=== PATIENT | male | born 1950 | race Caucasian/White ===

== ENCOUNTER 2019-05-04 10:35 | Outpatient (CLI) | payer MEDICARE, MEDICAID, SELFPAY ==
--- NOTE | 2019-05-06 21:25 | WPDPFTINT ---
PFT Interpretation PFT Interpretation: DOS: 05/04/2019 REQUESTING: Dr. Christa Clark REASON FOR TESTING: COPD PULMONARY FUNCTION TESTS Results are reproducible. Spirometry: Severe ventilatory impairment FEV1 49% predicted, 1.36 Liters. FVC moderately reduced 65%. FEV1% is decreased consistent with airflow obstruction. XUT42-61% extremely low 20% predicted. No bronchodilator was given. Lung volumes: Normal total lung capacity 102%. Moderate air trapping residual volume 147%. Increased airway resistance 223%. Diffusion: DLCO 84% normal. Flow volume loop: Scooping of the expiratory limb consistent with obstruction. IMPRESSION: Severe obstructive ventilatory defect with moderate air trapping, normal diffusion. Compared to a prior study 03/03/2014 values have improved. Previous FEV1 was 31%, 0.9 L pre bronchodilator. FVC was 47% now 65%. Spirometry values on the current test are better than the post bronchodilator values in 2014. There is less hyperinflation and less air trapping. Lower airway resistance. Marlene Loredo MD
== END 2019-05-04 10:36 | disposition home or self-care (01) ==
PROVIDERS: PCP Family Medicine; Visit Provider Family Medicine
DX: J44.9 Chronic obstructive pulmonary disease, unspecified (principal); R94.2 Abnormal results of pulmonary function studies
CPT/HCPCS: 94375; 94726; 94729

== ENCOUNTER 2019-09-10 08:20 | Outpatient (CLI) | payer MEDICARE, MEDICAID, SELFPAY ==
--- NOTE | ~2019-09-10 | CT_ITS ---
EXAMINATION: CT lung screening DATE: 09/10/2019 08:54 INDICATION: Personal history of tobacco dependence. TECHNIQUE: Computed tomography (CT) of the chest was performed without intravenous contrast. The dose -length product was 61.51 mGy-cm. Automated exposure control and iterative reconstruction technique w ere employed. COMPARISON: CT dated 07/22/2017 FINDINGS: Stable fusiform 4 cm aneurysm ascending thoracic aorta. No thoracic lymphadenopathy. There is atherosclerosis of the aorta and coronary arteries. Heart size normal. There is emphysema. Calcifi ed granuloma right lower lobe. There is left lower lobe bronchiectasis. The right upper lobe nodule s een on prior examination not visualized on the current study. Calcified granuloma left lower lobe. Mi ld thoracic spondylosis. No acute osseous abnormality. IMPRESSION: 1. Lung-RADS category 2: Benign appearance or behavior. Continue annual screening with noncontrast lo w-dose chest CT in 12 months. Reviewed, dictated and finalized at location A. IMPRESSION: 1. Lung-RADS category 2: Benign appearance or behavior. Continue annual screeni ng with noncontrast low-dose chest CT in 12 months.
== END 2019-09-10 08:21 | disposition home or self-care (01) ==
PROVIDERS: PCP Family Medicine; Visit Provider Family Medicine
DX: Z12.2 Encounter for screening for malignant neoplasm of respiratory organs (principal); Z87.891 Personal history of nicotine dependence
CPT/HCPCS: G0297

== ENCOUNTER 2020-03-23 07:20 | Outpatient (CLI) | payer MEDICARE, MEDICAID, SELFPAY ==
[2020-03-23 08:06] LABS: Basophils Percent Auto 0.5 % (0.2-1.2); Eosinophils Absolute Auto 0.4 K/mm3 (0-0.3); Eosinophils Percent Auto 4.3 % (0-4.4); Hematocrit 44.8 % (42.0-52.0); Hemoglobin 15.1 g/dL (14.0-18.0); Immature Granulocyte Absolute 0.03 K/mm3 (0.00-0.031); Immature Granulocyte Percent A 0.3 % (0-0.5); Lymphocytes Percent Auto 16.3 % (18.3-44.2); Mean Corpuscular HGB Conc 33.7 g/dl (32-36); Mean Corpuscular Hemoglobin 30.8 pg (26-34); Mean Corpuscular Volume 91.4 fl (80-100); Mean Platelet Volume 9.8 fl (7.4-10.4); Monocytes Absolute Auto 0.8 K/mm3 (0.1-0.6); Monocytes Percent Auto 9.4 % (2.6-8.5); Neutrophils Percent Auto 69.2 % (45.5-73.1); Platelet Count Result 279 k/mm3 (150-375); Red Cell Distribution Width 12.6 % (11.5-14.5); White Blood Count 8.6 K/mm3 (4.5-10.0)
[2020-03-23 08:11] LABS: Hemoglobin A1C 5.7 % (<5.7)
[2020-03-23 08:16] LABS: Alanine Aminotransferase 22 U/L (4-50); Albumin Level 4.3 g/dL (3.5-5.1); Alkaline Phosphatase 38 U/L (38-126); Anion Gap 6 mmol/L (8-16); Aspartate Amino Transferase 31 U/L (17-59); Bilirubin,Total 0.8 mg/dL (0.2-1.3); Blood Urea Nitrogen 11 mg/dL (9-20); Calcium 9.5 mg/dL (8.4-10.2); Carbon Dioxide 32 mmol/L (22-30); Chloride 99 mmol/L (98-107); Estimated Glomerular Filt Rate > 60; Glucose 104 mg/dL (75-110); Potassium 4.5 mmol/L (3.4-5.0); Sodium 137 mmol/L (137-145)
[2020-03-23 08:44] LABS: Prostate Specific Antigen 1.2 ng/mL (< OR = 4.0)
[2020-03-23 10:30] LABS: LDL Cholesterol Direct 75 mg/dL
[2020-03-23 10:35] LABS: Cholesterol 161 mg/dL (0-200); HDL Direct 65 mg/dL; Triglycerides 106 mg/dL (<150)
== END 2020-03-23 07:21 | disposition home or self-care (01) ==
PROVIDERS: PCP Family Medicine; Visit Provider Family Medicine
DX: R73.03 Prediabetes (principal); I10 Essential (primary) hypertension; E78.5 Hyperlipidemia, unspecified; Z12.5 Encounter for screening for malignant neoplasm of prostate
CPT/HCPCS: 36415; 80053; 80061; 83036; 84153; 84443; 85025; G0103

== ENCOUNTER 2020-11-22 07:08 | Outpatient (CLI) | payer MEDICARE, MEDICAID, SELFPAY ==
[2020-11-22 07:33] LABS: Basophils Absolute Auto 0.1 K/mm3 (0.0-0.1); Basophils Percent Auto 0.5 % (0.2-1.2); Eosinophils Absolute Auto 0.8 K/mm3 (0-0.3); Eosinophils Percent Auto 7.8 % (0-4.4); Hematocrit 45.9 % (42.0-52.0); Hemoglobin 15.3 g/dL (14.0-18.0); Immature Granulocyte Absolute 0.02 K/mm3 (0.00-0.031); Immature Granulocyte Percent A 0.2 % (0-0.5); Lymphocytes Percent Auto 13.1 % (18.3-44.2); Mean Corpuscular HGB Conc 33.3 g/dl (32-36); Mean Corpuscular Hemoglobin 31.1 pg (26-34); Mean Corpuscular Volume 93.3 fl (80-100); Mean Platelet Volume 9.2 fl (7.4-10.4); Monocytes Absolute Auto 0.8 K/mm3 (0.1-0.6); Monocytes Percent Auto 7.6 % (2.6-8.5); Neutrophils Absolute Auto 7.6 K/mm3 (1.3-6.7); Neutrophils Percent Auto 70.8 % (45.5-73.1); Platelet Count Result 271 k/mm3 (150-375); Red Blood Count 4.92 M/mm3 (4.6-6.20); Red Cell Distribution Width 12.9 % (11.5-14.5); White Blood Count 10.7 K/mm3 (4.5-10.0)
[2020-11-22 07:37] LABS: Hemoglobin A1C 5.6 % (<5.7)
[2020-11-22 07:41] LABS: Alanine Aminotransferase 22 U/L (4-50); Albumin Level 4.5 g/dL (3.5-5.1); Alkaline Phosphatase 41 U/L (38-126); Anion Gap 9 mmol/L (8-16); Aspartate Amino Transferase 35 U/L (17-59); Bilirubin,Total 0.7 mg/dL (0.2-1.3); Blood Urea Nitrogen 12 mg/dL (9-20); Calcium 9.4 mg/dL (8.4-10.2); Carbon Dioxide 25 mmol/L (22-30); Chloride 102 mmol/L (98-107); Cholesterol 163 mg/dL (0-200); Estimated Glomerular Filt Rate > 60; Glucose 85 mg/dL (65-110); HDL Direct 60 mg/dL; Potassium 3.9 mmol/L (3.4-5.0); Sodium 136 mmol/L (137-145); Triglycerides 96 mg/dL (<150)
[2020-11-22 07:52] LABS: LDL Cholesterol Direct 70 mg/dL
[2020-11-22 08:12] LABS: Vitamin D 25 Hydroxy 45.6 ng/mL
== END 2020-11-22 07:09 | disposition home or self-care (01) ==
PROVIDERS: PCP Family Medicine; Visit Provider Family Medicine
DX: Z00.00 Encounter for general adult medical examination without abnormal findings (principal); I10 Essential (primary) hypertension; E55.9 Vitamin D deficiency, unspecified; R73.03 Prediabetes; E78.5 Hyperlipidemia, unspecified
CPT/HCPCS: 36415; 80053; 80061; 82306; 83036; 84443; 85025

== ENCOUNTER 2021-06-28 07:04 | Outpatient (CLI) | payer MEDICARE, MEDICAID, SELFPAY ==
[2021-06-28 07:29] LABS: Basophils Absolute Auto 0.1 K/mm3 (0.0-0.1); Basophils Percent Auto 0.7 % (0.2-1.2); Eosinophils Absolute Auto 0.7 K/mm3 (0-0.3); Eosinophils Percent Auto 9.4 % (0-4.4); Hematocrit 44.3 % (42.0-52.0); Hemoglobin 15.4 g/dL (14.0-18.0); Immature Granulocyte Absolute 0.02 K/mm3 (0.00-0.031); Immature Granulocyte Percent A 0.3 % (0-0.5); Lymphocytes Absolute Auto 1.51 K/mm3 (0.9-3.2); Lymphocytes Percent Auto 20.2 % (18.3-44.2); Mean Corpuscular HGB Conc 34.8 g/dl (32-36); Mean Corpuscular Hemoglobin 31.7 pg (26-34); Mean Corpuscular Volume 91.2 fl (80-100); Mean Platelet Volume 9.7 fl (7.4-10.4); Monocytes Absolute Auto 0.8 K/mm3 (0.1-0.6); Monocytes Percent Auto 10.2 % (2.6-8.5); Neutrophils Absolute Auto 4.4 K/mm3 (1.3-6.7); Neutrophils Percent Auto 59.2 % (45.5-73.1); Platelet Count Result 314 k/mm3 (150-375); Red Blood Count 4.86 M/mm3 (4.6-6.20); White Blood Count 7.5 K/mm3 (4.5-10.0)
[2021-06-28 07:44] LABS: Hemoglobin A1C 5.4 % (<5.7)
[2021-06-28 07:50] LABS: Vitamin D 25 Hydroxy 46.2 ng/mL
[2021-06-28 08:10] LABS: Alanine Aminotransferase 22 U/L (4-50); Albumin Level 4.5 g/dL (3.5-5.1); Alkaline Phosphatase 38 U/L (38-126); Anion Gap 10 mmol/L (8-16); Aspartate Amino Transferase 32 U/L (17-59); Bilirubin,Total 0.8 mg/dL (0.2-1.3); Blood Urea Nitrogen 11 mg/dL (9-20); Calcium 9.1 mg/dL (8.4-10.2); Carbon Dioxide 27 mmol/L (22-30); Chloride 101 mmol/L (98-107); Cholesterol 175 mg/dL (0-200); Estimated Glomerular Filt Rate > 60; Glucose 95 mg/dL (65-110); HDL Direct 67 mg/dL; Potassium 3.9 mmol/L (3.4-5.0); Sodium 138 mmol/L (137-145); Triglycerides 88 mg/dL (<150)
[2021-06-28 08:28] LABS: LDL Cholesterol Direct 70 mg/dL
[2021-06-28 08:45] LABS: Prostate Specific Antigen 1.1 ng/mL (< OR = 4.0)
== END 2021-06-28 07:05 | disposition home or self-care (01) ==
PROVIDERS: PCP Family Medicine; Visit Provider Family Medicine
DX: E55.9 Vitamin D deficiency, unspecified (principal); R41.89 Other symptoms and signs involving cognitive functions and awareness; E78.5 Hyperlipidemia, unspecified; E53.8 Deficiency of other specified B group vitamins; I10 Essential (primary) hypertension; R73.03 Prediabetes; Z12.5 Encounter for screening for malignant neoplasm of prostate
CPT/HCPCS: 36415; 80053; 80061; 82306; 82607; 83036; 84153; 84443; 85025; G0103

== ENCOUNTER 2021-07-27 00:54 | Day surgery (SDC) | payer MEDICARE, MEDICAID, SELFPAY ==
[2021-07-17 12:02] VITALS: BMI 20.1
--- NOTE | 2021-07-26 15:14 | PM.HPGS ---
History of Present Illness History of Present Illness Consent: Risks, benefits, and alternatives have been discussed and questions answered. Patient agrees to proceed with procedure. Chief complaint: hx of colon polyps Narrative: Davion Valdez is a 70 year old male Referred for colon cancer screening. He has a history of polyps. Review of Systems Review of Systems: All systems reviewed & are unremarkable except as noted in HPI and below PMFSH Past Medical History Medical History Allergic rhinitis Environmental allergies GERD with esophagitis History of colon polyps History of stroke (~2014) HLD (hyperlipidemia) HTN (hypertension) Prediabetes Pulmonary nodule Severe chronic obstructive pulmonary disease Thoracic aortic aneurysm Surgical History Surgical History History of excision of mass 12/13/20 History of lumbosacral spine surgery 1980s History of umbilical hernia repair (~07/2016) History of ventral hernia repair (~07/2016) Family History Family History Sibling Cerebrovascular accident Hypertension Father Hypertension Other Family history of allergic disorder Family history of chronic obstructive pulmonary disease Social History Social History Social History: caffeine use: drinks coffee occasionally Smoking packs per day: 2 Smoking cigarettes per day: 40.0 Years smoked: 50 Smoking pack-years: 100.00 Tobacco type: cigarettes Smoking end date: 03/11/13 Alcohol intake: current Drinks per week: 28 Alcohol use details: drinks beer Substance use: never Living arrangements: with family Additional living arrangements comments: girlfriend Gender identity (if verbalized by the patient): Male Spiritual care concerns: No Meds Home Medications and Allergies Home Medications Medication Instructions Recorded Confirmed Type albuterol sulfate 90 mcg/actuation 2 puff INHALATION Q4H PRN #8.5 gm 04/29/19 07/27/21 Rx aerosol inhaler cetirizine 10 mg tablet 10 mg PO DAILY #30 tablet 11/16/20 07/27/21 Rx hydrochlorothiazide 12.5 mg tablet 12.5 mg PO DAILY #90 tablet 05/01/21 07/27/21 Rx losartan 25 mg tablet 25 mg PO DAILY tablet 06/27/21 07/27/21 History atorvastatin 20 mg tablet 20 mg PO QHS #90 tablet 07/03/21 07/27/21 Rx aspirin [Adult Low Dose Aspirin] 81 mg PO DAILY 07/17/21 07/27/21 History fluticasone propionate [Flovent 1 inh INHALATION DAILY 07/17/21 07/27/21 History Diskus] mv,Ca,bco-ofgg-CZ-lycopene 1 tablet PO DAILY 07/17/21 07/27/21 History [Centrum Men] omega-3 fatty acids-vitamin E 1 cap PO DAILY 07/17/21 07/27/21 History [Fish Oil] Allergies Allergy/AdvReac Type Severity Reaction Status Date / Time Penicillins Allergy Unknown unknown Verified 07/27/21 07:47 Exam Resp: Auscultation: clear to auscultation bilaterally Cardio: Rate: regular rate Rhythm: regular rhythm GI: GI Palp: Yes Soft to palpation and No Tenderness to palpation present (GI) Assessment and Plan Assessment and plan (1) Colon cancer screening: Code(s): Z12.11 - Encounter for screening for malignant neoplasm of colon Status: Acute Assessment and Plan: Colonoscopy with possible biopsy or polypectomy or cautery or injection of substances.
[2021-07-27 07:38] VITALS: BP 148/86; PULSE 96; RESP 18; TEMP 36.4; O2SAT 97; BMI 19.6
[2021-07-27] MEDS: LACTATED RINGERS 1,000 ML 150 ML IV CONT (07:58)
--- NOTE | 2021-07-27 08:25 | WPDANESEPPF ---
Anes - Initial Pre Proc Eval Procedure: Operation Date: 07/27/21 09:00 Proposed Procedures p Screening Colonoscopy - Anthony Morris MD Date/Time: 07/27/21 08:25 Surgeon: Anthony Morris MD Pre Op Diagnosis: hx of colon polyps Patient Data Age: 70 Gender: M Height: 1.65 m Weight: 53.5 kg Last Vital Signs Temp 36.4 C L 07/27/21 07:38 Pulse 96 07/27/21 07:38 Resp 18 07/27/21 07:38 BP 148/86 H 07/27/21 07:38 Pulse Ox 97 07/27/21 07:38 Allergies Allergy/AdvReac Type Severity Reaction Status Date / Time Penicillins Allergy Unknown unknown Verified 07/27/21 07:47 Home Medications Medication Instructions Recorded Confirmed Type albuterol sulfate 90 mcg/actuation 2 puff INHALATION Q4H PRN #8.5 gm 04/29/19 07/27/21 Rx aerosol inhaler cetirizine 10 mg tablet 10 mg PO DAILY #30 tablet 11/16/20 07/27/21 Rx hydrochlorothiazide 12.5 mg tablet 12.5 mg PO DAILY #90 tablet 05/01/21 07/27/21 Rx losartan 25 mg tablet 25 mg PO DAILY tablet 06/27/21 07/27/21 History atorvastatin 20 mg tablet 20 mg PO QHS #90 tablet 07/03/21 07/27/21 Rx aspirin [Adult Low Dose Aspirin] 81 mg PO DAILY 07/17/21 07/27/21 History fluticasone propionate [Flovent 1 inh INHALATION DAILY 07/17/21 07/27/21 History Diskus] mv,Ca,ufm-kjtq-IF-lycopene 1 tablet PO DAILY 07/17/21 07/27/21 History [Centrum Men] omega-3 fatty acids-vitamin E 1 cap PO DAILY 07/17/21 07/27/21 History [Fish Oil] Patient hx anesthesia problems: none Family hx anesthesia problems: none Results Review: All pre-operative results and documents have been reviewed as part of the pre-operative evaluation. [facility] Past Medical History Medical History (Updated 07/27/21 @ 08:27 by Calvin Lantigua MD) Allergic rhinitis Environmental allergies GERD with esophagitis History of colon polyps History of stroke (~2014) HLD (hyperlipidemia) HTN (hypertension) Prediabetes Pulmonary nodule Severe chronic obstructive pulmonary disease Thoracic aortic aneurysm 4cm on 2018 ct Surgical History Surgical History History of excision of mass 12/13/20 History of lumbosacral spine surgery 1980s History of umbilical hernia repair (~07/2016) History of ventral hernia repair (~07/2016) Family History Family History Sibling Cerebrovascular accident Hypertension Father Hypertension Other Family history of allergic disorder Family history of chronic obstructive pulmonary disease Social History Social History Social History: caffeine use: drinks coffee occasionally Smoking packs per day: 2 Smoking cigarettes per day: 40.0 Years smoked: 50 Smoking pack-years: 100.00 Tobacco type: cigarettes Smoking end date: 03/11/13 Alcohol intake: current Drinks per week: 28 Alcohol use details: drinks beer Substance use: never Living arrangements: with family Additional living arrangements comments: girlfriend Gender identity (if verbalized by the patient): Male Spiritual care concerns: No Anes - Eval Final PreProcedure Day of Procedure 07/27/21 08:25 Patient weight: obese Heart: regular rate and rhythm Lungs: clear to auscultation and normal air movement Airway: Mallampati scale class II Neurological: alert and oriented Last oral intake: >/= 8 hours ASA classification: III Emergent: no Anesthetic plan: proceed Anesthesia type and monitoring: general GIVS Results Review: All pre-operative results and documents have been reviewed as part of the pre-operative evaluation. Informed Consent: The patient's anesthetic plan and its attendant risks and benefits were discussed with the patient/family/POA. Questions were solicited and answers provided to the satisfaction of the patient/family/POA.
--- NOTE | 2021-07-27 09:16 | SUR.OPER ---
RN verified with Dr. Morris the collection of one sigmoid polyp
[2021-07-27 09:18] VITALS: BP 101/71; PULSE 89; RESP 22; O2SAT 99
[2021-07-27 09:28] VITALS: BP 111/78; PULSE 74; RESP 20; O2SAT 99
[2021-07-27 09:38] VITALS: BP 112/75; PULSE 74; RESP 22; O2SAT 99
== END 2021-07-27 09:53 | disposition home or self-care (01) ==
PROVIDERS: PCP Family Medicine; Visit Provider Internal Medicine Gastroenterology
PROC: 0DJD8ZZ Inspection of Lower Intestinal Tract, Via Natural or Artificial Opening Endoscopic (ICD-10-PCS; CPT 45378; principal; 2021-07-27 09:00)
DX: Z12.11 Encounter for screening for malignant neoplasm of colon (principal); K57.30 Diverticulosis of large intestine without perforation or abscess without bleeding; D12.5 Benign neoplasm of sigmoid colon; I10 Essential (primary) hypertension; E78.5 Hyperlipidemia, unspecified; R73.03 Prediabetes; K21.9 Gastro-esophageal reflux disease without esophagitis; J44.9 Chronic obstructive pulmonary disease, unspecified; I71.2 Thoracic aortic aneurysm, without rupture; Z79.51 Long term (current) use of inhaled steroids; Z79.82 Long term (current) use of aspirin; Z87.891 Personal history of nicotine dependence; E66.9 Obesity, unspecified
CPT/HCPCS: 45385; 88305; J2704; J7120

== ENCOUNTER 2021-07-28 06:36 | Outpatient (CLI) | payer MEDICARE, MEDICAID, SELFPAY ==
--- NOTE | ~2021-07-28 | CT_ITS ---
EXAMINATION: CT lung screening DATE: 07/28/2021 07:04 INDICATION: Z12.2 - Encounter for screening for malignant neoplasm of... TECHNIQUE: Computed tomography (CT) of the chest was performed without intravenous contrast. Addition al 3D reconstructions utilizing coronal maximum intensity projection (MIP) were performed. Automated exposure control and iterative reconstruction technique were employed. The dose-length product was 63 .21 mGy-cm. COMPARISON: 09/10/2019 FINDINGS: Mild emphysema. Again seen is mild bronchiectasis in the left lower lobe along with multiple <4 mm pu lmonary nodules. There are some new groundglass opacity along with several additional <4 mm pulmonary nodules in the right upper lobe. Calcified right lower lobe nodule and calcified mediastinal lymph n odes consistent with old granulomatous disease. No pleural effusion. Heart size is normal. Atheroscle rotic coronary artery calcification. Unchanged fusiform 4.1 cm ascending thoracic aortic aneurysm. No pathologically enlarged thoracic lymphadenopathy. IMPRESSION: 1. Lung-RADS category 2: Benign appearance or behavior. Continue annual screening with noncontrast lo w-dose chest CT in 12 months. 2. Unchanged 4.1 cm ascending thoracic aortic aneurysm. Reviewed, dictated and finalized at location A. IMPRESSION: 1. Lung-RADS category 2: Benign appearance or behavior. Continue annual screeni ng with noncontrast low-dose chest CT in 12 months. 2. Unchanged 4.1 cm ascending thoracic aortic aneurysm.
== END 2021-07-28 06:37 | disposition home or self-care (01) ==
PROVIDERS: PCP Family Medicine; Visit Provider Family Medicine
DX: Z12.2 Encounter for screening for malignant neoplasm of respiratory organs (principal); Z87.891 Personal history of nicotine dependence; I71.2 Thoracic aortic aneurysm, without rupture
CPT/HCPCS: 71271

== ENCOUNTER 2021-10-11 08:19 | Outpatient (CLI) | payer MEDICARE, MEDICAID, SELFPAY ==
[2021-10-11 10:06] LABS: Anion Gap 10 mmol/L (8-16); Blood Urea Nitrogen 13 mg/dL (9-20); Calcium 9.1 mg/dL (8.4-10.2); Carbon Dioxide 29 mmol/L (22-30); Chloride 101 mmol/L (98-107); Estimated Glomerular Filt Rate > 60; Glucose 95 mg/dL (65-110); Potassium 4.2 mmol/L (3.4-5.0); Sodium 140 mmol/L (137-145)
== END 2021-10-11 08:20 | disposition home or self-care (01) ==
LOC: ANHSURGERY 08:26
PROVIDERS: Anesthesiology; PCP Family Medicine; Visit Provider Surgery
DX: Z01.818 Encounter for other preprocedural examination (principal); Z79.899 Other long term (current) drug therapy
CPT/HCPCS: 36415; 80048

== ENCOUNTER 2021-10-13 01:19 | Day surgery (SDC) | payer MEDICARE, MEDICAID, SELFPAY ==
[2021-10-10 13:44] VITALS: BMI 19.8
--- NOTE | 2021-10-10 13:45 | PC.NURSE ---
PRE-OP INSTRUCTIONS, PLEASE READ CAREFULLY Report to the Outpatient Waiting Room, entrance under the green pavilion located off [facility], at time _0930_ on date _10/13/21_. OR Time: _1130_. - You and your visitor will be asked a series of questions to screen for COVID 19 for your protection. - Only one visitor is allowed at this time. - The patient visitor is requested to leave or wait in car when not with patient. - A mask is required within the hospital. Patients may have clear liquids (water, carbonated beverages, clear teas, apple juice) until 3 hours prior to surgery (0830 AM) with a maximum of 20 ounces. - No food from midnight until time of surgery Take the following medications with a SIP of water the morning of surgery: _FLOVENT INHALER_ Medications to discontinue per physician _MULTIVITAMIN, FISH OIL 3 DAYS PRIOR TO SURGERY, Date to take last dose 10/10/21_ Please no make-up, nail vietnamese, hairspray, perfume, deodorant, or body powder the day of surgery. No jewelry (including any body piercings) or valuables the day of surgery, leave them at home. Please take a shower or bath the night before, or the morning of, surgery with an antibacterial soap. Wear comfortable, loose fitting clothing. - Jewelry must be removed prior to entering the operating room. Rings and piercings that are not removed may be cut off. - The hospital will not accept responsibility for valuables. - Please leave all valuables, including medications, at home the day of surgery. If you are going home after surgery, a licensed recycler forklift driver truck driver must drive you home. - NO public transportation without another adult. - We recommend that an adult stay with you for 24 hours following discharge. - We also recommend that you do not drive, make important decision, drink alcoholic beverages, or take any drugs that were not prescribed by your health care provider for at least 24 hours after your discharge time. Follow any additional instructions given to you from your surgeon. If you or anyone in your household have experienced Covid symptoms in the past week, please notify your surgeon or the nurse liaison at the phone number below for possible testing. Telephone instructions given to _CLARA WARD_and asked if any additional questions and then verbalized understanding. Patient advised to call surgeon office or pre surgery nurse liaison [phone] if any additional questions.
[2021-10-13] VITALS (7 sets, daily range): BP systolic 124–143; BP diastolic 61–85; PULSE 72–95; RESP 16–25; TEMP 36.4; O2SAT 96–100
[2021-10-13] MEDS: LACTATED RINGERS 1,000 ML 30 ML IV CONT (10:40)
--- NOTE | 2021-10-13 11:26 | WPDANESEPPF ---
Anes - Initial Pre Proc Eval Procedure: Operation Date: 10/13/21 11:30 Proposed Procedures p Excision Skin Lesions Of Back, Times Two - Paul Cheatham DO Date/Time: 10/13/21 11:26 Surgeon: Paul Cheatham DO Pre Op Diagnosis: Skin Lesion of Back Patient Data Age: 70 Gender: M Height: 1.65 m Weight: 53 kg Last Vital Signs Temp 97.5 F L 10/13/21 09:54 Pulse 95 10/13/21 09:54 Resp 22 H 10/13/21 09:54 BP 137/61 10/13/21 09:54 Pulse Ox 97 10/13/21 09:54 O2 Del Method Room Air 10/13/21 09:54 Allergies Allergy/AdvReac Type Severity Reaction Status Date / Time Penicillins Allergy Unknown THROAT Verified 10/13/21 09:54 SWELLING Home Medications Medication Instructions Recorded Confirmed Type albuterol sulfate 90 mcg/actuation 2 puff inhalation Q4H PRN 04/29/19 10/13/21 Rx aerosol inhaler bronchospasm #8.5 grams cetirizine 10 mg tablet (Zyrtec) 10 mg PO DAILY #30 tabs 11/16/20 10/13/21 Rx hydrochlorothiazide 12.5 mg tablet 12.5 mg PO DAILY #90 tabs 05/01/21 10/13/21 Rx losartan 25 mg tablet 25 mg PO DAILY 06/27/21 10/13/21 History atorvastatin 20 mg tablet 20 mg PO QHS #90 tabs 07/03/21 10/13/21 Rx aspirin 81 mg tablet 81 mg PO DAILY 07/17/21 10/13/21 History fluticasone propionate 250 1 inh inhalation DAILY 07/17/21 10/13/21 History mcg/actuation blister powder for inhalation (Flovent Diskus) multivit,Ca,min-iron 8 mg-folic 1 tablet PO DAILY 07/17/21 10/13/21 History acid 200 mcg-lycopene 600 mcg tablet (Centrum Men) omega-3 fatty acids-vitamin E 1 cap PO DAILY 07/17/21 10/13/21 History 1,000 mg capsule Patient hx anesthesia problems: none Family hx anesthesia problems: none Results Review: All pre-operative results and documents have been reviewed as part of the pre-operative evaluation. PMFSH Past Medical History Medical History Allergic rhinitis Environmental allergies GERD with esophagitis History of colon polyps History of stroke (~2014) HLD (hyperlipidemia) HTN (hypertension) Prediabetes Pulmonary nodule Severe chronic obstructive pulmonary disease Thoracic aortic aneurysm 4cm on 2018 ct Surgical History Surgical History History of excision of mass 12/13/20 History of lumbosacral spine surgery 1980s History of umbilical hernia repair (~07/2016) History of ventral hernia repair (~07/2016) Family History Family History Sibling Cerebrovascular accident Hypertension Father Hypertension Other Family history of allergic disorder Family history of chronic obstructive pulmonary disease Social History Social History Social History: caffeine use: drinks coffee occasionally Smoking packs per day: 2 Smoking cigarettes per day: 40.0 Years smoked: 50 Smoking pack-years: 100.00 Smoking status: Former smoker Tobacco type: cigarettes Second hand tobacco smoke exposure: No Smoking end date: 03/11/13 Additional smoking assessment comments: HOW MUCH/HOW LONG PT SMOKED UNKOWN, SIGNIFICANT OTHER STATES PT QUIT 2013 Alcohol intake: current Drinks per week: 28 Alcohol use details: drinks beer Substance use: never Substance use type: does not use Living arrangements: other Additional living arrangements comments: LIVES WITH SIGNIFICANT OTHER Gender identity (if verbalized by the patient): Male Spiritual care concerns: No Anes - Eval Final PreProcedure Day of Procedure 10/13/21 11:26 Patient weight: normal Heart: regular rate and rhythm Lungs: clear to auscultation Airway: Mallampati scale class II Neurological: alert and oriented Last oral intake: >/= 8 hours ASA classification: III Emergent: no Anesthetic plan: proceed Anesthesia type and monitoring: general LM
--- NOTE | 2021-10-13 11:28 | WPDHPUPDATE1 ---
History and Physical Update Update Date/Time: 10/13/21 11:28 History and Physical has been reviewed, including an updated exam of the patient. There are NO changes in the patient's condition. Risks, benefits, and alternatives have been discussed and questions answered. Patient agrees to proceed with procedure.
[2021-10-13] MEDS: ceFAZolin 2 GM/D5W 50 ML 2 GM/50 ML BAG IVPB (11:47)
[2021-10-13] MEDS: LIDO 1%/EPINEPHRINE 1:100,000 50 ML VIAL 10 ML INFILTRATE (12:07)
--- NOTE | 2021-10-13 12:22 | W.PM.PROC2 ---
Procedure Note - Detailed Date of Procedure 10/13/21 Pre-op Diagnosis Skin Lesion of Back Post-op Diagnosis Same Procedure Performed Excision of 13 mm back skin lesion x2 Surgeon Paul Cheatham, DO Anesthesia MAC and Local (1% lidocaine with epinephrine) Indications This is a 70-year-old man who presented with 2 skin lesions on his back. They had been increasing in size recently and the 1 on his left lower back was causing pain. Both lesions were raised pink discolored skin lesions measuring 11 mm. Discussions were made with the patient about treatment options and decision was made to proceed with excision of both or skin lesions under IV sedation. Findings Patient had a left lower back skin lesion measuring 11 mm. An elliptical incision was made to excise this skin lesion completely with 1 mm margins for a total width of 13 mm. Patient also had an upper midline back skin lesion also measuring 11 mm. A vertical elliptical incision was made to excise the skin lesion completely with 1 mm margins for a total width of 13 mm. Both skin lesions were sent to the lab for pathology. Description of Procedure Procedure as well as risks, benefits, and alternatives were discussed with the patient. Written consent was obtained and placed in chart prior to procedure. Patient was brought back to surgical suite. He was placed supine on operating table. Time-out was done confirm patient and procedure. IV sedation was then administered by Anesthesia Department. He was then repositioned into right lateral position. His back area was prepped and draped in sterile fashion using chlorhexidine prep. 1% lidocaine with epinephrine was infiltrated locally around each of the lesions. An elliptical incision was made around the left lower back skin lesion in a transverse fashion using a 15 blade scalpel. The skin lesion was sharply excised completely using the 15 blade scalpel. Electrocautery was then used for hemostasis. The skin edges were then reapproximated using 4-0 nylon simple interrupted sutures. A vertical elliptical incision was made around the upper midline back skin lesion using a 15 blade scalpel. The skin lesion was completely excised using the 15 blade scalpel. Electrocautery was used for hemostasis. The skin edges were then reapproximated using 4-0 nylon simple interrupted sutures. Bacitracin ointment was then applied over each incision followed by 2 x 2 gauze and Tegaderm dressing. The patient was then awakened from anesthesia and transferred to recovery. Estimated Blood Loss 5 Pathology Yes (Back skin lesion x2) Complications No immediate complications Condition Stable Disposition Same day [facility] Billing Surgery - Charge Forward: Surgery Billing
== END 2021-10-13 13:50 | disposition home or self-care (01) ==
PROVIDERS: PCP Family Medicine; Visit Provider Surgery
PROC: (CPT 64788; principal; 2021-10-13 11:30)
DX: D36.17 Benign neoplasm of peripheral nerves and autonomic nervous system of trunk, unspecified (principal); Z79.82 Long term (current) use of aspirin; Z79.51 Long term (current) use of inhaled steroids; K21.00 Gastro-esophageal reflux disease with esophagitis, without bleeding; I10 Essential (primary) hypertension; E78.5 Hyperlipidemia, unspecified; R73.03 Prediabetes; J44.9 Chronic obstructive pulmonary disease, unspecified; I71.2 Thoracic aortic aneurysm, without rupture; Z87.891 Personal history of nicotine dependence
CPT/HCPCS: 64788 ×2; 36415; 80048; 88304; 88342; A9270; J0690; J2704; J3010; J7120

== ENCOUNTER 2022-07-03 11:42 | Outpatient (CLI) | payer MEDICARE, MEDICAID, SELFPAY ==
[2022-07-03 20:04] LABS: Alanine Aminotransferase 24 U/L (6-50); Albumin Level 4.3 g/dL (3.5-5.1); Alkaline Phosphatase 36 U/L (38-126); Anion Gap 5 mmol/L (8-16); Aspartate Amino Transferase 40 U/L (17-59); Bilirubin,Total 0.7 mg/dL (0.2-1.3); Blood Urea Nitrogen 11 mg/dL (9-20); Carbon Dioxide 36 mmol/L (22-30); Chloride 97 mmol/L (98-107); Cholesterol 159 mg/dL (0-200); Estimated Glomerular Filt Rate > 60; Glucose 101 mg/dL (65-110); HDL Direct 53 mg/dL; Potassium 3.7 mmol/L (3.4-5.0); Sodium 138 mmol/L (137-145); Triglycerides 211 mg/dL (<150)
[2022-07-03 20:15] LABS: LDL Cholesterol Direct 69 mg/dL
[2022-07-03 20:30] LABS: Vitamin D 25 Hydroxy 36.9 ng/mL
[2022-07-03 20:32] LABS: Prostate Specific Antigen 1.2 ng/mL (< OR = 4.0)
[2022-07-03 20:35] LABS: Basophils Absolute Auto 0.1 K/mm3 (0.0-0.1); Basophils Percent Auto 0.4 % (0.2-1.2); Eosinophils Absolute Auto 0.4 K/mm3 (0-0.3); Eosinophils Percent Auto 3.7 % (0-4.4); Immature Granulocyte Absolute 0.04 K/mm3 (0.00-0.031); Immature Granulocyte Percent A 0.4 % (0-0.5); Lymphocytes Absolute Auto 1.17 K/mm3 (0.9-3.2); Lymphocytes Percent Auto 10.4 % (18.3-44.2); Mean Corpuscular HGB Conc 32.6 g/dl (32-36); Mean Corpuscular Hemoglobin 30.5 pg (26-34); Mean Corpuscular Volume 93.5 fl (80-100); Mean Platelet Volume 10.5 fl (7.4-10.4); Monocytes Percent Auto 9.1 % (2.6-8.5); Neutrophils Absolute Auto 8.6 K/mm3 (1.3-6.7); Platelet Count Result 321 k/mm3 (150-375); Red Blood Count 4.92 M/mm3 (4.6-6.20); White Blood Count 11.3 K/mm3 (4.5-10.0)
[2022-07-03 21:14] LABS: Hemoglobin A1C 5.5 % (<5.7)
== END 2022-07-03 11:43 | disposition home or self-care (01) ==
LOC: ANHGOSHLAB 11:44
PROVIDERS: PCP Family Medicine; Visit Provider Family Medicine
DX: E55.9 Vitamin D deficiency, unspecified (principal); I10 Essential (primary) hypertension; E78.5 Hyperlipidemia, unspecified; E53.8 Deficiency of other specified B group vitamins; R73.03 Prediabetes; Z12.5 Encounter for screening for malignant neoplasm of prostate
CPT/HCPCS: 36415; 80053; 80061; 82306; 82607; 83036; 84153; 84443; 85025; G0103

== ENCOUNTER 2022-07-18 08:58 | Outpatient (CLI) | payer MEDICARE, MEDICAID, SELFPAY ==
--- NOTE | 2022-07-18 12:41 | WPDPFTINT ---
PFT Procedure Performed PFT Procedure Performed Spirometry with Pre/Post Bronchodilator Plethysmography (Lung Vol) Diffusing Cap (DLCO) Flow Vol Loop PFT Interpretation This is a pulmonary function test with pre and post-bronchodilator spirometry, plethysmography and diffusing capacity. The test was performed and results interpreted in accordance with the 2019 and 2005 ATS/ERS Task Force guidelines respectively using the Global Lung Function Initiative-2012 reference equations. Patient demonstrated good effort and cooperation. Reproducibility criteria were met. The quality of the pre bronchodilator spirometry maneuver was Grade B and post bronchodilator spirometry maneuver was Grade B. Findings: Spirometry: There is decreased maximal expiratory airflow at all lung volumes with concave expiratory flow tracing. Contour the inspiratory flow tracing is normal. The pre bronchodilator FVC is 2.31 L, 61% predicted. The pre bronchodilator FEV1 is 1.23 L, 42% predicted. The pre bronchodilator FEV1: FVC ratio is 53%. The post bronchodilator FVC is 3.12 L, representing a 35% increase. The post bronchodilator FEV1 is 1.31 L, representing a 6% increase. The post bronchodilator FEV1: FVC ratio is 42%. Plethysmography: The total lung capacity is 6.44 L, 101% predicted. The functional residual capacity is 4.88 L, 145% predicted. The residual volume is 4.13 L, 181% predicted. Diffusion capacity: Diffusing capacity unadjusted for hemoglobin and carboxyhemoglobin is 12.4, 50% predicted. The diffusing capacity adjusted for alveolar volume is 4.04, 98% predicted. Impression: There is a severe obstructive abnormality with significant improvement after inhaling a single dose of albuterol. The increase in residual volume is consistent with air trapping from an obstructive abnormality. Hyperinflation is present as demonstrated by the increase in functional residual capacity and is consistent with an obstructive abnormality. The diffusing capacity unadjusted for hemoglobin and carboxyhemoglobin is moderately decreased and normalizes when adjusted for alveolar volume. There are no prior studies for comparison
== END 2022-07-18 08:59 | disposition home or self-care (01) ==
LOC: ANHPFT 08:59
PROVIDERS: PCP Family Medicine; Visit Provider Family Medicine
DX: J44.9 Chronic obstructive pulmonary disease, unspecified (principal); R94.2 Abnormal results of pulmonary function studies
CPT/HCPCS: 94060; 94726; 94729

== ENCOUNTER 2022-08-23 17:44 | Emergency (ER) | payer MEDICARE, MEDICAID, SELFPAY ==
[2022-08-23 17:59] VITALS: BP 124/83; PULSE 101; RESP 18; TEMP 36.6; O2SAT 96
--- NOTE | 2022-08-23 22:11 | PC.NURSE ---
Pt is requesting help to quit drinking. States his last drink was 07/20/22 and was in nursing home for the past 20 days. He was released on 08/10. This RN informed him that he has already completely detoxed from alcohol. When this RN asked him what emergent medical emergency we can help him with tonight, his family member states He needs help because he has nowhere to go since he was kicked out of the mobile home . This RN educated pt and family member about the use of the ER, including treatment of emergent conditions. This RN offered pt list of homeless shelters and pt states That's all anybody's been doing for me. Offering resources . Pt has no complaints. Denies pain. Denies n/v/d.
[2022-08-23 22:38] VITALS: BP 127/83; PULSE 88; RESP 18; O2SAT 98
--- NOTE | 2022-08-23 22:58 | PC.NURSE ---
List of homeless shelters and list of AA meetings provided to pt. Pt demands to be admitted to the hospital because he is homeless and doesn't have anywhere to go. This RN informed pt that we cannot admit pt to the hospital because he is homeless. Pt states I'm ill. I want to drink all the time . This RN reinforced that pt will not be admitted to the hospital. This RN encouraged pt to contact AA to attend meetings to continue his sobriety.
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
[2022-08-23 23:13] VITALS: BP 127/88; PULSE 87; RESP 18; O2SAT 96
== END 2022-08-23 23:16 | disposition home or self-care (01) ==
PROVIDERS: Emergency Provider Physician Assistant; PCP Family Medicine
DX: F10.90 Alcohol use, unspecified, uncomplicated (principal); J44.9 Chronic obstructive pulmonary disease, unspecified; E78.5 Hyperlipidemia, unspecified; I10 Essential (primary) hypertension; R73.03 Prediabetes; Z86.010 Personal history of colon polyps; Z86.73 Personal history of transient ischemic attack (TIA), and cerebral infarction without residual deficits; Z87.891 Personal history of nicotine dependence
CPT/HCPCS: 99281

== ENCOUNTER 2023-06-21 08:06 | Outpatient (CLI) | payer MEDICARE, MEDICAID, SELFPAY ==
[2023-06-21 08:31] LABS: Basophils Percent Auto 0.4 % (0.2-1.2); Eosinophils Absolute Auto 0.5 K/mm3 (0-0.3); Eosinophils Percent Auto 5.6 % (0-4.4); Hematocrit 47.1 % (42.0-52.0); Immature Granulocyte Absolute 0.03 K/mm3 (0.00-0.031); Immature Granulocyte Percent A 0.3 % (0-0.5); Lymphocytes Absolute Auto 1.51 K/mm3 (0.9-3.2); Lymphocytes Percent Auto 15.7 % (18.3-44.2); Mean Corpuscular HGB Conc 31.8 g/dl (32-36); Mean Corpuscular Hemoglobin 29.9 pg (26-34); Mean Corpuscular Volume 93.8 fl (80-100); Mean Platelet Volume 9.6 fl (7.4-10.4); Monocytes Absolute Auto 0.7 K/mm3 (0.1-0.6); Monocytes Percent Auto 7.7 % (2.6-8.5); Neutrophils Absolute Auto 6.8 K/mm3 (1.3-6.7); Neutrophils Percent Auto 70.3 % (45.5-73.1); Platelet Count Result 298 k/mm3 (150-375); Red Blood Count 5.02 M/mm3 (4.6-6.20); Red Cell Distribution Width 13.5 % (11.5-14.5); White Blood Count 9.6 K/mm3 (4.5-10.0)
[2023-06-21 08:40] LABS: Alanine Aminotransferase 16 U/L (6-50); Albumin Level 4.2 g/dL (3.5-5.1); Alkaline Phosphatase 43 U/L (38-126); Anion Gap 5 mmol/L (4-12); Aspartate Amino Transferase 29 U/L (17-59); Bilirubin,Total 0.7 mg/dL (0.2-1.3); Blood Urea Nitrogen 11 mg/dL (9-20); Calcium 9.5 mg/dL (8.4-10.2); Carbon Dioxide 29 mmol/L (22-30); Chloride 106 mmol/L (98-107); Cholesterol 203 mg/dL (0-200); Estimated Glomerular Filt Rate > 60; Glucose 97 mg/dL (65-110); HDL Direct 67 mg/dL; Potassium 4.1 mmol/L (3.4-5.0); Sodium 140 mmol/L (137-145); Triglycerides 137 mg/dL (<150)
[2023-06-21 08:51] LABS: Hemoglobin A1C 5.6 % (<5.7); LDL Cholesterol Direct 116 mg/dL
[2023-06-21 09:16] LABS: Vitamin D 25 Hydroxy 27.4 ng/mL
== END 2023-06-21 08:07 | disposition home or self-care (01) ==
LOC: ANHLAB 08:09
PROVIDERS: PCP Family Medicine; Visit Provider Nurse Practitioner Family
DX: J44.9 Chronic obstructive pulmonary disease, unspecified (principal); E78.5 Hyperlipidemia, unspecified; Z13.29 Encounter for screening for other suspected endocrine disorder; E55.9 Vitamin D deficiency, unspecified; R73.03 Prediabetes
CPT/HCPCS: 36415; 80053; 80061; 82306; 83036; 84443; 85025

== ENCOUNTER 2024-07-02 11:25 | Outpatient (CLI) | payer MEDICARE, MEDICAID, SELFPAY ==
[2024-07-02 12:27] LABS: Alanine Aminotransferase 24 U/L (6-50); Albumin Level 4.4 g/dL (3.5-5.1); Alkaline Phosphatase 45 U/L (38-126); Anion Gap 6 mmol/L (4-12); Aspartate Amino Transferase 29 U/L (17-59); Bilirubin,Total 1.2 mg/dL (0.2-1.3); Blood Urea Nitrogen 17 mg/dL (9-20); Carbon Dioxide 34 mmol/L (22-30); Chloride 96 mmol/L (98-107); Cholesterol 167 mg/dL (0-200); Estimated Glomerular Filt Rate > 60; Glucose 95 mg/dL (65-110); HDL Direct 72 mg/dL; Potassium 3.4 mmol/L (3.4-5.0); Sodium 136 mmol/L (137-145); Triglycerides 99 mg/dL (<150)
[2024-07-02 12:40] LABS: LDL Cholesterol Direct 61 mg/dL
[2024-07-02 12:45] LABS: Creatinine Urine 284.4 mg/dL
[2024-07-02 12:49] LABS: MALB Creatinine Ratio 7.4 mg/g (0-30); Microalbumin Urine Random 21.1 mg/L (0-16.7)
[2024-07-02 12:54] LABS: Hemoglobin A1C 5.7 % (<5.7)
[2024-07-02 12:57] LABS: Prostate Specific Antigen 1.3 ng/mL (< OR = 4.0)
[2024-07-03 23:19] LABS: Hepatitis C Virus Antibody Negative (Negative)
== END 2024-07-02 11:26 | disposition home or self-care (01) ==
LOC: ANHLAB 11:27
PROVIDERS: PCP Family Medicine; Visit Provider Family Medicine
DX: Z13.1 Encounter for screening for diabetes mellitus (principal); Z11.59 Encounter for screening for other viral diseases; E78.5 Hyperlipidemia, unspecified; I10 Essential (primary) hypertension; Z12.5 Encounter for screening for malignant neoplasm of prostate
CPT/HCPCS: 36415; 80053; 80061; 82043; 83036; 84153; 86803; G0103

== ENCOUNTER 2024-07-07 08:06 | Outpatient (CLI) | payer MEDICARE, MEDICAID, SELFPAY ==
--- NOTE | ~2024-07-07 | CT_ITS ---
CT Scan of the Chest without Contrast: Clinical Indication: Lung cancer screening, nicotine dependence Technique: Contiguous sections were acquired throughout the chest without intravenous contrast. Dose reduction technique was used on this scan by utilizing automated exposure control and iterative recon struction technique. The dose-length product (DLP) was 62.71 mGy-cm. COMPARISON: 07/28/2021 Findings: There is no evidence of any significant mediastinal, hilar or axillary lymphadenopathy. Extensive cor onary artery calcium cages are present. Ascending aorta measures 4 cm in diameter, upper limits of no rmal. There is no evidence of pleural or pericardial effusion. There is probable mild emphysema. There are scattered tree-in-bud opacities with mild bronchiolectasi s, most notably at the lingula and anteroinferior right upper lobe. There are similar findings in the left lower lobe as well. Images through the upper abdomen reveal no abnormalities. Impression: Lung RADS 2: Benign appearance. [address] advised. Findings compatible with acute on chronic small airways infectious process, as detailed above. Mild e mphysema. Reviewed, dictated and finalized at location . Impression: Lung RADS 2: Benign appearance. [address] advised. Findings compatible with acute on chronic small airways infectious process, as detailed above. Mild emphysema.
== END 2024-07-07 08:07 | disposition home or self-care (01) ==
PROVIDERS: PCP Family Medicine; Visit Provider Family Medicine
DX: Z12.2 Encounter for screening for malignant neoplasm of respiratory organs (principal); Z87.891 Personal history of nicotine dependence
CPT/HCPCS: 71271

== ENCOUNTER 2024-09-28 10:03 | Outpatient (CLI) | payer MEDICARE, MEDICAID, SELFPAY ==
[2024-09-28 10:55] LABS: Hematocrit 43.4 % (42.0-52.0); Hemoglobin 14.6 g/dL (14.0-18.0); Immature Granulocyte Percent A 0.4 % (0-0.5); Lymphocytes Absolute Auto 1.22 K/mm3 (0.9-3.2); Mean Corpuscular HGB Conc 33.6 g/dl (32-36); Mean Corpuscular Hemoglobin 30.7 pg (26-34); Mean Corpuscular Volume 91.4 fl (80-100); Nucleated Red Blood Cells Absolute Auto 0.000 K/mm3 (0.0-0.012); Nucleated Red Blood Cells Perc 0.0 % (0.0-0.2); Platelet Count Result 281 k/mm3 (150-375); Red Blood Count 4.75 M/mm3 (4.6-6.20); White Blood Count 13.6 K/mm3 (4.5-10.0)
[2024-09-28 11:16] LABS: Alanine Aminotransferase 32 U/L (6-50); Albumin Level 4.5 g/dL (3.5-5.1); Alkaline Phosphatase 39 U/L (38-126); Anion Gap 7 mmol/L (4-12); Aspartate Amino Transferase 44 U/L (17-59); Bilirubin,Total 1.6 mg/dL (0.2-1.3); Blood Urea Nitrogen 19 mg/dL (9-20); Calcium 9.5 mg/dL (8.4-10.2); Carbon Dioxide 31 mmol/L (22-30); Chloride 96 mmol/L (98-107); Estimated Glomerular Filt Rate > 60; Glucose 112 mg/dL (65-110); Potassium 3.1 mmol/L (3.4-5.0); Sodium 134 mmol/L (137-145); Total Protein 8.3 g/dL (6.3-8.2)
[2024-09-28 11:47] LABS: Thyroid Stimulating Hormone Reflex 1.330 uIU/mL (0.465-4.68)
== END 2024-09-28 10:04 | disposition home or self-care (01) ==
PROVIDERS: PCP Family Medicine; Visit Provider Family Medicine
DX: I10 Essential (primary) hypertension (principal); R55 Syncope and collapse
CPT/HCPCS: 36415; 80053; 84443; 85025; 85380

== ENCOUNTER 2024-10-13 11:11 | Outpatient (CLI) | payer MEDICARE, MEDICAID, SELFPAY ==
--- NOTE | ~2024-10-13 | XR_ITS ---
Clinical Indication: Shortness of breath PA and lateral views of the chest: Comparison: 02/09/2014 Findings: The lungs are clear, without evidence of focal consolidation or pleural effusion. COPD lora duong present. Cardiomediastinal silhouette is within normal limits. Bones and soft tissues are unremar kable. Impression: Clear lungs. Probable COPD. Reviewed, dictated and finalized at location . Impression: Clear lungs. Probable COPD.
[2024-10-13 12:14] LABS: Hematocrit 44.4 % (42.0-52.0); Hemoglobin 14.5 g/dL (14.0-18.0); Immature Granulocyte Percent A 0.3 % (0-0.5); Lymphocytes Absolute Auto 1.07 K/mm3 (0.9-3.2); Mean Corpuscular HGB Conc 32.7 g/dl (32-36); Mean Corpuscular Hemoglobin 30.9 pg (26-34); Mean Corpuscular Volume 94.7 fl (80-100); Nucleated Red Blood Cells Absolute Auto 0.000 K/mm3 (0.0-0.012); Nucleated Red Blood Cells Perc 0.0 % (0.0-0.2); Platelet Count Result 357 k/mm3 (150-375); Red Blood Count 4.69 M/mm3 (4.6-6.20); White Blood Count 9.1 K/mm3 (4.5-10.0)
[2024-10-13 12:33] LABS: Alanine Aminotransferase 33 U/L (6-50); Albumin Level 4.5 g/dL (3.5-5.1); Alkaline Phosphatase 38 U/L (38-126); Anion Gap 10 mmol/L (4-12); Aspartate Amino Transferase 35 U/L (17-59); Bilirubin,Total 0.8 mg/dL (0.2-1.3); Blood Urea Nitrogen 11 mg/dL (9-20); Calcium 9.6 mg/dL (8.4-10.2); Carbon Dioxide 29 mmol/L (22-30); Chloride 100 mmol/L (98-107); Estimated Glomerular Filt Rate > 60; Glucose 101 mg/dL (65-110); Potassium 3.9 mmol/L (3.4-5.0); Sodium 139 mmol/L (137-145); Total Protein 7.8 g/dL (6.3-8.2)
== END 2024-10-13 11:12 | disposition home or self-care (01) ==
PROVIDERS: PCP Family Medicine; Visit Provider Family Medicine
DX: R06.02 Shortness of breath (principal); R42 Dizziness and giddiness; E78.5 Hyperlipidemia, unspecified
CPT/HCPCS: 36415; 71046; 80053; 85025

== ENCOUNTER 2024-12-17 08:28 | Outpatient (CLI) | payer MEDICARE, MEDICAID, SELFPAY ==
--- NOTE | ~2024-12-17 | NM_ITS ---
EXAMINATION: NM hill stress w perfusion DATE: 12/17/2024 11:56 INDICATION: Shortness of breath. TECHNIQUE: Rest images were obtained following intravenous administration of 10 mCi Tc99m tetrofosmin (Myoview). The patient was infused intravenously with Lexiscan (regadenoson). Then, 31.2 mCi Tc99m tetrofosmin (Myoview) was administered intravenously, and stress images were obtained. Data was recons tructed into short axis and horizontal and vertical long axis SPECT images. Gated SPECT images were also obtained. COMPARISON: None. FINDINGS: There is no definite reversible or fixed perfusion abnormality to suggest ischemia or infarction. There is no segmental wall motion abnormality. Left ventricular ejection fraction measures >70%. IMPRESSION: 1. No definite ischemia or infarct. 2. Normal left ventricular ejection fraction measuring > 70%. Reviewed, dictated and finalized at location E.
--- NOTE | 2024-12-17 08:47 | ECHO_ITS ---
Patient Info Name: Davion Valdez Age: 74 years : 1950 Gender: Male Ht: 67 in Wt: 107 lbs BSA: 1.50 m2 HR: 72 bpm BP: 145 / 93 mmHg Technical Quality: Good Exam Date: 12/17/2024 8:58 AM Patient Status: O Admit Date: 12/17/2024 Exam Type: CA echo doppler color flow Complete two-dimensional, color flow and Doppler transthoracic echocardiogram is performed. Staff Referring Physician: Cb Malcolm Impregnator Operator: Davion Ernst III Attending Provider: Cb Malcolm Summary 1. Complete two-dimensional, color flow and Doppler transthoracic echocardiogram is performed. 2. Left ventricular chamber dimension is normal. 3. Left ventricular systolic function is normal, estimated at 60-65. 4. The left ventricular diastolic function is abnormal. 5. E/e' 12 is mildly elevated. 6. There is mild aortic valve sclerosis. 7. There is trace aortic valve regurgitation. 8. There is trace mitral valve regurgitation. 9. There is trace tricuspid valve regurgitation. 10. The aortic root size at the sinus of Valsalva is borderline dilated at 4.0 cm. Left Ventricle E/e' 12 is mildly elevated. Left ventricular chamber dimension is normal. Left ventricular systolic function is normal, estimated at 60-65. The left ventricular diastolic function is abnormal. Right Ventricle Right ventricular chamber dimension is normal. Right ventricular systolic function is normal. Left Atria Left atrial chamber dimension is normal. Right Atria Right atrial chamber dimension is normal. Aortic Valve The aortic valve is trileaflet. There is mild aortic valve sclerosis. There is no aortic valve stenosis. There is trace aortic valve regurgitation. Pulmonic Valve There is no pulmonic regurgitation. Mitral Valve There is no mitral valve stenosis. There is trace mitral valve regurgitation. Tricuspid Valve There is trace tricuspid valve regurgitation. RVSP is not measured due to an inadequate TR jet. Pericardium/Pleural There is no pericardial effusion. Inferior Vena Cava Normal inferior vena cava with >50% collapse upon inspiration consistent with normal right atrial pressure, 5 mmHg. Aorta The aortic root size at the sinus of Valsalva is borderline dilated at 4.0 cm. Left Ventricular Outflow Tract Name Value Normal LVOT 2D LVOT Diameter 2.3 cm LVOT Doppler LVOT Peak Velocity 95 cm/s LVOT Peak Gradient 4 mmHg LVOT Mean Gradient 1 mmHg LVOT VTI 20 cm LVOT VTI/AV VTI Ratio 0.9 LVOT Stroke Volume 82 ml Pulmonic Valve Name Value Normal PV Doppler PV Peak Velocity 101 cm/s PV Peak Gradient 4 mmHg PV Mean Gradient 2 mmHg Mitral Valve Name Value Normal MV Doppler MV Peak Gradient 4 mmHg MV Mean Gradient 2 mmHg MV Area (Cont Eq VTI) 3.0 cm2 MV Diastolic Function MV E Peak Velocity 89 cm/s MV A Peak Velocity 87 cm/s MV E/A 1.0 MV Decel Time (PW) 183 ms MV Annular TDI MV E/e' (Septal) 14.3 MV E/e' (Lateral) 11.8 MV E/e' (Average) 13.0 Tricuspid Valve Name Value Normal Estimated PAP/RSVP RA Pressure 5 mmHg <=5 TV Annular TDI TV Lateral Dianna s' Velocity 11.7 cm/s >=9.5 Aortic Valve Name Value Normal AV Doppler AV Peak Velocity 101 cm/s AV Peak Gradient 4 mmHg AV Mean Gradient 2 mmHg AV VTI 21 cm AV Area (Cont Eq VTI) 3.8 cm2 >=3.0 AV Area (Cont Eq Sachin) 4.0 cm2 AV DI (Sachin) 0.94 AV Regurgitation 2D LVOT Area 4.2 cm2 Ventricles Name Value Normal LV Dimensions 2D/MM IVS Diastolic Thickness (2D) 0.7 cm 0.6-1.0 LVID Diastole (2D) 4.1 cm 4.2-5.8 LVIW Diastolic Thickness (2D) 0.7 cm 0.6-1.0 LVID Systole (2D) 3.0 cm 2.5-4.0 LVOT Diameter 2.3 cm LV Mass (2D Cubed) 77.29 g 88.00-224.00 LV Mass Index (2D Cubed) 52 g/m2 49-115 Relative Wall Thickness (2D) 0.33 <=0.42 LV Fractional Shortening/Ejection Fraction 2D/MM LV Fractional Shortening (2D) 25 % 25-43 LV EF (2D Teichholz) 50 % LV Diastolic Volume (4C MOD) 40 ml LV EF (4C MOD) 59 % LV Diastolic Volume (2C MOD) 40 ml LV EF (2C MOD) 59 % LV Diastolic Volume (BP MOD) 41 ml 62-150 LV Diastolic Volume Index (BP MOD) 28 ml/m2 34-74 LV Systolic Volume (BP MOD) 17 ml 21-61 LV Systolic Volume Index (BP MOD) 11 ml/m2 11-31 LV EF (BP MOD) 59 % 52-72 LV Diastolic Length (4C) 6.1 cm LV Systolic Length (4C) 5.1 cm LV Stroke Volume (4C MOD) 24 ml Atria Name Value Normal LA Dimensions LA Volume (4C A-L) 30 ml LA Volume (BP A-L) 24 ml RA Dimensions RA Systolic Major Marion Length (4C) 4.0 cm 2.1-2.7 RA Area (4C) 10.4 cm2 <=18.0 Report Signatures
--- NOTE | 2024-12-17 08:49 | EST_ITS ---
Patient Info Name: Davion Valdez Age: 74 years : 1950 Gender: Male Ht: 66 in Wt: 107 lbs BSA: 1.49 m2 HR: 67 bpm BP: 134 / 87 mmHg Exam Date: 12/17/2024 8:49 AM Patient Status: O Admit Date: 12/17/2024 Exam Type: CA stress hill w NM A regadenoson stress test was performed. Staff Referring Physician: Cb Malcolm Attending Provider: Cb Malcolm Exercise Technologist: Penelope Fitzpatrick Exercise Physician: Sanjeev Benavides DO Summary 1. 1. Negative lexiscan stress test for ischemic ST changes by ECG criteria. 2. 2. Stable hemodynamics throughout the test. 3. 3. Nuclear scan to follow and will be reported separately. Please correlate with it. 4. 4. Patient informed of the above results. Protocol: Lexiscan Stress ECG Details Stage: REST Duration (min): 1 min : 32 sec HR (bpm): 67 SBP (mmHg): 134 DBP (mmHg): 87 Stage: REST Duration (min): 5 min : 33 sec HR (bpm): 72 SBP (mmHg): 134 DBP (mmHg): 87 Stage: STAGE 1 Duration (min): 1 min : 0 sec HR (bpm): 105 SBP (mmHg): 161 DBP (mmHg): 80 Stage: RECOVERY Duration (min): 1 min : 0 sec HR (bpm): 112 SBP (mmHg): 161 DBP (mmHg): 80 Stage: RECOVERY Duration (min): 2 min : 0 sec HR (bpm): 107 SBP (mmHg): 161 DBP (mmHg): 80 Stage: RECOVERY Duration (min): 3 min : 0 sec HR (bpm): 104 SBP (mmHg): 140 DBP (mmHg): 80 Stage: RECOVERY Duration (min): 4 min : 0 sec HR (bpm): 102 SBP (mmHg): 140 DBP (mmHg): 80 Stage: RECOVERY Duration (min): 5 min : 0 sec HR (bpm): 98 SBP (mmHg): 139 DBP (mmHg): 79 Stage: RECOVERY Duration (min): 5 min : 8 sec HR (bpm): 98 SBP (mmHg): 139 DBP (mmHg): 79 Rest HR: 72 bpm Peak HR: 112 bpm Rest Sys BP: 134 mmHg Peak Sys BP: 161 mmHg Max Pred HR: 147 bpm % Max Pred HR: 76 % Target HR: 125 bpm Max RPP: 18,032 bpm*mmHg Termination Reason: Completed protocol Cardiac Symptoms: Shortness of breath Total Time: 1 min : 0 sec Rest Carrizales BP: 87 mmHg Peak Carrizales BP: 80 mmHg Total Dose: 0.4 mg Resting ECG Sinus rhythm. Stress ECG No ST changes. Arrhythmias None. Report Signatures
== END 2024-12-17 08:29 | disposition home or self-care (01) ==
LOC: ANHCARD 08:29
PROVIDERS: PCP Family Medicine; Visit Provider Family Medicine
DX: I10 Essential (primary) hypertension (principal); R06.02 Shortness of breath; R42 Dizziness and giddiness
CPT/HCPCS: 78452; 93017; 93306; A9502; J2785

== ENCOUNTER 2025-02-13 08:10 | Outpatient (CLI) | payer MEDICARE, MEDICAID, SELFPAY ==
--- NOTE | ~2025-02-13 | MR_ITS ---
EXAMINATION: MR brain/brain stem wo con DATE: 02/13/2025 09:48 INDICATION: Stroke. TECHNIQUE: Magnetic resonance imaging (MRI) of the brain and brainstem was performed without intravenous contrast. COMPARISON: Brain MRI 11/25/2013 FINDINGS: There are old blood products in the basal ganglia bilaterally. There is an old microhemorrhage in right occipital lobe. There is chronic encephalomalacia involving the right basal ganglia, left basal ganglia, left internal capsule, and left thalamus. There are scattered areas of nonspecific i ncreased T2-weighted signal intensity in the cerebral white matter and kapil. There is no acute ischemic infarct or abnormal mass lesion. There is ex vacuo dilatation of body of left lateral ventricle. There is mucosal thickening in the paranasal sinuses. The orbits are normal. The mastoid air cells are normal. IMPRESSION: 1. Chronic encephalomalacia involving the bilateral basal ganglia, left internal capsule, and left thalamus with old blood products. 2. Moderate nonspecific cerebral white matter disease and pontine disease, which likely represents chronic small vessel ischemic disease. Reviewed, dictated and finalized at location E. ECTIONAL SUPERVISOR LIEUTENANT IMPRESSION: 1. Chronic encephalomalacia involving the bilateral basal ganglia, left interna l capsule, and left thalamus with old blood products. 2. Moderate nonspecific cerebral white matter disease and pontine disease, whic h likely represents chronic small vessel ischemic disease.
== END 2025-02-13 08:11 | disposition home or self-care (01) ==
PROVIDERS: PCP Family Medicine; Visit Provider Family Medicine
DX: R42 Dizziness and giddiness (principal); Z86.73 Personal history of transient ischemic attack (TIA), and cerebral infarction without residual deficits
CPT/HCPCS: 70551

== ENCOUNTER 2025-02-25 08:38 | Inpatient (IN) | payer MEDICARE, MEDICAID, SELFPAY ==
[2025-02-25] VITALS (16 sets, daily range): BP systolic 123–150; BP diastolic 71–96; PULSE 98–125; RESP 20–27; TEMP 36.3–36.4; O2SAT 94–100; BMI 18.6
--- NOTE | ~2025-02-25 | MR_ITS ---
EXAMINATION: MR brain/brain stem wo con DATE: 03/07/2025 16:01 INDICATION: 74-year-old male with confusion. TECHNIQUE: Magnetic resonance imaging (MRI) of the brain and brainstem was performed without intravenous contrast. Diffusion sequence, T2*gradient sequence, FLAIR sequence, T1 and T2 sequences were obtained. COMPARISON: CT brain without contrast dated 03/06/2025 FINDINGS: Some of the sequences are significantly compromised by motion artifacts. No evidence of acute ischemia on the diffusion sequence. Severely compromised T2*gradient echo sequence shows no gross intracranial bleed. Extensive chronic ischemic change of periventricular white matter is noted including large old lacunar infarct of the left basal ganglia region. No ventriculomegaly or midline shift. IMPRESSION: 1. Significantly compromised examination due to motion artifact on multiple sequences. 2. No evidence of acute ischemia on diffusion sequence. Presence of significant chronic ischemic changes as described above. Reviewed, dictated and finalized at location T. CTOR OF DESIGN IMPRESSION: 1. Significantly compromised examination due to motion artifact on multiple seq uences. 2. No evidence of acute ischemia on diffusion sequence. Presence of significant chronic ischemic changes as described above.
--- NOTE | ~2025-02-25 | XR_ITS ---
MODIFIED ESOPHAGRAM HISTORY: Dysphagia. TECHNIQUE: Modified barium esophagram was performed on 03/09/2025. I administered fluoroscopy and performed the exam with speech pathologist. Patient was seated for lateral fluoroscopic imaging for ingestion of thin liquids, pudding, solids and quantified amounts, followed by thin liquids in uncontrolled amounts. This was recorded on tape. A single fluoroscopic spot image was also recorded. The DAP for this procedure was 0.891 Gycm2. The amount of fluoroscopy time used during this procedure was 1.6 minutes. FINDINGS: Oral stage: Adequate function. Pharyngeal stage: Mild vallecular residue with thin liquids. No laryngeal penetration or aspiration. Cervical/esophageal stage: Adequate function. IMPRESSION: Patient tolerated regular consistency oral feedings in the upright position. Please correlate with speech pathologist findings and specific feeding recommendations. Reviewed, dictated and finalized at location A. BENCH OPERATOR IMPRESSION: Patient tolerated regular consistency oral feedings in the upright position. Please correlate with speech pathologist findings and specific feedi ng recommendations.
--- NOTE | ~2025-02-25 | XR_ITS ---
EXAMINATION: XR chest 1V portable DATE: 02/25/2025 10:32 INDICATION: Wheezing TECHNIQUE: A single frontal view of the chest was obtained. COMPARISON: October 13, 2024 FINDINGS: Patchy parenchymal changes overlying the left heart border may represent small area of aspiration or consolidation. Heart and hilar shadows appear stable. The remaining lung villanueva are clear. No pneumothorax or subphrenic free air seen. IMPRESSION: 1. Possible small developing consolidation along the left heart border. Reviewed, dictated and finalized at location A. ARCHITECT
--- NOTE | ~2025-02-25 | XR_ITS ---
XR abdomen gastric tube insert INDICATION: Evaluate NG tube position. TECHNIQUE: Limited KUB perform for evaluating NG tube . COMPARISON: No prior studies for comparison. FINDINGS: NG tube tip in the stomach. Visualized bowel gas pattern is unremarkable. IMPRESSION: 1: NG tube tip in the stomach. Reviewed, dictated and finalized at location O. UE TILE BURNER
--- NOTE | ~2025-02-25 | XR_ITS ---
XR chest 1V portable 03/08/2025 09:34 Indication: AP portable chest Procedure: AP portable chest Comparison: Comparison to multiple prior studies sequentially, with oldest reviewed study dated 12/25/2012. Findings: Mild interstitial infiltrates bilaterally unchanged from prior study. Heart size normal. No focal pneumonia, edema, significant effusion or pneumothorax. No acute osseous abnormality. There is atherosclerosis of the aorta. Impression: 1: Mild interstitial infiltrates bilaterally, likely chronic. Mild edema not excluded. Reviewed, dictated and finalized at location O. AD LASTER Impression: 1: Mild interstitial infiltrates bilaterally, likely chronic. Mild edema not ex cluded.
--- NOTE | ~2025-02-25 | XR_ITS ---
EXAMINATION: XR abdomen gastric tube insert DATE: 03/06/2025 01:46 INDICATION: Nasogastric tube placement TECHNIQUE: A supine view of the abdomen and lower chest was obtained for evaluation of feeding tube placement. COMPARISON: 03/05/2025 FINDINGS: Again seen is a nasogastric tube with distal tip near the gastric pylorus and proximal side port in the body the stomach. There is some oral contrast material in the colon. Visualized portion of the mid to lower lungs are clear. Heart size is normal. IMPRESSION: 1. Nasogastric tube in stomach. Reviewed, dictated and finalized at location A. EKEEPER HEAD
--- NOTE | ~2025-02-25 | US_ITS ---
EXAMINATION: US venous doppler UE RT DATE: 03/09/2025 16:21 INDICATION: Right upper limb swelling. TECHNIQUE: Grayscale ultrasound images without and with compression and Doppler ultrasound images of the right upper extremity veins were obtained. COMPARISON: None. FINDINGS: The visualized portions of the right internal jugular vein, subclavian vein, axillary vein, brachial veins, basilic vein, radial vein, and ulnar vein are patent. The cephalic vein is not well evaluated. IMPRESSION: 1. No deep venous thrombosis. Reviewed, dictated and finalized at location E. UNE COOKIE MAKER
--- NOTE | ~2025-02-25 | XR_ITS ---
XR abdomen gastric tube insert INDICATION: Evaluate NG tube position. TECHNIQUE: Limited KUB perform for evaluating NG tube . COMPARISON: 03/05/2025 FINDINGS: NG tube tip in the proximal duodenum. Visualized bowel gas pattern is unremarkable. IMPRESSION: 1: NG tube tip in the proximal duodenum. Reviewed, dictated and finalized at location O. ORATE TRAVEL COORDINATOR
--- NOTE | ~2025-02-25 | CT_ITS ---
EXAMINATION: CT brain wo con DATE: 03/06/2025 14:15 INDICATION: Confusion. Altered mental status. TECHNIQUE: Computed tomography (CT) of the head was performed without intravenous contrast. The mA was adjusted according to patient size. Iterative reconstruction technique was employed. The dose-length product was 681.00 mGy-cm. COMPARISON: MRI brain dated 02/13/2025. FINDINGS: No acute intracranial bleed. No evidence of extra-axial collections. Significant chronic ischemic changes are noted with old lacunar infarct of the basal ganglia on the left side. No ventriculomegaly or midline shift. No acute findings of the posterior fossa. No acute bone changes. Sinusitis of ethmoid, maxillary and frontal sinuses. IMPRESSION: 1. No acute intracranial findings. Significant chronic ischemic changes particularly involving basal ganglia on the left side with internal capsule with presence of old lacunar infarct. 2. Sinusitis as described above. Reviewed, dictated and finalized at location T. ET PRINTING PRESSMEN IMPRESSION: 1. No acute intracranial findings. Significant chronic ischemic changes particu larly involving basal ganglia on the left side with internal capsule with prese nce of old lacunar infarct. 2. Sinusitis as described above.
--- NOTE | ~2025-02-25 | XR_ITS ---
EXAMINATION: XR fl Dobhoff insert/rad w img DATE: 03/05/2025 14:23 INDICATION: Enteric feeding tube placement required for tube feeding TECHNIQUE: A Dobbhoff type feeding tube was advanced into the duodenum utilizing intermittent fluoroscopy. Final image demonstrates the feeding tube extending into the fourth portion of the duodenum with the weighted tip atypically curving towards the right. 5 mm of water-soluble contrast was injected into the tube to confirm position within the small bowel. The tube was subsequently flushed with 10 mL sterile saline and fixed to the nares with adhesive tape. 3 fluoroscopic images were recorded. The amount of fluoroscopy time used during this procedure was 1.4 minutes. Total DAP was 2.614 Gycm^2. There were no immediate complications. FINDINGS/IMPRESSION: Successful fluoroscopy-guided Dobbhoff feeding tube placement with distal tip in the fourth portion of the duodenum. Of note the jejunum appears to extend into the right upper quadrant which suggests an intestinal malrotation. Reviewed, dictated and finalized at location A. FILL GAS PLANT FIELD TECHNICIAN
--- NOTE | 2025-02-25 08:52 | ECG_ITS ---
Test Date: 2025-02-25 09:12:33 Measurements Intervals [place] Rate: 103 P: 59 NH: 133 QRS: -57 QRSD: 75 T: 80 QT: 335 QTc: 439 Interpretive Statements SINUS TACHYCARDIA POSSIBLE RIGHT VENTRICULAR CONDUCTION DELAY LEFT ANTERIOR FASCICULAR BLOCK BASELINE ARTIFACT- I, II, III, AVR, AVL, AVF, V1-V6 ABNORMAL ECG No previous ECG available for comparison Electronically Signed On 02-25-2025 11:31:31 COMPLIANCE ASSISTANT by Sanjeev Benavides D.O.
[2025-02-25] MEDS: IPRATROPIUM BR 0.02% INH SOLN 0.5 MG/2.5 ML VIAL 1 MG INHALATION (09:14)
[2025-02-25] MEDS: ALBUTEROL SULFATE NEB 2.5 MG/3 ML INH 10 MG INHALATION (09:15)
[2025-02-25 09:21] LABS: Fractional Inspired Oxygen 28 %; HCO3 VBG 28.2 mEq/l (24.0-30.0); PCO2 VBG 57.0 mmHg (42.0-48.0); pH VBG 7.313 (7.300-7.400)
[2025-02-25 09:22] LABS: Liters per Minute 2.0 LPM; PO2 VBG < 27.0 mmHg (35.0-45.0)
[2025-02-25 09:30] LABS: Alanine Aminotransferase 23 U/L (6-50); Albumin Level 4.2 g/dL (3.5-5.1); Alkaline Phosphatase 46 U/L (38-126); Anion Gap 8 mmol/L (4-12); Aspartate Amino Transferase 34 U/L (17-59); Bilirubin,Total 0.8 mg/dL (0.2-1.3); Blood Urea Nitrogen 14 mg/dL (9-20); Calcium 9.3 mg/dL (8.4-10.2); Carbon Dioxide 24 mmol/L (22-30); Chloride 107 mmol/L (98-107); Estimated CRCL calculation 50 ml/min; Estimated Glomerular Filt Rate > 60; Glucose 119 mg/dL (65-110); Magnesium 1.8 mg/dL (1.6-2.3); Potassium 4.2 mmol/L (3.4-5.0); Sodium 139 mmol/L (137-145); Total Protein 7.8 g/dL (6.3-8.2)
[2025-02-25] MEDS: SODIUM CHLORIDE 0.9% IV 1,000 ML 999 ML IV CONT (09:40)
[2025-02-25] MEDS: MAGNESIUM SULF 2 GM/WATER 50ML 2 GM/50 ML BAG IVPB (09:40)
[2025-02-25 10:25] LABS: Hematocrit 43.9 % (42.0-52.0); Hemoglobin 14.1 g/dL (14.0-18.0); Immature Granulocyte Percent A 0.6 % (0-0.5); Lymphocytes Absolute Auto 1.36 K/mm3 (0.9-3.2); Mean Corpuscular HGB Conc 32.1 g/dl (32-36); Mean Corpuscular Hemoglobin 30.3 pg (26-34); Mean Corpuscular Volume 94.4 fl (80-100); Nucleated Red Blood Cells Absolute Auto 0.000 K/mm3 (0.0-0.012); Nucleated Red Blood Cells Perc 0.0 % (0.0-0.2); Platelet Count Result 262 k/mm3 (150-375); Red Blood Count 4.65 M/mm3 (4.6-6.20); White Blood Count 12.2 K/mm3 (4.5-10.0)
[2025-02-25 10:33] LABS: NT Pro B Type Natriuretic Pept 55 pg/mL (19.9-100); Troponin I < 0.012 ng/mL (0.000-0.034)
[2025-02-25 10:57] LABS: Influenza A QL RT-PCR Negative (Negative); Influenza B QL RT-PCR Negative (Negative); RSV RNA, RT-PCR Negative (Negative); SARS-CoV-2 RNA PCR Negative (Negative)
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
--- NOTE | 2025-02-25 12:31 | WPCEDHO ---
ED Hand Off Checklist All vitals saved:yes IV Site documented:yes All med administrations documented:yes Triage Note Triage Note PT TO ED VIA [facility] 02/25/25 08:39 FROM HOME FOR EVAL OF LOW O2 SATS NOTED BY EMS. PT AND GIRLFRIEND HAD REPORTEDLY HAD APPROX 3 DAYS OF ARGUING AND THE GIRLFRIEND CALLED 911 FOR STROKE LIKE [facility] REPORTS 0 ON THE STROKE SCALE. SATS 88% ON ROOM AIR PLACED ON 4L AND GIVEN DUONEB FOR WHEEZING IN R LUNG WHICH RESULTED IN SATS INCREASING. Allergies Penicillins Allergy (Unknown, Verified 02/23/25 08:58) THROAT SWELLING Family History (Last Reviewed 02/23/25 @ 08:57 by Kia Marsh [facility]) Sibling Cerebrovascular accident Hypertension Father Hypertension Other Family history of allergic disorder Family history of chronic obstructive pulmonary disease Administered/Completed Medications Discontinued Medications Albuterol (Albuterol Sulfate Neb 2.5 Mg/3 Ml Inh) 10 mg INHALATION ONCE STA Stop: 02/25/25 08:54 Last Admin: 02/25/25 09:15 Dose: 10 mg Documented By: PREETHI Sodium Chloride (Normal Saline Iv) 1,000 mls @ 999 mls/hr IV CONT .Q1H1M STA Stop: 02/25/25 09:52 Last Infusion: 02/25/25 11:46 Dose: Infused Documented By: Admin: 02/25/25 09:40 Dose: 999 mls/hr Documented By: AREN Magnesium Sulfate (Magnesium Sulf 2 Gm/Water 50ml) 2 gm in 50 mls @ 50 mls/hr IVPB ONCE STA Stop: 02/25/25 09:51 Last Infusion: 02/25/25 11:46 Dose: Infused Documented By: Admin: 02/25/25 09:40 Dose: 50 mls/hr Documented By: AREN Co-signed By: ABBI Ipratropium [place] (Ipratropium Br 0.02% Inh Soln 0.5 Mg/2.5 Ml Vial) 1 mg INHALATION ONCE ONE Stop: 02/25/25 08:54 Last Admin: 02/25/25 09:14 Dose: 1 mg Documented By: PREETHI Prednisone (Prednisone 20 Mg Tablet) 60 mg PO ONCE STA Stop: 02/25/25 08:53 Last Admin: 02/25/25 09:40 Dose: 60 mg Documented By: CFG Interventions/Assessments IV / Saline Lock, Insert Start: 02/25/25 08:29 Freq: Status: Active Protocol: Document 02/25/25 09:06 KED (Rec: 02/25/25 09:06 KED [id number]) IV Assessment Peripheral Access Left Antecubital IV Catheter Access Initiated IV Insertion Date 02/25/25 IV Insertion Time 09:06 Catheter Gauge 20 IV Insertion 1 Attempts Ultrasound Used for No Placement IV Site Assessment WNL IV Care and WNL Maintenance PA: Cardiovascular Assessment Start: 02/25/25 08:29 Freq: Status: Complete Protocol: Document 02/25/25 08:45 CFG (Rec: 02/25/25 09:26 CFG [id number]) Cardiovascular Assessment Cardiovascular Dyspnea Symptoms Skin Description Normal Color Heart Sounds Normal Jugular Vein None Distention Chest Pain Assessment Chest Pain Intensity 0 PA: Respiratory Assessment Start: 02/25/25 08:29 Freq: Status: Complete Protocol: Document 02/25/25 08:45 CFG (Rec: 02/25/25 09:26 CFG [id number]) Respiratory Assessment Symptoms Shortness of Breath at Rest,Shortness of Breath With Exertion Effort Short of Breath Pattern Regular Depth Normal Chest Expansion Symmetrical Anterior Bilateral Throughout Phase Inspiratory & Expiratory Lung Sounds Coarse Cough Description Loose Cough Frequency Intermittent Oxygen Delivery Oxygen Delivery Nasal Cannula Oxygen Flow Rate 4 Pulse Oximetry (90- 100 100) Last Vital Signs Temperature 97.5 F L 02/25/25 08:39 Pulse Rate 113 H 02/25/25 11:45 Respiratory Rate 24 H 02/25/25 11:45 Pulse Oximetry 98 02/25/25 11:45 Blood Pressure 123/71 02/25/25 11:45 Blood Pressure Mean 88 02/25/25 11:45 Blood Pressure Position Sitting 02/25/25 08:39 Oxygen Delivery Nasal Cannula 02/25/25 11:00 Oxygen Flow Rate 2 02/25/25 11:00 Weight 52.5 kg 02/25/25 08:39 Last Result - Abnormals Only WBC 12.2 K/mm3 (4.5-10.0) H 02/25/25 09:43 Immature Gran % (Auto) 0.6 % (0-0.5) H 02/25/25 09:43 Neut % (Auto) 78.0 % (45.5-73.1) H 02/25/25 09:43 Lymph % (Auto) 11.1 % (18.3-44.2) L 02/25/25 09:43 [place] # (Auto) 0.8 K/mm3 (0.1-0.6) H 02/25/25 09:43 Eos # (Auto) 0.4 K/mm3 (0-0.3) H 02/25/25 09:43 Abs Immat Gran (auto) 0.07 K/mm3 (0.00-0.031) H 02/25/25 09:43 Absolute Neuts (auto) 9.5 K/mm3 (1.3-6.7) H 02/25/25 09:43 VBG pCO2 57.0 mmHg (42.0-48.0) H 02/25/25 09:10 VBG pO2 < 27.0 mmHg (35.0-45.0) L 02/25/25 09:10 Glucose 119 mg/dL (65-110) H 02/25/25 09:06 Most Recent Suicide Severity Rating Suicide Severity Rating NO RISK INDICATED 02/25/25 08:39
--- NOTE | 2025-02-25 15:10 | P.HP_ITS ---
H&P: HPI History of Present Illness Date/Time: 02/25/25 15:10 Chief Complaint: Shortness of breath Narrative: 74-year-old male with a past medical history of Encephalomalacia, HTN, HLD, thoracic aortic aneurysm, CVA, COPD, alcohol abuse presents to the ED on 02/25/2025 with complaints of increased dyspnea. It appears that police were called by the patient's girlfriend after they had been fighting for a couple of days. It was noted the patient was dyspneic so EMS was called. According to the patient, the patient's girlfriend of over 20 years was mad at him for drinking alcohol today and kicked him out. Chart review reveals this has happened in the past. Patient does have a history of COPD and daily alcohol use. He states he has dyspnea on exertion at baseline. No supplemental home O2. Patient was found to be 88% on room air for EMS. He was placed on 4 L O2 per nasal cannula and given a DuoNeb for wheezing. Wheezing and hypoxia improved. Patient endorses intermittent cough with no sputum. Denies any fevers, chest pain, dizziness, abdominal pain. Patient denies history of alcohol withdrawal. Recent documentation notes that patient does not take his Breztri as prescribed and has only been using it as needed. Patient recently complaining of dizziness and shortness of breath. PCP ordered workup: ECHO on 12/17/24 showed EF 60-65%, mild aortic valve sclerosis, trace AR, MR, TR, aortic root size at 4cm. MRI brain/brainstem reads Chronic encephalomalacia involving the bilateral basal ganglia, left internal capsule, and left thalamus with old blood products. Moderate nonspecific cerebral white matter disease and pontine disease, which likely represents chronic small vessel ischemic disease. Initial vital signs 150/85, HR 100, respirations 20, afebrile and 100% on 4 L O2. Slight leukocytosis with WBC 12.2. VBG with pH 7.313, pCO2 57.0, PO2 less than 27, HC03 28.2. Troponin negative. Viral swab negative. EKG reads sinus tach with possible right ventricular conduction delay. Chest x-ray read possible small developing consolidation along the left heart border. Review of Systems Review of Systems: All systems reviewed & are unremarkable except as noted in HPI and below [facility] Past Medical History Medical History (Updated 02/25/25 @ 12:02 by Krystal High MD) Encephalomalacia Ventral hernia without obstruction or gangrene Umbilical hernia without obstruction and without gangrene Hernia, inguinal, left Esophagitis Bilateral recurrent inguinal hernia without obstruction or gangrene Alcohol abuse COPD with asthma Neurofibroma (~2021) History of colon polyps Environmental allergies Prediabetes Pulmonary nodule Thoracic aortic aneurysm 4cm on 2018 ct HTN (hypertension) HLD (hyperlipidemia) Surgical History Surgical History H/O excision of mass Excision 11mm back skin lesion (x2) 10/13/21 - neurofibroma History of excision of mass 12/13/20 History of ventral hernia repair (~07/2016) History of umbilical hernia repair (~07/2016) History of lumbosacral spine surgery 1980s Family History Family History Sibling Cerebrovascular accident Hypertension Father Hypertension Other Family history of allergic disorder Family history of chronic obstructive pulmonary disease Social History Social History Social History: caffeine use: drinks coffee occasionally Smoking packs per day: 2 Smoking cigarettes per day: 40.0 Years smoked: 50 Smoking pack-years: 100.00 Smoking status: Former smoker Second hand tobacco smoke exposure: No Alcohol intake: current Drinks per week: 28 Alcohol use details: drinks beer Substance use: never Substance use type: does not use Lack of Transportation: No Lack of Food: Never True Current Housing: I Have Housing Concerned About Future Housing: No Difficulty Paying Gas/Electric Bills: No Difficulty Paying for Meds: No Currently Unemployed: No Education: Associate Degree Difficulty w/ Childcare or Family Care: No Living arrangements: other Additional living arrangements comments: LIVES WITH SIGNIFICANT OTHER Occupation/Education: other Gender identity (if verbalized by the patient): Male Spiritual care concerns: No Meds Home Medications and Allergies Home Medications ?Medication ?Instructions ?Recorded ?Confirmed ?Type atorvastatin 20 mg tablet 20 mg PO QHS #30 tabs 02/25/25 Rx albuterol sulfate 90 mcg/actuation 2 puff inhalation Q 4H PRN 09/28/24 02/25/25 Rx aerosol inhaler bronchospasm #8.5 grams aspirin 81 mg tablet 81 mg PO DAILY 11/24/24/11/02 History omega-3 fatty acids-vitamin E 1 cap PO QAM AND QHS 02/25/25 History 1,000 mg capsule losartan 25 mg tablet See Rx Instructions .Route 1 02/25/25 Rx .COMPLEX #90 tabs loratadine 10 mg tablet (Claritin) 10 mg PO DAILY #90 tabs 01/05/25 02/25/25 Rx budesonide 160 mcg-glycopyr 9 See Rx Instructions .Rou te 02/23/25 02/25/25 Rx mcg-formot 4.8 mcg/actuation HFA .COMPLEX #11 grams inhaler ([employer]) Allergies Allergy/AdvReac Type Severity Reaction Status Date / Time Penicillins Allergy Unknown THROAT Verified 02/25/25 14:11 SWELLING Vital Signs Vital Signs - 24 hr 02/25/25 08:39 02/25/25 08:40 02/25/25 08:45 Temperature 97.5 F L Pulse Rate 100 Respiratory Rate 20 Blood Pressure 150/85 H Pulse Oximetry 100 100 100 Oxygen Delivery Room Air High Flow Therapy with Na Nasal Cannula Oxygen Flow Rate 4 4 02/25/25 09:18 02/25/25 09:48 02/25/25 09:53 Temperature Pulse Rate 98 116 H 114 H Respiratory Rate 27 H 21 H 27 H Blood Pressure 145/83 H 145/83 H 145/83 H Pulse Oximetry 100 100 Oxygen Delivery Oxygen Flow Rate 02/25/25 10:01 02/25/25 10:15 02/25/25 11:00 Temperature Pulse Rate 125 H 124 H Respiratory Rate 21 H 27 H Blood Pressure 134/81 Pulse Oximetry 100 100 100 Oxygen Delivery Nasal Cannula Oxygen Flow Rate 2 02/25/25 11:00 02/25/25 11:15 02/25/25 11:45 Temperature Pulse Rate 114 H 115 H 113 H Respiratory Rate 26 H 24 H 24 H Blood Pressure 131/74 123/71 Pulse Oximetry 100 99 98 Oxygen Delivery Oxygen Flow Rate 02/25/25 14:00 02/25/25 14:58 Temperature 97.4 F L Pulse Rate 114 H Respiratory Rate 22 H Blood Pressure 126/96 H Pulse Oximetry 100 94 Oxygen Delivery Room Air Oxygen Flow Rate Exam Narrative: GENERAL: non-toxic appearing, in no acute distress. HEAD: Normocephalic, atraumatic. EYES: PERRLA. Conjunctivae clear. NOSE: Normal no drainage. THROAT: Pharynx clear, no exudate. NECK: ?Trachea midline. No adenopathy, no masses. RESPIRATORY: Airway patent. Some retractions in the neck. Currently on room air at 98%. Expiratory wheezes heard throughout. CARDIOVASCULAR: Regular rate and rhythm GASTROINTESTINAL: ?Abdomen is soft and nontender. ?No organomegaly. ?Bowel sounds normal in all quadrants. Ventral hernia GENITOURINARY: ?Defer MUSCULOSKELETAL: Moves all extremities. No gross deformities. SKIN: Warm, dry, normal color. NEURO: A&O X4. Speech clear PSYCHIATRIC: Normal interaction Results Labs Labs: Short CBC 02/25/25 Range/Units 09:43 WBC 12.2 H (4.5-10.0) K/mm3 Hgb 14.1 (14.0-18.0) g/dL Hct 43.9 (42.0-52.0) % Plt Count 262 (150-375) k/mm3 [facility] 02/25/25 09:06 Sodium 139 Potassium 4.2 Chloride 107 Carbon Dioxide 24 BUN 14 Creatinine 0.85 Glucose 119 H Calcium 9.3 Cardiac Enzymes 02/25/25 Range/Units 09:06 Troponin I < 0.012 (0.000-0.034) ng/mL Liver Function 02/25/25 Range/Units 09:06 Total Bilirubin 0.8 (0.2-1.3) mg/dL AST 34 (17-59) U/L ALT 23 (6-50) U/L Alkaline Phosphatase 46 (38-126) U/L Albumin 4.2 (3.5-5.1) g/dL Quality VTE Prophylaxis VTE prophylaxis: pharmacologic ordered Assessment and Plan Assessment and plan (1) Acute exacerbation of chronic obstructive pulmonary disease: Code(s): J44.1 - Chronic obstructive pulmonary disease with (acute) exacerbation Status: Acute Assessment and Plan: Presents with increasing shortness of breath. COPD history. Recent documentation notes that patient does not take his Breztri as prescribed and has only been using it as needed. Patient states he stopped smoking 15 years ago. - DuoNebs Q6H dimitri - Trelegy while inpatient - Methylprednisolone 60 mg q.6 - started on doxycycline (due to penicillin allergy) and azithromycin on 02/25 - Intermittent supplemental O2 (2) Pneumonia: Code(s): J18.9 - Pneumonia, unspecified organism Status: Acute Assessment and Plan: Denies chest pain and fevers but endorses intermittent dry cough. Chest x-ray read possible small developing consolidation along the left heart border. - started on doxycycline (due to penicillin allergy) and azithromycin on 02/25 - Viral PCR negative - supplemental O2 at 2 L in the ED. Currently on room air - Encourage incentive spirometer - Trend CBC (3) Alcohol abuse: Code(s): F10.10 - Alcohol abuse, uncomplicated Status: Acute Assessment and Plan: Patient states he has been drinking since age 14. He drinks on average one 25 oz beer daily, down from 15 daily. Denies history of withdrawals or seizures. Last drink was prior to arrival today. - CIWA protocol in place - Ativan PRN - Librium 25 mg scheduled - seizure precautions - neurochecks Q4H - Care coordination consult as patient states he is ready to quit - Thiamine, multivitamin, folic acid daily (4) HTN (hypertension): Qualifiers: Hypertension type: primary hypertension Qualified Code(s): I10 - Essential (primary) hypertension Code(s): I10 - Essential (primary) hypertension Status: Chronic Assessment and Plan: Continue losartan (5) HLD (hyperlipidemia): Qualifiers: Hyperlipidemia type: unspecified Qualified Code(s): E78.5 - Hyperlipidemia, unspecified Code(s): E78.5 - Hyperlipidemia, unspecified Status: Chronic Assessment and Plan: Continue atorvastatin Prior Studies I have reviewed the following patient records and this information was taken into consideration when formulating the assessment and plan.: previous labs, previous ER visits, previous hospitalizations and previous clinic visits Time Spent with Patient Time with patient: 45 - 74 minutes Hospitalist MIPS Advance Care Plan I have confirmed that the patient's Advanced Care Plan is present, code status is documented, or surrogate decision maker is listed in patient medical record.: Yes Medication Reconciliation I have utilized all available resources to obtain, update and review the p atients current medications (includes all prescriptions, OTC, herbals, cannabis, and nutritional supplements).: Yes
[2025-02-25] MEDS: LACTATED RINGERS 1,000 ML 999 ML IV CONT (15:52)
[2025-02-25] MEDS: AZITHROMYCIN 500 MG TABLET PO (15:53)
[2025-02-25] MEDS: DOXYCYCLINE IV 100 MG in SODIUM CHLORIDE 0.9% IV 100 ML IVPB (15:53)
[2025-02-25] MEDS: CALCIUM CARBONATE (TUMS) 500 MG (200 MG ELEMENTAL) PO ×2 (16:57→23:14)
[2025-02-25] MEDS: OMEGA 3 POLYUNSAT FATTY ACIDS 1 GM CAP PO (21:39)
[2025-02-25] MEDS: ATORVASTATIN 20 MG TABLET PO (21:39)
[2025-02-25] MEDS: chlordiazePOXIDE (*CRX) 25 MG CAPSULE PO (23:14)
[2025-02-26] VITALS (13 sets, daily range): BP systolic 127–140; BP diastolic 64–83; PULSE 70–113; RESP 16–20; TEMP 36.3–36.4; O2SAT 98–99
[2025-02-26] MEDS: DOXYCYCLINE IV 100 MG in SODIUM CHLORIDE 0.9% IV 100 ML IVPB ×2 (03:16→15:57)
--- NOTE | 2025-02-26 03:47 | PCRCNOTE ---
Patient refused 0200 updraft treatment. Pt agreed to take treatment at 0800.
[2025-02-26] MEDS: chlordiazePOXIDE (*CRX) 25 MG CAPSULE PO ×3 (05:58→17:21)
[2025-02-26 06:15] LABS: Hematocrit 40.6 % (42.0-52.0); Hemoglobin 13.3 g/dL (14.0-18.0); Immature Granulocyte Percent A 0.5 % (0-0.5); Lymphocytes Absolute Auto 0.58 K/mm3 (0.9-3.2); Mean Corpuscular HGB Conc 32.8 g/dl (32-36); Mean Corpuscular Hemoglobin 30.4 pg (26-34); Mean Corpuscular Volume 92.9 fl (80-100); Nucleated Red Blood Cells Absolute Auto 0.000 K/mm3 (0.0-0.012); Nucleated Red Blood Cells Perc 0.0 % (0.0-0.2); Platelet Count Result 281 k/mm3 (150-375); Red Blood Count 4.37 M/mm3 (4.6-6.20); White Blood Count 14.6 K/mm3 (4.5-10.0)
--- NOTE | 2025-02-26 06:24 | PC.NURSE ---
Patient has been awake all night speaking with his roommate. Patient did make a request for acetaminophen for back pain and something to help with his epigastric discomfort. Spoke with hospitalist, was expecting an order for acetaminophen and a GI cocktail. Coincidentally, this epigastric pain began during the doxycycline infusion. When passing 0600 meds, patient did not mention any kind of pain.
[2025-02-26 06:42] LABS: Anion Gap 9 mmol/L (4-12); Blood Urea Nitrogen 11 mg/dL (9-20); Calcium 9.0 mg/dL (8.4-10.2); Carbon Dioxide 23 mmol/L (22-30); Chloride 104 mmol/L (98-107); Estimated CRCL calculation 66 ml/min; Estimated Glomerular Filt Rate > 60; Glucose 142 mg/dL (65-110); Potassium 4.3 mmol/L (3.4-5.0); Sodium 136 mmol/L (137-145)
--- NOTE | 2025-02-26 07:50 | P.PNIM_ITS ---
Assessment and Plan Assessment and Plan (1) Acute exacerbation of chronic obstructive pulmonary disease: Code(s): J44.1 - Chronic obstructive pulmonary disease with (acute) exacerbation Status: Acute Assessment and Plan: * Hx of COPD - does not take his Breztri as prescribed and has only been using it as needed * Quit smoking 15 years ago * DuoNebs Q6H dimitri * Trelegy while inpatient * Methylprednisolone 60 mg q.6 * started on doxycycline (due to penicillin allergy) and azithromycin on 02/25 * Intermittent supplemental O2 - remains off O2 at this point (2) Pneumonia: Code(s): J18.9 - Pneumonia, unspecified organism Status: Acute Assessment and Plan: * Chest x-ray read possible small developing consolidation along the left heart border. * started on doxycycline (due to penicillin allergy) and azithromycin on 02/25 * Viral PCR negative * supplemental O2 at 2 L in the ED. Currently on room air * Encourage incentive spirometer * Trend CBC (12.2 -> 14.6, although recently started on methylprednisone) (3) Alcohol abuse: Code(s): F10.10 - Alcohol abuse, uncomplicated Status: Acute Assessment and Plan: * Drinks on average one 25 oz beer daily, down from 15 daily. Denies history of withdrawals or seizures. Last drink was prior to arrival today. * CIWA protocol in place * Ativan PRN * Librium 25 mg scheduled * seizure precautions * neurochecks Q4H * Care coordination consult as patient states he is ready to quit * Thiamine, multivitamin, folic acid daily (4) HTN (hypertension): Qualifiers: Hypertension type: primary hypertension Qualified Code(s): I10 - Essential (primary) hypertension Code(s): I10 - Essential (primary) hypertension Status: Chronic Assessment and Plan: * Continue losartan (5) HLD (hyperlipidemia): Qualifiers: Hyperlipidemia type: unspecified Qualified Code(s): E78.5 - Hyperlipidemia, unspecified Code(s): E78.5 - Hyperlipidemia, unspecified Status: Chronic Assessment and Plan: * Continue atorvastatin Subjective Date/time seen: 02/26/25 07:50 Interval history: 74-year-old male with a past medical history of Encephalomalacia, HTN, HLD, thoracic aortic aneurysm, CVA, COPD, alcohol abuse presents to the ED on 02/25/2025 with complaints of increased dyspnea. 02/26/2025 Patient sitting comfortably in bed at time of examination. Denies any chest pain, shortness of breath, nausea/vomiting or abdominal pain. Blood cultures pending. Continue IV antibiotics for pneumonia. Patient reports he is near his baseline breathing, remains off O2 supplementation. Afebrile, WBC elevated today (12.2 -> 14.6), although recently started methylprednisone. Review of Systems Review of Systems: All systems reviewed & are unremarkable except as noted in HPI and below Exam Narrative: GENERAL: non-toxic appearing, in no acute distress. HEAD: Normocephalic, atraumatic. EYES: PERRLA. Conjunctivae clear. NOSE: Normal no drainage. THROAT: Pharynx clear, no exudate. NECK: ?Trachea midline. No adenopathy, no masses. RESPIRATORY: Airway patent. Some retractions in the neck. Currently on room air at 98%. Expiratory wheezes heard throughout. CARDIOVASCULAR: Regular rate and rhythm GASTROINTESTINAL: ?Abdomen is soft and nontender. ?No organomegaly. ?Bowel sounds normal in all quadrants. Ventral hernia GENITOURINARY: ?Defer MUSCULOSKELETAL: Moves all extremities. No gross deformities. SKIN: Warm, dry, normal color. NEURO: A&O X4. Speech clear PSYCHIATRIC: Normal interaction Objective Data Vital Signs Vital Signs: Vital Signs - 24 hr 02/25/25 08:39 02/25/25 08:40 02/25/25 08:45 Temperature 97.5 F L Pulse Rate 100 Respiratory Rate 20 Blood Pressure 150/85 H Pulse Oximetry 100 100 100 Oxygen Delivery Room Air High Flow Therapy with Na Nasal Cannula Oxygen Flow Rate 4 4 02/25/25 09:18 02/25/25 09:48 02/25/25 09:53 Temperature Pulse Rate 98 116 H 114 H Respiratory Rate 27 H 21 H 27 H Blood Pressure 145/83 H 145/83 H 145/83 H Pulse Oximetry 100 100 Oxygen Delivery Oxygen Flow Rate 02/25/25 10:01 02/25/25 10:15 02/25/25 11:00 Temperature Pulse Rate 125 H 124 H Respiratory Rate 21 H 27 H Blood Pressure 134/81 Pulse Oximetry 100 100 100 Oxygen Delivery Nasal Cannula Oxygen Flow Rate 2 02/25/25 11:00 02/25/25 11:15 02/25/25 11:45 Temperature Pulse Rate 114 H 115 H 113 H Respiratory Rate 26 H 24 H 24 H Blood Pressure 131/74 123/71 Pulse Oximetry 100 99 98 Oxygen Delivery Oxygen Flow Rate 02/25/25 14:00 02/25/25 14:58 02/25/25 20:00 Temperature 97.4 F L Pulse Rate 114 H 99 Respiratory Rate 22 H 20 Blood Pressure 126/96 H Pulse Oximetry 100 94 98 Oxygen Delivery Room Air Room Air Oxygen Flow Rate 02/25/25 21:18 02/25/25 21:36 02/26/25 00:00 Temperature 97.4 F L Pulse Rate 99 Respiratory Rate 20 Blood Pressure 134/83 134/83 134/83 Pulse Oximetry 98 Oxygen Delivery Oxygen Flow Rate 02/26/25 03:23 02/26/25 05:45 Temperature 97.6 F Pulse Rate 83 Respiratory Rate 16 Blood Pressure 134/83 140/76 Pulse Oximetry 98 Oxygen Delivery Oxygen Flow Rate Intake/Output Intake/Output: Intake & Output 02/23/25 02/24/25 02/25/25 02/26/25 23:59 23:59 23:59 23:59 Intake Total 1270 400 Balance 1270 400 Meds/Results Medications: Active Medications Generic Name Dose Route Start Last Admin Trade Name Freq PRN Reason Stop Dose Admin Albuterol/Ipratropium 3 ml 02/26/25 02:00 02/26/25 03:47 Ipratropium 0.5 Mg/Albuterol Sulfate 2.5 Mg (Base) Ampul.Neb 3 Ml INHALATION Not Given Q6HRT [facility] Aspirin 81 mg 02/26/25 08:00 Aspirin 81 Mg Chewable Tablet PO DAILY@0800 [facility] Atorvastatin Calcium 20 mg 02/25/25 21:00 02/25/25 21:39 Atorvastatin 20 Mg Tablet PO 20 mg QHS DIMITRI Administration Azithromycin 250 mg 02/26/25 09:00 Azithromycin 250 Mg Tablet PO 03/01/25 09:01 DAILY [facility] Calcium Carbonate 200 mg 02/25/25 16:43 02/25/25 23:14 Calcium Carbonate (Tums) 500 Mg (200 Mg Elemental) PO 200 mg Q6H PRN Administration Indigestion Chlordiazepoxide HCl 25 mg 02/26/25 00:00 02/26/25 05:58 Chlordiazepoxide (*Crx) 25 Mg Capsule PO 25 mg Q6HR [facility] Administration Enoxaparin Sodium 40 mg 02/25/25 21:00 02/25/25 21:39 Enoxaparin 40 Mg/0.4 Ml Syringe SUB-Q Not Given HS [facility] Famotidine 20 mg 02/26/25 09:00 Famotidine 20 Mg/2 Ml Vial IV PUSH Q12HR [facility] Fish Oil 1 gm 02/25/25 21:00 02/25/25 21:39 [place] 3 Polyunsat Fatty Acids 1 Gm Cap PO 1 gm Q12HR DIMITRI Administration Fluticasone/Umeclidinium/Vilanterol 1 puff 02/26/25 08:00 Fluticasone/Umeclidin/Vilanter 100-62.5-25 Mcg Ellipta INHALATION DAILYRT [facility] Folic Acid 1 mg 02/26/25 09:00 Folic Acid 1 Mg Tablet PO DAILY [facility] Doxycycline Hyclate 100 mg/ 100 mls @ 100 mls/hr 02/25/25 16:00 02/26/25 04:16 Sodium Chloride IVPB 03/02/25 04:59 Infused Q12H [facility] Infusion Loratadine 10 mg 02/26/25 09:00 Loratadine 10 Mg Tablet PO DAILY [facility] Lorazepam 2 mg 02/25/25 21:17 Lorazepam (*Crx) 1 Mg Tablet PO Q2H PRN CIWA>8, HR>100, or DBP>100 Losartan Potassium 25 mg 02/26/25 09:00 Losartan Potassium 25 Mg Tablet BY MOUTH DAILY [facility] Methylprednisolone Sodium Succinate 60 mg 02/25/25 18:00 02/26/25 05:58 Methylprednisolone Sod Succ 125 Mg Vial IV PUSH 60 mg Q6HR [facility] Administration Thiamine HCl 100 mg 02/26/25 09:00 Thiamine Hcl 100 Mg Tablet PO DAILY [facility] Radiology Results: ITS Impressions Chest X-Ray 02/25/25 11:04 IMPRESSION: 1. Possible small developing consolidation along the left heart border. Labs Labs: Laboratory Results - last 24 hr 02/25/25 02/25/25 02/25/25 09:06 09:10 09:19 WBC RBC Hgb Hct MCV MCH MCHC RDW Plt Count MPV Immature Gran % (Auto) Neut % (Auto) Lymph % (Auto) Howell % (Auto) Eos % (Auto) Baso % (Auto) Lymph # (Auto) Howell # (Auto) Eos # (Auto) Baso # (Auto) Abs Immat Gran (auto) Absolute Neuts (auto) Absolute Nucleated RBC Nucleated RBC % VBG pH 7.313 VBG pCO2 57.0 H VBG pO2 < 27.0 L VBG HCO3 28.2 O2 Delivery Device Nasal cannula O2 Liters/Min 2.0 FiO2 28 Sodium 139 Potassium 4.2 Chloride 107 Carbon Dioxide 24 Anion Gap 8 BUN 14 Creatinine 0.85 Estim Creat Clear Calc 50 Estimated GFR > 60 Glucose 119 H POC Capillary Glucose Lactic Acid 1.7 Calcium 9.3 Magnesium 1.8 Total Bilirubin 0.8 AST 34 ALT 23 Alkaline Phosphatase 46 Troponin I < 0.012 NT-Pro-B Natriuret Pep 55 Total Protein 7.8 Albumin 4.2 Influenza A (RT-PCR) Negative Influenza B (RT-PCR) Negative RSV (RT-PCR) Negative SARS-CoV-2 RNA (RT-PCR) Negative 02/25/25 02/25/25 02/26/25 09:43 23:34 05:39 WBC 12.2 H 14.6 H RBC 4.65 4.37 L Hgb 14.1 13.3 L Hct 43.9 40.6 L MCV 94.4 92.9 MCH 30.3 30.4 MCHC 32.1 32.8 RDW 13.9 13.9 Plt Count 262 281 MPV 9.9 10.8 H Immature Gran % (Auto) 0.6 H 0.5 Neut % (Auto) 78.0 H 94.2 H Lymph % (Auto) 11.1 L 4.0 L Howell % (Auto) 6.7 1.2 L Eos % (Auto) 3.1 0.0 Baso % (Auto) 0.5 0.1 L Lymph # (Auto) 1.36 0.58 L Howell # (Auto) 0.8 H 0.2 Eos # (Auto) 0.4 H 0.0 Baso # (Auto) 0.1 0.0 Abs Immat Gran (auto) 0.07 H 0.08 H Absolute Neuts (auto) 9.5 H 13.7 H Absolute Nucleated RBC 0.000 0.000 Nucleated RBC % 0.0 0.0 VBG pH VBG pCO2 VBG pO2 VBG HCO3 O2 Delivery Device O2 Liters/Min FiO2 Sodium 136 L Potassium 4.3 Chloride 104 Carbon Dioxide 23 Anion Gap 9 BUN 11 Creatinine 0.63 L Estim Creat Clear Calc 66 Estimated GFR > 60 Glucose 142 H POC Capillary Glucose 181 H Lactic Acid Calcium 9.0 Magnesium Total Bilirubin AST ALT Alkaline Phosphatase Troponin I NT-Pro-B Natriuret Pep Total Protein Albumin Influenza A (RT-PCR) Influenza B (RT-PCR) RSV (RT-PCR) SARS-CoV-2 RNA (RT-PCR) 02/26/25 06:02 WBC RBC Hgb Hct MCV MCH MCHC RDW Plt Count MPV Immature Gran % (Auto) Neut % (Auto) Lymph % (Auto) Howell % (Auto) Eos % (Auto) Baso % (Auto) Lymph # (Auto) Howell # (Auto) Eos # (Auto) Baso # (Auto) Abs Immat Gran (auto) Absolute Neuts (auto) Absolute Nucleated RBC Nucleated RBC % VBG pH VBG pCO2 VBG pO2 VBG HCO3 O2 Delivery Device O2 Liters/Min FiO2 Sodium Potassium Chloride Carbon Dioxide Anion Gap BUN Creatinine Estim Creat Clear Calc Estimated GFR Glucose POC Capillary Glucose 156 H Lactic Acid Calcium Magnesium Total Bilirubin AST ALT Alkaline Phosphatase Troponin I NT-Pro-B Natriuret Pep Total Protein Albumin Influenza A (RT-PCR) Influenza B (RT-PCR) RSV (RT-PCR) SARS-CoV-2 RNA (RT-PCR) Quality VTE Prophylaxis VTE prophylaxis: pharmacologic ordered
[2025-02-26] MEDS: LOSARTAN POTASSIUM 25 MG TABLET BY MOUTH (09:00)
[2025-02-26] MEDS: FOLIC ACID 1 MG TABLET PO (09:00)
[2025-02-26] MEDS: LORATADINE 10 MG TABLET PO (09:00)
[2025-02-26] MEDS: AZITHROMYCIN 250 MG TABLET PO (09:00)
[2025-02-26] MEDS: FAMOTIDINE 20 MG/2 ML VIAL IV PUSH ×2 (09:00→21:40)
[2025-02-26] MEDS: THIAMINE HCL 100 MG TABLET PO (09:00)
[2025-02-26] MEDS: OMEGA 3 POLYUNSAT FATTY ACIDS 1 GM CAP PO ×2 (09:00→20:39)
[2025-02-26] MEDS: ASPIRIN 81 MG CHEWABLE TABLET PO (09:00)
[2025-02-26] MEDS: IPRATROPIUM 0.5 MG/ALBUTEROL SULFATE 2.5 MG (BASE) AMPUL.NEB 3 ML INHALATION ×3 (09:49→19:41)
[2025-02-26] MEDS: ENOXAPARIN 40 MG/0.4 ML SYRINGE SUB-Q (20:39)
[2025-02-26] MEDS: ATORVASTATIN 20 MG TABLET PO (20:39)
[2025-02-26] MEDS: LORazepam (*CRX) 1 MG TABLET 2 MG PO (20:39)
--- NOTE | 2025-02-26 23:01 | P.PNCROSS_ITS ---
Event Note Event Note Event Note: Called by nursing for patient being extremely agitated, throwing things at nurs ing CIWA score 17 Medications adjusted
--- NOTE | 2025-02-26 23:01 | PM.EVENT ---
Event Note Event Note Event Note: Called by nursing for patient being extremely agitated, throwing things at nursing CIWA score 17 Medications adjusted
--- NOTE | 2025-02-26 23:06 | PC.NURSE ---
0-Pt remains on CIWAs. Pt A&Ox1, reoriented frequently as needed. Pt has increased anxiety and aggressive behavior noted.Difficult to redirect. This nurse inquired about food/toileting needs,discomfort, and any other requests.Food provided, pt uses urinal, denies discomfort at the moment. Pt began to throw items across room. Several attempts to calm pt, unsuccessful. Call light within reach. 2300- Provider made aware. CIWA reassessed, pt now scoring 17, requiring 1:1 staff supervision at this time
[2025-02-26] MEDS: LORazepam INJ (*CRX) 2 MG/ML VIAL IV PUSH (23:34)
[2025-02-26] MEDS: diazePAM INJ (*CRX) 10 MG/2 ML SYRINGE IV PUSH (23:55)
[2025-02-27] VITALS (55 sets, daily range): BP systolic 90–172; BP diastolic 59–115; PULSE 65–130; RESP 18–36; TEMP 36.4–36.7; O2SAT 84–100
--- NOTE | 2025-02-27 00:03 | PM.CCN ---
Critical Care Event Note Summary Code activated: Yes Narrative: Code purple called on patient Code purple called on patient patient is having visual hallucinations, and kicking Patient given 10 of Valium and 2 mg of Ativan 15 minute recheck patient's rip off his Skin with hallucinations increasing ICU attending called in accepted patient Precedex drip to start once patient is in ICU Okay for restraints Critical Care Time Critical Care Time: Yes Total Critical Care Time: 37 Due to a high probability of clinically significant, life threatening deterioration, the patient required my highest level of preparedness to intervene emergently and I personally spent this critical care time directly and personally managing the patient. This critical care time included obtaining a history; examining the patient; pulse oximetry; ordering and review of studies; arranging urgent treatment with development of a management plan; evaluation of patient's response to treatment; frequent reassessment; and discussions with other providers. It was exclusive of separately billable procedures and treating other patients and teaching time. Please see Assessment and Plan section and the rest of the note for further information on patient assessment and treatment. This case had a high probability of a clinically significant, sudden, or life threatening deterioration of this patient's condition which required my full and direct attention, intervention and personal management. Critical care time: 30 - 74 mins
--- NOTE | 2025-02-27 00:12 | PC.NURSE ---
Code purple called.Meds given per MAY. Pt continues to be aggressive/combative, uncooperative, difficult to redirect. Pt attempted to tear own skin and hallucinations continued. Soft wrist restraints applied to bilateral wrists. Staff currently at bedside to monitor. SBAR faxed to ICU, Awaiting bed availability.
--- NOTE | 2025-02-27 00:43 | PC.NURSE ---
0030-Pt transported to ICU 1. Pt stable, asleep during transfer.Verbal report given to LEONEL Fox
[2025-02-27] MEDS: dexmedeTOMIDine 400 MCG/100 ML 400 MCG/100 ML BAG 19.69 MCG IV CONT (01:15)
[2025-02-27] MEDS: LORazepam INJ (*CRX) 2 MG/ML VIAL IV PUSH (01:36)
[2025-02-27] MEDS: IPRATROPIUM 0.5 MG/ALBUTEROL SULFATE 2.5 MG (BASE) AMPUL.NEB 3 ML INHALATION ×2 (02:03→09:11)
[2025-02-27 02:26] LABS: MRSA (PCR) NOT DETECTED (NOT DETECTE)
[2025-02-27] MEDS: DOXYCYCLINE IV 100 MG in SODIUM CHLORIDE 0.9% IV 100 ML IVPB ×2 (04:00→17:25)
--- NOTE | 2025-02-27 09:09 | WPDCNINT2 ---
Assessment and Plan Assessment and plan (1) Acute exacerbation of chronic obstructive pulmonary disease: Code(s): J44.1 - Chronic obstructive pulmonary disease with (acute) exacerbation Status: Acute Assessment and Plan: ABG and chest x-ray reviewed. Patient is saturating well on nasal cannula this time. Wean FiO2. Continue steroids were decrease the dose to q.a.m. Continue bronchodilators, fluticasone Continue doxycycline. Discontinue azithromycin. (2) Agitation: Code(s): R45.1 - Restlessness and agitation Status: Acute Assessment and Plan: Likely combination of alcohol withdrawal and delirium Decrease steroid Continue Librium Wean off Precedex P.r.n. Ativan Monitor (3) Alcohol withdrawal: Code(s): F10.939 - Alcohol use, unspecified with withdrawal, unspecified Status: Acute Assessment and Plan: Continue in thiamine and folic acid (4) Delirium: Code(s): R41.0 - Disorientation, unspecified Status: Acute Assessment and Plan: See above (5) CAD (coronary artery disease): Code(s): I25.10 - Atherosclerotic heart disease of [place] coronary artery without angina pectoris Status: Acute Assessment and Plan: Continue aspirin losartan and statin (6) HTN (hypertension): Qualifiers: Hypertension type: primary hypertension Qualified Code(s): I10 - Essential (primary) hypertension Code(s): I10 - Essential (primary) hypertension Status: Chronic Assessment and Plan: Continue losartan Plan DVT prophylaxis -Lovenox Stress ulcer prophylaxis -Pepcid Nutrition -diet ordered Code Status - Full Code Total Critical Care Time - 30 minutes Due to a high probability of clinically significant, life threatening deterioration, the patient required my highest level of preparedness to intervene emergently and I personally spent this critical care time directly and personally managing the patient. This critical care time included obtaining a history; examining the patient; pulse oximetry; ordering and review of studies; arranging urgent treatment with development of a management plan; evaluation of patient's response to treatment; frequent reassessment; and discussions with other providers. It was exclusive of separately billable procedures and treating other patients and teaching time. 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 Last night patient became agitated delirious and rapid response was called. Patient was diagnosed with alcohol withdrawal and was given benzodiazepine and transferred to ICU and started on Precedex infusion History was obtained from chart review. This morning I am unable to obtain any further history or review of system as patient is sedated on Precedex Review of Systems Review of Systems: ROS unobtainable: Yes unobtainable due to medical condition and unobtainable due to mental status [facility] Past Medical History Medical History (Updated 02/27/25 @ 09:13 by Gomez Armstrong MD) Encephalomalacia Ventral hernia without obstruction or gangrene Umbilical hernia without obstruction and without gangrene Hernia, inguinal, left Esophagitis Bilateral recurrent inguinal hernia without obstruction or gangrene Alcohol abuse COPD with asthma Neurofibroma (~2021) History of colon polyps Environmental allergies Prediabetes Pulmonary nodule Thoracic aortic aneurysm 4cm on 2018 ct HTN (hypertension) HLD (hyperlipidemia) Surgical History Surgical History H/O excision of mass Excision 11mm back skin lesion (x2) 10/13/21 - neurofibroma History of excision of mass 12/13/20 History of ventral hernia repair (~07/2016) History of umbilical hernia repair (~07/2016) History of lumbosacral spine surgery 1980s Family History Family History Sibling Cerebrovascular accident Hypertension Father Hypertension Other Family history of allergic disorder Family history of chronic obstructive pulmonary disease Social History Social History Social History: caffeine use: drinks coffee occasionally Smoking packs per day: 2 Smoking cigarettes per day: 40.0 Years smoked: 50 Smoking pack-years: 100.00 Smoking status: Former smoker Second hand tobacco smoke exposure: No Alcohol intake: current Drinks per week: 28 Alcohol use details: drinks beer Substance use: never Substance use type: does not use Lack of Transportation: No Lack of Food: Never True Current Housing: I Have Housing Concerned About Future Housing: No Difficulty Paying Gas/Electric Bills: No Difficulty Paying for Meds: No Currently Unemployed: No Education: Associate Degree Difficulty w/ Childcare or Family Care: No Living arrangements: other Additional living arrangements comments: LIVES WITH SIGNIFICANT OTHER Occupation/Education: other Gender identity (if verbalized by the patient): Male Spiritual care concerns: No Meds Home Medications and Allergies Home Medications ?Medication ?Instructions ?Recorded ?Confirmed ?Type atorvastatin 20 mg tablet 20 mg PO QHS #30 tabs 06/05/24 02/25/25 Rx albuterol sulfate 90 mcg/actuation 2 puff inhalation Q4H PRN 09/28/24 02/25/25 Rx aerosol inhaler bronchospasm #8.5 grams aspirin 81 mg tablet 81 mg PO DAILY 11/24/24 02/25/25 History omega-3 fatty acids-vitamin E 1 cap PO QAM AND QHS 11/24/24 02/25/25 History 1,000 mg capsule losartan 25 mg tablet See Rx Instructions .Route 12/28/24 02/25/25 Rx .COMPLEX #90 tabs loratadine 10 mg tablet (Claritin) 10 mg PO DAILY #90 tabs 01/05/25 02/25/25 Rx budesonide 160 mcg-glycopyr 9 See Rx Instructions .Route 02/23/25 02/25/25 Rx mcg-formot 4.8 mcg/actuation HFA .COMPLEX #11 grams inhaler (Breztri Aerosphere) Allergies Allergy/AdvReac Type Severity Reaction Status Date / Time Penicillins Allergy Unknown THROAT Verified 02/25/25 14:11 SWELLING Vital Signs Vital Signs - 24 hr 02/26/25 09:52 02/26/25 10:00 02/26/25 10:10 Temperature Pulse Rate 74 70 Pulse Rate [Bilateral Pedal (Dorsalis Pedis) Palpation] Respiratory Rate 20 20 Blood Pressure Pulse Oximetry 99 Oxygen Delivery Room Air Oxygen Flow Rate 02/26/25 13:36 02/26/25 15:09 02/26/25 15:17 Temperature 36.3 C L Pulse Rate 100 76 80 Pulse Rate [Bilateral Pedal (Dorsalis Pedis) Palpation] Respiratory Rate 16 16 16 Blood Pressure 132/67 Pulse Oximetry 98 Oxygen Delivery Oxygen Flow Rate 02/26/25 19:41 02/26/25 19:44 02/26/25 19:51 Temperature Pulse Rate 76 78 Pulse Rate [Bilateral Pedal (Dorsalis Pedis) Palpation] Respiratory Rate 16 16 Blood Pressure Pulse Oximetry 98 Oxygen Delivery Room Air Oxygen Flow Rate 02/26/25 21:32 02/27/25 00:30 02/27/25 00:45 Temperature 36.4 C Pulse Rate 113 H 130 H Pulse Rate [Bilateral Pedal (Dorsalis Pedis) Palpation] 130 H Respiratory Rate 20 33 H Blood Pressure 127/64 Pulse Oximetry 98 Oxygen Delivery Room Air Oxygen Flow Rate 02/27/25 01:15 02/27/25 01:40 02/27/25 02:03 Temperature Pulse Rate 130 H 95 75 Pulse Rate [Bilateral Pedal (Dorsalis Pedis) Palpation] Respiratory Rate 27 H 24 H 21 H Blood Pressure Pulse Oximetry 98 Oxygen Delivery Nasal Cannula Oxygen Flow Rate 2 02/27/25 02:03 02/27/25 02:15 02/27/25 04:00 Temperature Pulse Rate 75 76 Pulse Rate [Bilateral Pedal (Dorsalis Pedis) Palpation] 75 Respiratory Rate 21 H 20 Blood Pressure Pulse Oximetry Oxygen Delivery Oxygen Flow Rate 02/27/25 04:00 02/27/25 04:00 02/27/25 04:30 Temperature Pulse Rate 75 75 68 Pulse Rate [Bilateral Pedal (Dorsalis Pedis) Palpation] Respiratory Rate 20 20 20 Blood Pressure 161/102 H 150/85 H Pulse Oximetry 100 100 99 Oxygen Delivery Nasal Cannula Oxygen Flow Rate 2 02/27/25 07:45 02/27/25 07:46 Temperature Pulse Rate 65 65 Pulse Rate [Bilateral Pedal (Dorsalis Pedis) Palpation] Respiratory Rate 20 20 Blood Pressure Pulse Oximetry Oxygen Delivery Oxygen Flow Rate Exam Narrative: General: Pt is drowsy Lungs/Chest: Trachea central course BS B/L, No crackles or wheezing. Cardiac: RRR. Normal S1 S2. No murmurs Circulation: Pedal pulses are intact and symmetrical. Abdomen: Normal bowel sounds.. Soft. NT. ND. Extremities: No clubbing, cyanosis or edema. Warm : Samson in place Neurologic: Patient is drowsy, grimaces on sternal stimuli Moves all 4 extremities to painful stimuli PERRL Skin: No Rash Results Labs 02/26/25 05:39 02/26/25 05:39 Quality VTE Prophylaxis VTE prophylaxis: pharmacologic ordered
[2025-02-27] MEDS: FAMOTIDINE 20 MG/2 ML VIAL IV PUSH ×2 (09:47→20:23)
[2025-02-27] MEDS: chlordiazePOXIDE (*CRX) 25 MG CAPSULE PO ×3 (14:27→23:02)
[2025-02-27] MEDS: FOLIC ACID 1 MG TABLET PO (17:24)
[2025-02-27] MEDS: THIAMINE HCL 100 MG TABLET PO (17:24)
[2025-02-27] MEDS: LOSARTAN POTASSIUM 25 MG TABLET BY MOUTH (17:41)
[2025-02-27] MEDS: OMEGA 3 POLYUNSAT FATTY ACIDS 1 GM CAP PO (20:23)
[2025-02-27] MEDS: ATORVASTATIN 20 MG TABLET PO (20:23)
[2025-02-27] MEDS: ENOXAPARIN 40 MG/0.4 ML SYRINGE SUB-Q (20:25)
[2025-02-27] MEDS: LORazepam (*CRX) 1 MG TABLET 2 MG PO (23:02)
--- NOTE | 2025-02-27 23:45 | PC.NURSE ---
Patient overnight has taken tele leads/pulse ox off several times. Proceeded then to take gown off, then paper gaurav & pad off the bed. But overall was being cooperative with the nurse, allowing vitals, taking meds & doing assessments. At 2248, patient removed tele leads, pulse ox and blood pressure cuff off and was trying to pull out his IV. I entered the room, wrapped the IV up to prevent the removal of it, and re-educated the patient on the reasons/importance of not removing the IV and why the monitoring items needed to be worn. Patient refused to allow me to place the items back on. I evaluated his CIWA at this time w/a score of 10, admin 2mg PO Ativan per orders and admin Librium due at 0000 at 2302. I was at the nurses station when the bed alarm sounded at approximately 2307, I entered the room and saw the patient walking into the bathroom, the door slammed shut behind him as I approached the door then I heard the patient fall. I opened the door immediately and found the patient sitting on the floor. Patient denies hitting his head or being injured. Patient was assisted up & onto the toilet. Vitals were taken. Patient was again educated on why he needs to wear his monitor items and the importance to call for help to prevent falls/injuries. Patient was taken back to bed, wearing all monitoring items and I reinforced fall safety protocol and leaving lines on. Patient is AOx2. Patient is currently sleeping. Dr. Palmer, the hospitalist was notified of the fall. The lost charge card clerk, Jesica was notified and had come to the room to assist. roofing supervisor, Digna was also notified.
[2025-02-28] VITALS (21 sets, daily range): BP systolic 92–154; BP diastolic 50–111; PULSE 57–121; RESP 18–31; TEMP 36.3–36.7; O2SAT 92–100
--- NOTE | 2025-02-28 00:03 | PC.NURSE ---
Patient was pulling on Samson Cath at beginning of shift and stating he wanted it removed. He had threatened the day RN (when she offered to remove it) that he would punch her if it hurt. He continued to pull at it telling me he wanted it out. There was blood noted in the urine. I told the patient I would remove it so he didn't injure himself pulling it out but he had to be cooperative. Samson was removed around 1999 at patient's insistence and to prevent him from pulling it out himself and inuring himself.
[2025-02-28] MEDS: DOXYCYCLINE IV 100 MG in SODIUM CHLORIDE 0.9% IV 100 ML IVPB (03:33)
[2025-02-28 03:45] LABS: Hematocrit 37.4 % (42.0-52.0); Hemoglobin 12.0 g/dL (14.0-18.0); Mean Corpuscular HGB Conc 32.1 g/dl (32-36); Mean Corpuscular Hemoglobin 30.4 pg (26-34); Mean Corpuscular Volume 94.7 fl (80-100); Platelet Count Result 292 k/mm3 (150-375); Red Blood Count 3.95 M/mm3 (4.6-6.20); White Blood Count 21.9 K/mm3 (4.5-10.0)
[2025-02-28 04:02] LABS: Alanine Aminotransferase 34 U/L (6-50); Albumin Level 3.2 g/dL (3.5-5.1); Alkaline Phosphatase 34 U/L (38-126); Anion Gap 4 mmol/L (4-12); Aspartate Amino Transferase 49 U/L (17-59); Bilirubin,Total 0.4 mg/dL (0.2-1.3); Blood Urea Nitrogen 22 mg/dL (9-20); Calcium 9.1 mg/dL (8.4-10.2); Carbon Dioxide 27 mmol/L (22-30); Chloride 108 mmol/L (98-107); Estimated CRCL calculation 55 ml/min; Estimated Glomerular Filt Rate > 60; Glucose 130 mg/dL (65-110); Magnesium 1.9 mg/dL (1.6-2.3); Potassium 4.2 mmol/L (3.4-5.0); Sodium 139 mmol/L (137-145); Total Protein 6.0 g/dL (6.3-8.2)
[2025-02-28] MEDS: LORazepam INJ (*CRX) 2 MG/ML VIAL 1 MG IV PUSH ×4 (04:06→18:34)
--- NOTE | 2025-02-28 04:22 | PC.NURSE ---
Patient was woken up for labs at 0330, assistance was needed by staff to hold patient to allow labor economics teacher to draw blood. Patient became increasingly agitated afterwards pulling gown, tele leads, blood pressure cuff and pulse ox off. Patient also urinated in the bed. Staff was able to get patient up onto a BSC to change the linens. Patient was put back into bed with blood pressure cuff & tele leads. Pulse ox was able to be replaced by placing on a toe later as patient was uncooperative with this task. Patient also was labored in breathing due to excessive movements and staff tried to get him to wear Oxygen, but he kept pulling the nasal cannula off and yelling at the staff. I called for a PRN breathing treatment, too. Patient was assessed for CIWA and scored a 12 so was admin IV 1mg Ativan per orders. I am sitting in the room with the patient as he has still not settled down and is trying to climb out of bed, refusing to wear a gown or be covered with sheets/blankets.
--- NOTE | 2025-02-28 08:50 | P.PNINT_ITS ---
Assessment and Plan Assessment and Plan (1) Acute exacerbation of chronic obstructive pulmonary disease: Code(s): J44.1 - Chronic obstructive pulmonary disease with (acute) exacerbation Status: Acute Assessment and Plan: ABG and chest x-ray reviewed. Patient is saturating well on room air Continue steroids q.a.m. Continue bronchodilators, fluticasone Continue doxycycline. Discontinue azithromycin. (2) Agitation: Code(s): R45.1 - Restlessness and agitation Status: Acute Assessment and Plan: Likely combination of alcohol withdrawal and delirium Decreased steroid Continue Librium Off Precedex P.r.n. Ativan Monitor (3) Alcohol withdrawal: Code(s): F10.939 - Alcohol use, unspecified with withdrawal, unspecified Status: Acute Assessment and Plan: Continue in thiamine and folic acid (4) Delirium: Code(s): R41.0 - Disorientation, unspecified Status: Acute Assessment and Plan: See above (5) CAD (coronary artery disease): Code(s): I25.10 - Atherosclerotic heart disease of [place] coronary artery without angina pectoris Status: Acute Assessment and Plan: Continue aspirin losartan and statin (6) HTN (hypertension): Qualifiers: Hypertension type: primary hypertension Qualified Code(s): I10 - Essential (primary) hypertension Code(s): I10 - Essential (primary) hypertension Status: Chronic Assessment and Plan: Continue losartan Plan DVT prophylaxis -Lovenox Stress ulcer prophylaxis -Pepcid Nutrition -diet ordered Code Status - Full Code Transferred to to step-down unit Subjective Date/time seen: 02/28/25 Overnight events reviewed. Patient had episode where he was agitated and taking off lines and tubes. He was uncooperative with the staff. He was given Ativan. Now he is drowsy. He wakes up easily on stimulation but mumbles and goes back to sleep. He does not answer questions or follows commands but clearly is moving all 4 extremities and wants to go back to sleep and pulses she had on his face. Review of systems is not obtainable due to confusion and uncooperative nature Review of Systems Review of Systems: ROS unobtainable: Yes unobtainable due to medical condition and unobtainable due to mental status Exam Narrative: General: Pt is drowsy Lungs/Chest: Trachea central course BS B/L, No crackles or wheezing. Cardiac: RRR. Normal S1 S2. No murmurs Circulation: Pedal pulses are intact and symmetrical. Abdomen: Normal bowel sounds.. Soft. NT. ND. Extremities: No clubbing, cyanosis or edema. Warm : Samson in place Neurologic: Patient is sleeping but wakes up on stimulation, resist exam is and does not follow commands. He is moving all 4 extremities and would not allow examination of his pupils Skin: No Rash Objective Data Vital Signs Vital Signs: Vital Signs - 24 hr 02/27/25 09:00 02/27/25 09:12 02/27/25 09:12 Temperature Pulse Rate 97 79 Pulse Rate [Bilateral Pedal (Dorsalis Pedis) Palpation] Pulse Rate [Monitor] Respiratory Rate 24 H 19 Blood Pressure 130/71 Pulse Oximetry 100 100 Oxygen Delivery Nasal Cannula Oxygen Flow Rate 2 02/27/25 09:21 02/27/25 09:33 02/27/25 10:00 Temperature 36.6 C Pulse Rate 77 85 Pulse Rate [Bilateral Pedal (Dorsalis Pedis) Palpation] Pulse Rate [Monitor] Respiratory Rate 20 20 Blood Pressure 97/63 L Pulse Oximetry 98 93 Oxygen Delivery Room Air Oxygen Flow Rate 02/27/25 11:00 02/27/25 11:48 02/27/25 11:49 Temperature 36.5 C Pulse Rate 90 97 Pulse Rate [Bilateral Pedal (Dorsalis Pedis) Palpation] 87 Pulse Rate [Monitor] Respiratory Rate 20 18 Blood Pressure 94/59 L 90/79 L Pulse Oximetry 93 96 Oxygen Delivery Oxygen Flow Rate 02/27/25 11:53 02/27/25 12:00 02/27/25 14:00 Temperature Pulse Rate 88 109 H Pulse Rate [Bilateral Pedal (Dorsalis Pedis) Palpation] Pulse Rate [Monitor] Respiratory Rate Blood Pressure Pulse Oximetry 100 Oxygen Delivery Nasal Cannula Oxygen Flow Rate 2 02/27/25 14:11 02/27/25 16:00 02/27/25 16:00 Temperature Pulse Rate 109 H 106 H Pulse Rate [Bilateral Pedal (Dorsalis Pedis) Palpation] Pulse Rate [Monitor] Respiratory Rate 36 H Blood Pressure 102/64 Pulse Oximetry 96 Oxygen Delivery Room Air Oxygen Flow Rate 02/27/25 16:21 02/27/25 17:00 02/27/25 17:40 Temperature 36.4 C Pulse Rate 107 H 107 H 116 H Pulse Rate [Bilateral Pedal (Dorsalis Pedis) Palpation] Pulse Rate [Monitor] Respiratory Rate 27 H 28 H 25 H Blood Pressure 140/91 H Pulse Oximetry 99 100 84 L Oxygen Delivery Oxygen Flow Rate 02/27/25 18:00 02/27/25 18:00 02/27/25 18:01 Temperature Pulse Rate 112 H 99 107 H Pulse Rate [Bilateral Pedal (Dorsalis Pedis) Palpation] Pulse Rate [Monitor] Respiratory Rate 29 H 30 H Blood Pressure 131/95 H Pulse Oximetry 97 96 Oxygen Delivery Oxygen Flow Rate 02/27/25 18:30 02/27/25 19:00 02/27/25 19:01 Temperature Pulse Rate 105 H 120 H 111 H Pulse Rate [Bilateral Pedal (Dorsalis Pedis) Palpation] Pulse Rate [Monitor] Respiratory Rate 26 H 20 29 H Blood Pressure 159/87 H 172/101 H Pulse Oximetry 97 95 96 Oxygen Delivery Oxygen Flow Rate 02/27/25 19:30 02/27/25 20:00 02/27/25 20:00 Temperature Pulse Rate 119 H 114 H Pulse Rate [Bilateral Pedal (Dorsalis Pedis) Palpation] Pulse Rate [Monitor] 114 H Respiratory Rate 31 H 25 H Blood Pressure 141/89 H 160/94 H Pulse Oximetry 96 99 Oxygen Delivery Oxygen Flow Rate 02/27/25 20:00 02/27/25 20:00 02/27/25 20:01 Temperature Pulse Rate 114 H 110 H Pulse Rate [Bilateral Pedal (Dorsalis Pedis) Palpation] Pulse Rate [Monitor] Respiratory Rate 28 H Blood Pressure Pulse Oximetry 98 Oxygen Delivery Room Air Oxygen Flow Rate 02/27/25 21:00 02/27/25 22:00 02/27/25 22:00 Temperature 36.6 C Pulse Rate 117 H 95 95 Pulse Rate [Bilateral Pedal (Dorsalis Pedis) Palpation] Pulse Rate [Monitor] Respiratory Rate 27 H 22 H Blood Pressure 142/92 H 119/72 Pulse Oximetry 97 94 Oxygen Delivery Oxygen Flow Rate 02/27/25 23:17 02/27/25 23:21 02/27/25 23:30 Temperature Pulse Rate 110 H 114 H Pulse Rate [Bilateral Pedal (Dorsalis Pedis) Palpation] Pulse Rate [Monitor] Respiratory Rate 23 H 24 H Blood Pressure 124/94 H 124/94 H Pulse Oximetry 93 92 Oxygen Delivery Room Air Oxygen Flow Rate 02/27/25 23:37 02/28/25 00:00 02/28/25 00:00 Temperature 36.7 C Pulse Rate 108 H 87 85 Pulse Rate [Bilateral Pedal (Dorsalis Pedis) Palpation] Pulse Rate [Monitor] Respiratory Rate 32 H 29 H Blood Pressure 124/94 H 97/63 L Pulse Oximetry 96 92 Oxygen Delivery Oxygen Flow Rate 02/28/25 01:00 02/28/25 02:00 02/28/25 02:00 Temperature Pulse Rate 76 76 76 Pulse Rate [Bilateral Pedal (Dorsalis Pedis) Palpation] Pulse Rate [Monitor] Respiratory Rate 24 H 26 H Blood Pressure 101/51 L 100/50 L Pulse Oximetry 93 94 Oxygen Delivery Oxygen Flow Rate 02/28/25 03:00 02/28/25 04:00 02/28/25 04:00 Temperature Pulse Rate 82 97 Pulse Rate [Bilateral Pedal (Dorsalis Pedis) Palpation] Pulse Rate [Monitor] 111 H Respiratory Rate 26 H 21 H Blood Pressure 92/52 L Pulse Oximetry 93 92 Oxygen Delivery Oxygen Flow Rate 02/28/25 04:00 02/28/25 04:00 02/28/25 04:08 Temperature 36.5 C Pulse Rate 107 H 106 H Pulse Rate [Bilateral Pedal (Dorsalis Pedis) Palpation] Pulse Rate [Monitor] Respiratory Rate 29 H Blood Pressure 126/111 H Pulse Oximetry Oxygen Delivery Room Air Oxygen Flow Rate 02/28/25 05:00 02/28/25 06:00 02/28/25 06:00 Temperature Pulse Rate 91 84 84 Pulse Rate [Bilateral Pedal (Dorsalis Pedis) Palpation] Pulse Rate [Monitor] Respiratory Rate 31 H 23 H Blood Pressure 143/84 H 116/76 Pulse Oximetry 94 95 Oxygen Delivery Oxygen Flow Rate 02/28/25 07:00 02/28/25 08:00 Temperature 36.6 C Pulse Rate 68 72 Pulse Rate [Bilateral Pedal (Dorsalis Pedis) Palpation] Pulse Rate [Monitor] Respiratory Rate 24 H 26 H Blood Pressure 131/77 120/81 Pulse Oximetry 97 98 Oxygen Delivery Oxygen Flow Rate Intake/Output Intake/Output: Intake & Output 02/25/25 02/26/25 02/27/25 02/28/25 23:59 23:59 23:59 23:59 Intake Total 1270 1420 537.2 250 Output Total 600 200 Balance 1270 1420 -62.8 50 Meds/Results Medications: Active Medications Generic Name Dose Route Start Last Admin Trade Name Freq PRN Reason Stop Dose Admin Albuterol/Ipratropium 3 ml 02/27/25 09:18 Ipratropium 0.5 Mg/Albuterol Sulfate 2.5 Mg (Base) Ampul.Neb 3 Ml INHALATION Q6HRT PRN Wheezing Aspirin 81 mg 02/26/25 08:00 02/27/25 15:48 Aspirin 81 Mg Chewable Tablet PO Not Given DAILY@0800 STEPHANIE Atorvastatin Calcium 20 mg 02/25/25 21:00 02/27/25 20:23 Atorvastatin 20 Mg Tablet PO 20 mg QHS STEPHANIE Administration Calcium Carbonate 200 mg 02/25/25 16:43 02/25/25 23:14 Calcium Carbonate (Tums) 500 Mg (200 Mg Elemental) PO 200 mg Q6H PRN Administration Indigestion Chlordiazepoxide HCl 25 mg 02/26/25 00:00 02/27/25 23:02 Chlordiazepoxide (*Crx) 25 Mg Capsule PO 25 mg Q6HR STEPHANIE Administration Enoxaparin Sodium 40 mg 02/25/25 21:00 02/27/25 20:25 Enoxaparin 40 Mg/0.4 Ml Syringe SUB-Q 40 mg HS STEPHANIE Administration Famotidine 20 mg 02/26/25 09:00 02/27/25 20:23 Famotidine 20 Mg/2 Ml Vial IV PUSH 20 mg Q12HR STEPHANIE Administration Fish Oil 1 gm 02/25/25 21:00 02/27/25 20:23 [place] 3 Polyunsat Fatty Acids 1 Gm Cap PO 1 gm Q12HR STEPHANIE Administration Fluticasone/Umeclidinium/Vilanterol 1 puff 02/26/25 08:00 02/27/25 09:26 Fluticasone/Umeclidin/Vilanter 100-62.5-25 Mcg Ellipta INHALATION Not Given DAILYRT STEPHANIE Folic Acid 1 mg 02/26/25 09:00 02/27/25 17:24 Folic Acid 1 Mg Tablet PO 1 mg DAILY STEPHANIE Administration Doxycycline Hyclate 100 mg/ 100 mls @ 100 mls/hr 02/25/25 16:00 02/28/25 0 4:35 Sodium Chloride IVPB 03/02/25 04:59 Infused Q12H STEPHANIE Infusion Loratadine 10 mg 02/26/25 09:00 02/27/25 15:48 Loratadine 10 Mg Tablet PO Not Given DAILY STEPHANIE Lorazepam 2 mg 02/25/25 21:17 02/27/25 23:02 Lorazepam (*Crx) 1 Mg Tablet PO 2 mg Q2H PRN Administration CIWA 8-10 Lorazepam 2 mg 02/27/25 07:29 Lorazepam Inj (*Crx) 2 Mg/Ml Vial IV PUSH Q1H PRN CIWA > 15 Lorazepam 1 mg 02/27/25 07:29 02/28/25 04:06 Lorazepam Inj (*Crx) 2 Mg/Ml Vial IV PUSH 1 mg Q1H PRN Administration CIWA 11-15 Losartan Potassium 25 mg 02/26/25 09:00 02/27/25 17:41 Losartan Potassium 25 Mg Tablet BY MOUTH 25 mg DAILY STEPHANIE Administration Methylprednisolone Sodium Succinate 60 mg 02/28/25 09:00 Methylprednisolone Sod Succ 125 Mg Vial IV PUSH QAM STEPHANIE Thiamine HCl 100 mg 02/26/25 09:00 02/27/25 17:24 Thiamine Hcl 100 Mg Tablet PO 100 mg DAILY STEPHANIE Administration Radiology Results: ITS Impressions Chest X-Ray 02/25/25 11:04 IMPRESSION: 1. Possible small developing consolidation along the left heart border. Labs Labs: Laboratory Results - last 24 hr 02/27/25 02/27/25 02/28/25 11:46 20:22 03:30 WBC 21.9 H RBC 3.95 L Hgb 12.0 L Hct 37.4 L MCV 94.7 MCH 30.4 MCHC 32.1 RDW 14.1 Plt Count 292 MPV 10.1 Sodium 139 Potassium 4.2 Chloride 108 H Carbon Dioxide 27 Anion Gap 4 BUN 22 H D Creatinine 0.75 Estim Creat Clear Calc 55 Estimated GFR > 60 Glucose 130 H POC Capillary Glucose 156 H 126 H Calcium 9.1 Magnesium 1.9 Total Bilirubin 0.4 AST 49 ALT 34 Alkaline Phosphatase 34 L Total Protein 6.0 L Albumin 3.2 L
[2025-02-28] MEDS: FOLIC ACID 1 MG TABLET PO (09:39)
[2025-02-28] MEDS: LOSARTAN POTASSIUM 25 MG TABLET BY MOUTH (09:39)
[2025-02-28] MEDS: LORATADINE 10 MG TABLET PO (09:39)
[2025-02-28] MEDS: chlordiazePOXIDE (*CRX) 25 MG CAPSULE PO ×2 (09:39→23:57)
[2025-02-28] MEDS: OMEGA 3 POLYUNSAT FATTY ACIDS 1 GM CAP PO (09:39)
[2025-02-28] MEDS: FAMOTIDINE 20 MG/2 ML VIAL IV PUSH ×2 (09:39→21:14)
[2025-02-28] MEDS: THIAMINE HCL 100 MG TABLET PO (09:39)
[2025-02-28] MEDS: ASPIRIN 81 MG CHEWABLE TABLET PO (09:39)
[2025-02-28] MEDS: FLUTICASONE/UMECLIDIN/VILANTER 100-62.5-25 MCG ELLIPTA 1 PUFF INHALATION (10:01)
--- NOTE | 2025-02-28 10:24 | PC.NURSE ---
pt is unhappy with his sitter, pt told sitter is there for his safety and will remain at bedside with him
--- NOTE | 2025-02-28 14:52 | PC.NURSE ---
pt refuses to take librium, incontinent of bladder, complete bed change, paper top applied and depend, urinal emptied and returned to pt, call light on lap, bed rails up, sitter in room
--- NOTE | 2025-02-28 15:34 | PC.NURSE ---
pt attempting to climb over rails, pulled off bandages, attempting to pull out iv
--- NOTE | 2025-02-28 15:46 | PC.NURSE ---
pt pulled off tele monitor, refuses to let nurse put it back on, dr wray called for orders, waiting ammonia still operator back
--- NOTE | 2025-02-28 17:00 | PC.NURSE ---
sitter in room, pt yelling out and attempting to kick legs over side, pt states he is having trouble breathing, pulse ox applied and steady at 96% on RA, respirations of 34, RT called to come evaluate
[2025-02-28] MEDS: LORazepam INJ (*CRX) 2 MG/ML VIAL IV PUSH (21:14)
[2025-02-28] MEDS: ENOXAPARIN 40 MG/0.4 ML SYRINGE SUB-Q (21:14)
[2025-03-01] VITALS (14 sets, daily range): BP systolic 138–179; BP diastolic 78–93; PULSE 82–120; RESP 18–28; TEMP 36.4–36.7; O2SAT 94–99; BMI 17.6
--- NOTE | 2025-03-01 00:46 | PC.NURSE ---
Patient keeps pulling off telemetry leads. Leads and stickers have been replaced multiple times and patient continues to rip them off even following administration of 2 mg ativan IVP and librium. Patient continues to be restless. Leads have been re-applied again and attempted to re-direct patient with little success. Provider notified.
[2025-03-01] MEDS: DOXYCYCLINE IV 100 MG in SODIUM CHLORIDE 0.9% IV 100 ML IVPB (04:05)
[2025-03-01 04:26] LABS: Hematocrit 39.7 % (42.0-52.0); Hemoglobin 13.0 g/dL (14.0-18.0); Mean Corpuscular HGB Conc 32.7 g/dl (32-36); Mean Corpuscular Hemoglobin 30.6 pg (26-34); Mean Corpuscular Volume 93.4 fl (80-100); Platelet Count Result 275 k/mm3 (150-375); Red Blood Count 4.25 M/mm3 (4.6-6.20); White Blood Count 12.8 K/mm3 (4.5-10.0)
[2025-03-01] MEDS: LORazepam INJ (*CRX) 2 MG/ML VIAL IV PUSH ×10 (04:48→21:46)
[2025-03-01 04:49] LABS: Alanine Aminotransferase 38 U/L (6-50); Albumin Level 3.6 g/dL (3.5-5.1); Alkaline Phosphatase 34 U/L (38-126); Anion Gap 4 mmol/L (4-12); Aspartate Amino Transferase 49 U/L (17-59); Bilirubin,Total 0.6 mg/dL (0.2-1.3); Blood Urea Nitrogen 22 mg/dL (9-20); Calcium 9.2 mg/dL (8.4-10.2); Carbon Dioxide 30 mmol/L (22-30); Chloride 107 mmol/L (98-107); Estimated CRCL calculation 51 ml/min; Estimated Glomerular Filt Rate > 60; Glucose 92 mg/dL (65-110); Magnesium 2.1 mg/dL (1.6-2.3); Potassium 3.6 mmol/L (3.4-5.0); Sodium 141 mmol/L (137-145); Total Protein 6.5 g/dL (6.3-8.2)
[2025-03-01] MEDS: chlordiazePOXIDE (*CRX) 25 MG CAPSULE PO ×3 (07:31→17:39)
[2025-03-01] MEDS: FAMOTIDINE 20 MG/2 ML VIAL IV PUSH ×2 (07:32→21:46)
[2025-03-01] MEDS: LORATADINE 10 MG TABLET PO (07:54)
[2025-03-01] MEDS: FOLIC ACID 1 MG TABLET PO (07:54)
[2025-03-01] MEDS: ASPIRIN 81 MG CHEWABLE TABLET PO (07:54)
[2025-03-01] MEDS: LOSARTAN POTASSIUM 25 MG TABLET BY MOUTH (07:54)
[2025-03-01] MEDS: THIAMINE HCL 100 MG TABLET PO (07:54)
[2025-03-01] MEDS: LORazepam INJ (*CRX) 2 MG/ML VIAL 1 MG IV PUSH (09:53)
--- NOTE | 2025-03-01 10:24 | P.PNIM_ITS ---
Assessment and Plan Assessment and Plan (1) Acute exacerbation of chronic obstructive pulmonary disease: Code(s): J44.1 - Chronic obstructive pulmonary disease with (acute) exacerbation Status: Acute Assessment and Plan: Patient is saturating well on room air Continue bronchodilators, fluticasone Continue doxycycline. (2) Agitation: Code(s): R45.1 - Restlessness and agitation Status: Acute Assessment and Plan: Likely combination of alcohol withdrawal and delirium Continue Librium Off Precedex P.r.n. Ativan Monitor (3) Alcohol withdrawal: Code(s): F10.939 - Alcohol use, unspecified with withdrawal, unspecified Status: Acute Assessment and Plan: Continue in thiamine and folic acid (4) Delirium: Code(s): R41.0 - Disorientation, unspecified Status: Acute Assessment and Plan: See above (5) CAD (coronary artery disease): Code(s): I25.10 - Atherosclerotic heart disease of [place] coronary artery without angina pectoris Status: Acute Assessment and Plan: Continue aspirin losartan and statin (6) HTN (hypertension): Qualifiers: Hypertension type: primary hypertension Qualified Code(s): I10 - Essential (primary) hypertension Code(s): I10 - Essential (primary) hypertension Status: Chronic Assessment and Plan: Continue losartan Plan DVT prophylaxis -Lovenox Stress ulcer prophylaxis -Pepcid Nutrition -diet ordered Code Status - Full Code Subjective Date/time seen: 03/01/25 10:24 Interval history: 74-year-old male with a past medical history of Encephalomalacia, HTN, HLD, thoracic aortic aneurysm, CVA, COPD, alcohol abuse presents to the ED on 02/25/2025 with complaints of increased dyspnea. 03/01: Patient was seen during the morning rounds today. Patient is a slight withdrawal. Requiring soft restraint. No shortness breath or chest pain. Review of Systems Review of Systems: All systems reviewed & are unremarkable except as noted in HPI and below ROS unobtainable: Yes unobtainable due to medical condition and unobtainable due to mental status Exam Narrative: General: Pt is drowsy Lungs/Chest: Trachea central course BS B/L, No crackles or wheezing. Cardiac: RRR. Normal S1 S2. No murmurs Circulation: Pedal pulses are intact and symmetrical. Abdomen: Normal bowel sounds.. Soft. NT. ND. Extremities: No clubbing, cyanosis or edema. Warm : Samson in place Neurologic: Patient is sleeping but wakes up on stimulation, resist exam is and does not follow commands. He is moving all 4 extremities and would not allow examination of his pupils Skin: No Rash Objective Data Vital Signs Vital Signs: Vital Signs - 24 hr 02/28/25 12:00 02/28/25 12:00 02/28/25 12:03 Temperature 36.6 C Pulse Rate 88 57 L Pulse Rate [Bilateral Pedal (Dorsalis Pedis) Palpation] Pulse Rate [Monitor] 88 Respiratory Rate 18 Blood Pressure 115/76 115/76 Pulse Oximetry 93 02/28/25 14:00 02/28/25 16:00 02/28/25 16:00 Temperature Pulse Rate 88 96 Pulse Rate [Bilateral Pedal (Dorsalis Pedis) Palpation] Pulse Rate [Monitor] 96 Respiratory Rate Blood Pressure Pulse Oximetry 02/28/25 16:56 02/28/25 18:00 02/28/25 20:00 Temperature 36.7 C 36.3 C L Pulse Rate 110 H 92 106 H Pulse Rate [Bilateral Pedal (Dorsalis Pedis) Palpation] Pulse Rate [Monitor] Respiratory Rate 20 28 H Blood Pressure 152/85 H 154/88 H Pulse Oximetry 97 95 02/28/25 20:00 02/28/25 20:00 02/28/25 22:00 Temperature 36.7 C Pulse Rate 118 H 106 H Pulse Rate [Bilateral Pedal (Dorsalis Pedis) Palpation] 118 H Pulse Rate [Monitor] 118 H Respiratory Rate 25 H Blood Pressure 134/95 H Pulse Oximetry 100 02/28/25 22:00 02/28/25 23:40 03/01/25 00:00 Temperature 36.7 C Pulse Rate 101 H 120 H Pulse Rate [Bilateral Pedal (Dorsalis Pedis) Palpation] Pulse Rate [Monitor] 121 H Respiratory Rate 28 H Blood Pressure 179/85 H Pulse Oximetry 96 03/01/25 00:00 03/01/25 02:00 03/01/25 04:00 Temperature 36.7 C Pulse Rate 93 101 H 89 Pulse Rate [Bilateral Pedal (Dorsalis Pedis) Palpation] Pulse Rate [Monitor] Respiratory Rate 24 H Blood Pressure 138/81 Pulse Oximetry 96 03/01/25 04:00 03/01/25 04:00 03/01/25 06:00 Temperature Pulse Rate 85 107 H Pulse Rate [Bilateral Pedal (Dorsalis Pedis) Palpation] Pulse Rate [Monitor] 115 H Respiratory Rate Blood Pressure Pulse Oximetry 03/01/25 08:00 Temperature 36.6 C Pulse Rate 109 H Pulse Rate [Bilateral Pedal (Dorsalis Pedis) Palpation] Pulse Rate [Monitor] Respiratory Rate 24 H Blood Pressure 169/93 H Pulse Oximetry 99 Intake/Output Intake/Output: Intake & Output 02/26/25 02/27/25 02/28/25 03/01/25 23:59 23:59 23:59 23:59 Intake Total 1420 537.2 250 0 Output Total 600 550 Balance 1420 -62.8 -300 0 Meds/Results Medications: Active Medications Generic Name Dose Route Start Last Admin Trade Name Freq PRN Reason Stop Dose Admin Albuterol/Ipratropium 3 ml 02/27/25 09:18 Ipratropium 0.5 Mg/Albuterol Sulfate 2.5 Mg (Base) Ampul.Neb 3 Ml INHALATION Q6HRT PRN Wheezing Aspirin 81 mg 02/26/25 08:00 03/01/25 07:54 Aspirin 81 Mg Chewable Tablet PO 81 mg DAILY@0800 STEPHANIE Administration Atorvastatin Calcium 20 mg 02/25/25 21:00 02/28/25 21:15 Atorvastatin 20 Mg Tablet PO Not Given QHS STEPHANIE Calcium Carbonate 200 mg 02/25/25 16:43 02/25/25 23:14 Calcium Carbonate (Tums) 500 Mg (200 Mg Elemental) PO 200 mg Q6H PRN Administration Indigestion Chlordiazepoxide HCl 25 mg 02/26/25 00:00 03/01/25 07:31 Chlordiazepoxide (*Crx) 25 Mg Capsule PO 25 mg Q6HR STEPHANIE Administration Enoxaparin Sodium 40 mg 02/25/25 21:00 02/28/25 21:14 Enoxaparin 40 Mg/0.4 Ml Syringe SUB-Q 40 mg HS STEPHANIE Administration Famotidine 20 mg 02/26/25 09:00 03/01/25 07:32 Famotidine 20 Mg/2 Ml Vial IV PUSH 20 mg Q12HR STEPHANIE Administration Fish Oil 1 gm 02/25/25 21:00 03/01/25 07:54 [place] 3 Polyunsat Fatty Acids 1 Gm Cap PO Not Given Q12HR STEPHANIE Fluticasone/Umeclidinium/Vilanterol 1 puff 02/26/25 08:00 02/28/25 10:01 Fluticasone/Umeclidin/Vilanter 100-62.5-25 Mcg Ellipta INHALATION 1 puff DAILYRT STEPHANIE Administration Folic Acid 1 mg 02/26/25 09:00 03/01/25 07:54 Folic Acid 1 Mg Tablet PO 1 mg DAILY STEPHANIE Administration Doxycycline Hyclate 100 mg/ 100 mls @ 100 mls/hr 02/25/25 16:00 03/01/25 04:05 Sodium Chloride IVPB 03/02/25 04:59 100 mls/hr Q12H STEPHANIE Administration Thiamine HCl 75 mg/ Folic Acid 1,012.95 mls @ 100 mls/hr 03/01/25 10:00 03/01/25 09:54 1 mg/ Magnesium Sulfate 1 gm/ IV CONT 100 mls/hr Multivitamins 5 ml/ .Q10H8M STEPHANIE Administration Multivitamins 5 ml/ Dextrose/ Sodium Chloride Loratadine 10 mg 02/26/25 09:00 03/01/25 07:54 Loratadine 10 Mg Tablet PO 10 mg DAILY STEPHANIE Administration Lorazepam 2 mg 02/25/25 21:17 02/27/25 23:02 Lorazepam (*Crx) 1 Mg Tablet PO 2 mg Q2H PRN Administration CIWA 8-10 Lorazepam 2 mg 02/27/25 07:29 03/01/25 07:32 Lorazepam Inj (*Crx) 2 Mg/Ml Vial IV PUSH 2 mg Q1H PRN Administration CIWA > 15 Lorazepam 1 mg 02/27/25 07:29 03/01/25 09:53 Lorazepam Inj (*Crx) 2 Mg/Ml Vial IV PUSH 1 mg Q1H PRN Administration CIWA 11-15 Losartan Potassium 25 mg 02/26/25 09:00 03/01/25 07:54 Losartan Potassium 25 Mg Tablet BY MOUTH 25 mg DAILY STEPHANIE Administration Thiamine HCl 100 mg 02/26/25 09:00 03/01/25 07:54 Thiamine Hcl 100 Mg Tablet PO 100 mg DAILY STEPHANIE Administration Radiology Results: ITS Impressions Chest X-Ray 02/25/25 11:04 IMPRESSION: 1. Possible small developing consolidation along the left heart border. Labs Labs: Laboratory Results - last 24 hr 02/28/25 02/28/25 02/28/25 11:12 15:22 23:43 WBC RBC Hgb Hct MCV MCH MCHC RDW Plt Count MPV Sodium Potassium Chloride Carbon Dioxide Anion Gap BUN Creatinine Estim Creat Clear Calc Estimated GFR Glucose POC Capillary Glucose 98 118 H 99 Calcium Magnesium Total Bilirubin AST ALT Alkaline Phosphatase Total Protein Albumin 03/01/25 03:51 WBC 12.8 H RBC 4.25 L Hgb 13.0 L Hct 39.7 L MCV 93.4 MCH 30.6 MCHC 32.7 RDW 13.9 Plt Count 275 MPV 10.0 Sodium 141 Potassium 3.6 Chloride 107 Carbon Dioxide 30 Anion Gap 4 BUN 22 H Creatinine 0.79 Estim Creat Clear Calc 51 Estimated GFR > 60 Glucose 92 POC Capillary Glucose Calcium 9.2 Magnesium 2.1 Total Bilirubin 0.6 AST 49 ALT 38 Alkaline Phosphatase 34 L Total Protein 6.5 Albumin 3.6 Quality VTE Prophylaxis VTE prophylaxis: pharmacologic ordered
[2025-03-01] MEDS: DOXYCYCLINE HYCLATE 100 MG TABLET PO (17:39)
[2025-03-01] MEDS: ENOXAPARIN 40 MG/0.4 ML SYRINGE SUB-Q (21:46)
[2025-03-02] VITALS (12 sets, daily range): BP systolic 121–155; BP diastolic 58–95; PULSE 73–99; RESP 20–28; TEMP 36.3–36.6; O2SAT 95–98
[2025-03-02] MEDS: chlordiazePOXIDE (*CRX) 25 MG CAPSULE PO ×3 (00:26→16:27)
[2025-03-02] MEDS: LORazepam INJ (*CRX) 2 MG/ML VIAL IV PUSH ×2 (00:26→06:15)
[2025-03-02] MEDS: DOXYCYCLINE HYCLATE 100 MG TABLET PO ×2 (00:26→16:28)
[2025-03-02 04:28] LABS: Hematocrit 38.4 % (42.0-52.0); Hemoglobin 12.7 g/dL (14.0-18.0); Mean Corpuscular HGB Conc 33.1 g/dl (32-36); Mean Corpuscular Hemoglobin 30.7 pg (26-34); Mean Corpuscular Volume 92.8 fl (80-100); Platelet Count Result 248 k/mm3 (150-375); Red Blood Count 4.14 M/mm3 (4.6-6.20); White Blood Count 10.6 K/mm3 (4.5-10.0)
[2025-03-02 04:50] LABS: Alanine Aminotransferase 35 U/L (6-50); Albumin Level 3.4 g/dL (3.5-5.1); Alkaline Phosphatase 34 U/L (38-126); Anion Gap 4 mmol/L (4-12); Aspartate Amino Transferase 44 U/L (17-59); Bilirubin,Total 0.8 mg/dL (0.2-1.3); Blood Urea Nitrogen 20 mg/dL (9-20); Calcium 8.6 mg/dL (8.4-10.2); Carbon Dioxide 25 mmol/L (22-30); Chloride 111 mmol/L (98-107); Estimated CRCL calculation 56 ml/min; Estimated Glomerular Filt Rate > 60; Glucose 126 mg/dL (65-110); Magnesium 2.4 mg/dL (1.6-2.3); Potassium 3.4 mmol/L (3.4-5.0); Sodium 140 mmol/L (137-145); Total Protein 6.3 g/dL (6.3-8.2)
--- NOTE | 2025-03-02 11:51 | P.PNIM_ITS ---
Assessment and Plan Assessment and Plan (1) Acute exacerbation of chronic obstructive pulmonary disease: Code(s): J44.1 - Chronic obstructive pulmonary disease with (acute) exacerbation Status: Acute Assessment and Plan: Patient is saturating well on room air Continue bronchodilators, fluticasone (2) Agitation: Code(s): R45.1 - Restlessness and agitation Status: Acute Assessment and Plan: Likely combination of alcohol withdrawal and delirium Continue Librium Off Precedex P.r.n. Ativan Monitor (3) Alcohol withdrawal: Code(s): F10.939 - Alcohol use, unspecified with withdrawal, unspecified Status: Acute Assessment and Plan: Continue in thiamine and folic acid (4) Delirium: Code(s): R41.0 - Disorientation, unspecified Status: Acute Assessment and Plan: See above (5) CAD (coronary artery disease): Code(s): I25.10 - Atherosclerotic heart disease of [place] coronary artery without angina pectoris Status: Acute Assessment and Plan: Continue aspirin losartan and statin (6) HTN (hypertension): Qualifiers: Hypertension type: primary hypertension Qualified Code(s): I10 - Essential (primary) hypertension Code(s): I10 - Essential (primary) hypertension Status: Chronic Assessment and Plan: Continue losartan Plan DVT prophylaxis -Lovenox Stress ulcer prophylaxis -Pepcid Nutrition -diet ordered Code Status - Full Code Subjective Date/time seen: 03/02/25 11:51 Interval history: 74-year-old male with a past medical history of Encephalomalacia, HTN, HLD, thoracic aortic aneurysm, CVA, COPD, alcohol abuse presents to the ED on 02/25/2025 with complaints of increased dyspnea. 03/01: Patient was seen during the morning rounds today. Patient is a slight withdrawal. Requiring soft restraint. No shortness breath or chest pain. 03/02: Patient was seen during the morning rounds today. Less withdrawal, no sob or chest pain Review of Systems Review of Systems: All systems reviewed & are unremarkable except as noted in HPI and below ROS unobtainable: Yes unobtainable due to medical condition and unobtainable due to mental status Exam Narrative: General: Pt is drowsy Lungs/Chest: Trachea central course BS B/L, No crackles or wheezing. Cardiac: RRR. Normal S1 S2. No murmurs Circulation: Pedal pulses are intact and symmetrical. Abdomen: Normal bowel sounds.. Soft. NT. ND. Extremities: No clubbing, cyanosis or edema. Warm : Samson in place Neurologic: Patient is sleeping but wakes up on stimulation, resist exam is and does not follow commands. He is moving all 4 extremities and would not allow examination of his pupils Skin: No Rash Objective Data Vital Signs Vital Signs: Vital Signs - 24 hr 03/01/25 12:00 03/01/25 12:00 03/01/25 14:00 Temperature 36.5 C Pulse Rate 91 108 H 108 H Pulse Rate [Monitor] Respiratory Rate 18 Blood Pressure 164/78 H Pulse Oximetry 96 03/01/25 16:00 03/01/25 16:00 03/01/25 18:00 Temperature 36.5 C Pulse Rate 88 103 H 108 H Pulse Rate [Monitor] Respiratory Rate 18 Blood Pressure 149/88 H Pulse Oximetry 95 03/01/25 19:52 03/01/25 20:00 03/01/25 20:00 Temperature 36.4 C Pulse Rate 115 H 102 H Pulse Rate [Monitor] 90 Respiratory Rate 20 Blood Pressure 150/91 H Pulse Oximetry 94 03/01/25 22:00 03/02/25 00:00 03/02/25 00:00 Temperature 36.6 C Pulse Rate 93 85 96 Pulse Rate [Monitor] Respiratory Rate 20 Blood Pressure 143/95 H Pulse Oximetry 95 03/02/25 02:00 03/02/25 03:59 03/02/25 04:00 Temperature Pulse Rate 73 99 Pulse Rate [Monitor] 97 Respiratory Rate Blood Pressure Pulse Oximetry 03/02/25 04:00 03/02/25 06:00 03/02/25 08:00 Temperature 36.4 C L 36.4 C Pulse Rate 83 93 79 Pulse Rate [Monitor] Respiratory Rate 20 26 H Blood Pressure 139/69 155/86 H Pulse Oximetry 95 97 Intake/Output Intake/Output: Intake & Output 02/27/25 02/28/25 03/01/25 03/02/25 23:59 23:59 23:59 23:59 Intake Total 537.2 250 1087.95 981.7 Output Total 600 550 Balance -62.8 -300 1087.95 981.7 Meds/Results Medications: Active Medications Generic Name Dose Route Start Last Admin Trade Name Freq PRN Reason Stop Dose Admin Albuterol/Ipratropium 3 ml 02/27/25 09:18 Ipratropium 0.5 Mg/Albuterol Sulfate 2.5 Mg (Base) Ampul.Neb 3 Ml INHALATION Q6HRT PRN Wheezing Aspirin 81 mg 02/26/25 08:00 03/01/25 07:54 Aspirin 81 Mg Chewable Tablet PO 81 mg DAILY@0800 STEPHANIE Administration Atorvastatin Calcium 20 mg 02/25/25 21:00 03/01/25 21:29 Atorvastatin 20 Mg Tablet PO Not Given QHS STEPHANIE Calcium Carbonate 200 mg 02/25/25 16:43 02/25/25 23:14 Calcium Carbonate (Tums) 500 Mg (200 Mg Elemental) PO 200 mg Q6H PRN Administration Indigestion Chlordiazepoxide HCl 25 mg 02/26/25 00:00 03/02/25 10:11 Chlordiazepoxide (*Crx) 25 Mg Capsule PO 25 mg Q6HR STEPHANIE Administration Enoxaparin Sodium 40 mg 02/25/25 21:00 03/01/25 21:46 Enoxaparin 40 Mg/0.4 Ml Syringe SUB-Q 40 mg HS STEPHANIE Administration Famotidine 20 mg 02/26/25 09:00 03/01/25 21:46 Famotidine 20 Mg/2 Ml Vial IV PUSH 20 mg Q12HR STEPHANIE Administration Fish Oil 1 gm 02/25/25 21:00 03/01/25 20:08 [place] 3 Polyunsat Fatty Acids 1 Gm Cap PO Not Given Q12HR STEPHANIE Fluticasone/Umeclidinium/Vilanterol 1 puff 02/26/25 08:00 03/02/25 10:41 Fluticasone/Umeclidin/Vilanter 100-62.5-25 Mcg Ellipta INHALATION Not Given DAILYRT STEPHANIE Folic Acid 1 mg 02/26/25 09:00 03/01/25 07:54 Folic Acid 1 Mg Tablet PO 1 mg DAILY STEPHANIE Administration Thiamine HCl 75 mg/ Folic Acid 1,012.95 mls @ 100 mls/hr 03/01/25 10:00 03/02/25 06:35 1 mg/ Magnesium Sulfate 1 gm/ IV CONT 100 mls/hr Multivitamins 5 ml/ .Q10H8M STEPHANIE Administration Multivitamins 5 ml/ Dextrose/ Sodium Chloride Loratadine 10 mg 02/26/25 09:00 03/01/25 07:54 Loratadine 10 Mg Tablet PO 10 mg DAILY STEPHANIE Administration Lorazepam 2 mg 02/25/25 21:17 02/27/25 23:02 Lorazepam (*Crx) 1 Mg Tablet PO 2 mg Q2H PRN Administration CIWA 8-10 Lorazepam 2 mg 02/27/25 07:29 03/02/25 06:15 Lorazepam Inj (*Crx) 2 Mg/Ml Vial IV PUSH 2 mg Q1H PRN Administration CIWA > 15 Lorazepam 1 mg 02/27/25 07:29 03/01/25 09:53 Lorazepam Inj (*Crx) 2 Mg/Ml Vial IV PUSH 1 mg Q1H PRN Administration CI 11-15 Losartan Potassium 25 mg 02/26/25 09:00 03/01/25 07:54 Losartan Potassium 25 Mg Tablet BY MOUTH 25 mg DAILY STEPHANIE Administration Thiamine HCl 100 mg 02/26/25 09:00 03/01/25 07:54 Thiamine Hcl 100 Mg Tablet PO 100 mg DAILY STEPHANIE Administration Radiology Results: ITS Impressions Chest X-Ray 02/25/25 11:04 IMPRESSION: 1. Possible small developing consolidation along the left heart border. Labs Labs: Laboratory Results - last 24 hr 03/01/25 03/01/25 03/02/25 12:04 18:32 00:54 WBC RBC Hgb Hct MCV MCH MCHC RDW Plt Count MPV Sodium Potassium Chloride Carbon Dioxide Anion Gap BUN Creatinine Estim Creat Clear Calc Estimated GFR Glucose POC Capillary Glucose 107 H 147 H 152 H Calcium Magnesium Total Bilirubin AST ALT Alkaline Phosphatase Total Protein Albumin 03/02/25 04:19 WBC 10.6 H RBC 4.14 L Hgb 12.7 L Hct 38.4 L MCV 92.8 MCH 30.7 MCHC 33.1 RDW 13.7 Plt Count 248 MPV 9.5 Sodium 140 Potassium 3.4 Chloride 111 H Carbon Dioxide 25 Anion Gap 4 BUN 20 Creatinine 0.71 Estim Creat Clear Calc 56 Estimated GFR > 60 Glucose 126 H POC Capillary Glucose Calcium 8.6 Magnesium 2.4 H Total Bilirubin 0.8 AST 44 ALT 35 Alkaline Phosphatase 34 L Total Protein 6.3 Albumin 3.4 L Quality VTE Prophylaxis VTE prophylaxis: pharmacologic ordered
[2025-03-02] MEDS: LORATADINE 10 MG TABLET PO (16:27)
[2025-03-02] MEDS: FAMOTIDINE 20 MG/2 ML VIAL IV PUSH ×2 (16:27→21:04)
[2025-03-02] MEDS: FOLIC ACID 1 MG TABLET PO (16:28)
[2025-03-02] MEDS: THIAMINE HCL 100 MG TABLET PO (16:28)
[2025-03-02] MEDS: ASPIRIN 81 MG CHEWABLE TABLET PO (16:28)
[2025-03-02] MEDS: LOSARTAN POTASSIUM 25 MG TABLET BY MOUTH (16:28)
[2025-03-02] MEDS: SODIUM CHLORIDE 0.9% IV 1,000 ML 75 ML IV CONT (16:42)
[2025-03-02] MEDS: ENOXAPARIN 40 MG/0.4 ML SYRINGE SUB-Q (21:04)
[2025-03-03] VITALS (12 sets, daily range): BP systolic 114–153; BP diastolic 76–96; PULSE 71–101; RESP 18–22; TEMP 36.3–36.7; O2SAT 97–100
[2025-03-03] MEDS: DEXTROSE 5%/0.9% SOD CHL 1,000 ML 75 ML IV CONT ×2 (00:16→14:51)
[2025-03-03 04:33] LABS: Hematocrit 40.8 % (42.0-52.0); Hemoglobin 13.4 g/dL (14.0-18.0); Mean Corpuscular HGB Conc 32.8 g/dl (32-36); Mean Corpuscular Hemoglobin 30.3 pg (26-34); Mean Corpuscular Volume 92.3 fl (80-100); Platelet Count Result 212 k/mm3 (150-375); Red Blood Count 4.42 M/mm3 (4.6-6.20); White Blood Count 9.7 K/mm3 (4.5-10.0)
--- NOTE | 2025-03-03 08:00 | PC.NURSE ---
RN at bedside for morning assessment. Pt unable to comprehend questions. RN unable to perform CIWA at this time
[2025-03-03] MEDS: FLUTICASONE/UMECLIDIN/VILANTER 100-62.5-25 MCG ELLIPTA 1 PUFF INHALATION (08:22)
--- NOTE | 2025-03-03 09:03 | PM.IMPN2 ---
Assessment and Plan Assessment and Plan (1) Acute exacerbation of chronic obstructive pulmonary disease: Code(s): J44.1 - Chronic obstructive pulmonary disease with (acute) exacerbation Status: Acute Assessment and Plan: Patient is saturating well on room air Continue bronchodilators, fluticasone (2) Agitation: Code(s): R45.1 - Restlessness and agitation Status: Acute Assessment and Plan: Likely combination of alcohol withdrawal and delirium Continue Librium Off Precedex P.r.n. Ativan Monitor (3) Alcohol withdrawal: Code(s): F10.939 - Alcohol use, unspecified with withdrawal, unspecified Status: Acute Assessment and Plan: Continue in thiamine and folic acid (4) Delirium: Code(s): R41.0 - Disorientation, unspecified Status: Acute Assessment and Plan: See above (5) CAD (coronary artery disease): Code(s): I25.10 - Atherosclerotic heart disease of [place] coronary artery without angina pectoris Status: Acute Assessment and Plan: Continue aspirin losartan and statin (6) HTN (hypertension): Qualifiers: Hypertension type: primary hypertension Qualified Code(s): I10 - Essential (primary) hypertension Code(s): I10 - Essential (primary) hypertension Status: Chronic Assessment and Plan: Continue losartan 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 Will continue physical therapy DVT prophylaxis -Lovenox Stress ulcer prophylaxis -Pepcid Nutrition -diet ordered Code Status - Full Code Subjective Date/time seen: 03/03/25 09:03 Interval history: 74-year-old male with a past medical history of Encephalomalacia, HTN, HLD, thoracic aortic aneurysm, CVA, COPD, alcohol abuse presents to the ED on 02/25/2025 with complaints of increased dyspnea. 03/01: Patient was seen during the morning rounds today. Patient is a slight withdrawal. Requiring soft restraint. No shortness breath or chest pain. 03/02: Patient was seen during the morning rounds today. Less withdrawal, no sob or chest pain 03/03: Patient was seen during morning rounds today. No new overnight complaints. No shortness of breath or chest pain. Withdrawal is better. Review of Systems Review of Systems: All systems reviewed & are unremarkable except as noted in HPI and below ROS unobtainable: Yes unobtainable due to medical condition and unobtainable due to mental status Exam Narrative: General: Pt is drowsy Lungs/Chest: Trachea central course BS B/L, No crackles or wheezing. Cardiac: RRR. Normal S1 S2. No murmurs Circulation: Pedal pulses are intact and symmetrical. Abdomen: Normal bowel sounds.. Soft. NT. ND. Extremities: No clubbing, cyanosis or edema. Warm : Samson in place Neurologic: Patient is sleeping but wakes up on stimulation, resist exam is and does not follow commands. He is moving all 4 extremities and would not allow examination of his pupils Skin: No Rash Objective Data Vital Signs Vital Signs: Vital Signs - 24 hr 03/02/25 12:00 03/02/25 12:00 03/02/25 14:00 Temperature 36.5 C Pulse Rate 97 88 84 Pulse Rate [Monitor] Respiratory Rate 28 H Blood Pressure 121/58 L Pulse Oximetry 96 Oxygen Delivery 03/02/25 16:00 03/02/25 16:00 03/02/25 18:00 Temperature 36.4 C Pulse Rate 76 82 92 Pulse Rate [Monitor] Respiratory Rate 24 H Blood Pressure 126/74 Pulse Oximetry 98 Oxygen Delivery 03/02/25 20:00 03/02/25 20:00 03/02/25 20:00 Temperature 36.3 C L Pulse Rate 86 Pulse Rate [Monitor] 87 Respiratory Rate 20 Blood Pressure 134/74 Pulse Oximetry 97 Oxygen Delivery Room Air 03/02/25 20:00 03/02/25 22:00 03/03/25 00:00 Temperature 36.4 C L Pulse Rate 87 87 90 Pulse Rate [Monitor] Respiratory Rate 18 Blood Pressure 141/76 H Pulse Oximetry 98 Oxygen Delivery 03/03/25 00:00 03/03/25 00:00 03/03/25 00:00 Temperature Pulse Rate 84 Pulse Rate [Monitor] 84 Respiratory Rate Blood Pressure Pulse Oximetry Oxygen Delivery Room Air 03/03/25 02:00 03/03/25 04:00 03/03/25 04:00 Temperature Pulse Rate 74 90 Pulse Rate [Monitor] Respiratory Rate Blood Pressure Pulse Oximetry Oxygen Delivery Room Air 03/03/25 04:00 03/03/25 04:00 03/03/25 06:00 Temperature 36.3 C L Pulse Rate 78 71 Pulse Rate [Monitor] 90 Respiratory Rate 18 Blood Pressure 138/76 Pulse Oximetry 100 Oxygen Delivery 03/03/25 08:00 03/03/25 08:22 Temperature 36.3 C L Pulse Rate 94 77 Pulse Rate [Monitor] Respiratory Rate 20 20 Blood Pressure 145/96 H Pulse Oximetry 98 Oxygen Delivery Intake/Output Intake/Output: Intake & Output 02/28/25 03/01/25 03/02/25 03/03/25 23:59 23:59 23:59 23:59 Intake Total 250 1087.95 981.7 567.5 Output Total 550 Balance -300 1087.95 981.7 567.5 Meds/Results Medications: Active Medications Generic Name Dose Route Start Last Admin Trade Name Freq PRN Reason Stop Dose Admin Albuterol/Ipratropium 3 ml 02/27/25 09:18 Ipratropium 0.5 Mg/Albuterol Sulfate 2.5 Mg (Base) Ampul.Neb 3 Ml INHALATION Q6HRT PRN Wheezing Aspirin 81 mg 02/26/25 08:00 03/02/25 16:28 Aspirin 81 Mg Chewable Tablet PO 81 mg DAILY@0800 STEPHANIE Administration Atorvastatin Calcium 20 mg 02/25/25 21:00 03/02/25 22:08 Atorvastatin 20 Mg Tablet PO Not Given QHS STEPHANIE Calcium Carbonate 200 mg 02/25/25 16:43 02/25/25 23:14 Calcium Carbonate (Tums) 500 Mg (200 Mg Elemental) PO 200 mg Q6H PRN Administration Indigestion Chlordiazepoxide HCl 25 mg 02/26/25 00:00 03/03/25 00:18 Chlordiazepoxide (*Crx) 25 Mg Capsule PO Not Given Q6HR STEPHANIE Dextrose 12.5 gm 03/02/25 23:56 Dextrose 50% 25 Gm/50 Ml Syringe IV PUSH PRN PRN Hypoglycemia Protocol Enoxaparin Sodium 40 mg 02/25/25 21:00 03/02/25 21:04 Enoxaparin 40 Mg/0.4 Ml Syringe SUB-Q 40 mg HS STEPHANIE Administration Famotidine 20 mg 02/26/25 09:00 03/02/25 21:04 Famotidine 20 Mg/2 Ml Vial IV PUSH 20 mg Q12HR STEPHANIE Administration Fish Oil 1 gm 02/25/25 21:00 03/02/25 22:08 [place] 3 Polyunsat Fatty Acids 1 Gm Cap PO Not Given Q12HR STEPHANIE Fluticasone/Umeclidinium/Vilanterol 1 puff 02/26/25 08:00 03/03/25 08:22 Fluticasone/Umeclidin/Vilanter 100-62.5-25 Mcg Ellipta INHALATION 1 puff DAILYRT STEPHANIE Administration Folic Acid 1 mg 02/26/25 09:00 03/02/25 16:28 Folic Acid 1 Mg Tablet PO 1 mg DAILY STEPHANIE Administration Glucagon 1 mg 03/02/25 23:56 Glucagon For Inj 1 Mg Vial IM PRN PRN Hypoglycemia Protocol Glucose 15 gm 03/02/25 23:56 Glucose Oral Gel 15 Gm Of Glucse In 37.5 Gm Tube PO PRN PRN Hypoglycemia Protocol Thiamine HCl 100 mg/ Folic 1,013.2 mls @ 100 mls/hr 03/03/25 09:00 Acid 1 mg/ Magnesium Sulfate 1 IV CONT gm/ Multivitamins 5 ml/ DAILY STEPHANIE Multivitamins 5 ml/ Dextrose/ Lactated Ringer's Dextrose 1,000 mls @ 100 mls/hr 03/02/25 23:56 Dextrose 5% 1,000 Ml IVPB PRN PRN Hypoglycemia Protocol Dextrose/Sodium Chloride 1,000 mls @ 75 mls/hr 03/02/25 23:45 03/03/25 00:16 Dextrose 5% Sodium Chloride 0.9% IV CONT 75 mls/hr .[id number] STEPHANIE Administration Loratadine 10 mg 02/26/25 09:00 03/02/25 16:27 Loratadine 10 Mg Tablet PO 10 mg DAILY STEPHANIE Administration Lorazepam 2 mg 02/25/25 21:17 02/27/25 23:02 Lorazepam (*Crx) 1 Mg Tablet PO 2 mg Q2H PRN Administration CIWA 8-10 Lorazepam 2 mg 02/27/25 07:29 03/02/25 06:15 Lorazepam Inj (*Crx) 2 Mg/Ml Vial IV PUSH 2 mg Q1H PRN Administration CIWA > 15 Lorazepam 1 mg 02/27/25 07:29 03/01/25 09:53 Lorazepam Inj (*Crx) 2 Mg/Ml Vial IV PUSH 1 mg Q1H PRN Administration CIWA 11-15 Losartan Potassium 25 mg 02/26/25 09:00 03/02/25 16:28 Losartan Potassium 25 Mg Tablet BY MOUTH 25 mg DAILY STEPHANIE Administration Thiamine HCl 100 mg 02/26/25 09:00 03/02/25 16:28 Thiamine Hcl 100 Mg Tablet PO 100 mg DAILY STEPHANIE Administration Radiology Results: ITS Impressions Chest X-Ray 02/25/25 11:04 IMPRESSION: 1. Possible small developing consolidation along the left heart border. Labs Labs: Laboratory Results - last 24 hr 03/02/25 03/02/25 03/02/25 11:39 18:14 23:50 WBC RBC Hgb Hct MCV MCH MCHC RDW Plt Count MPV POC Capillary Glucose 101 93 76 03/03/25 03/03/25 03/03/25 03:00 04:28 06:32 WBC 9.7 RBC 4.42 L Hgb 13.4 L Hct 40.8 L MCV 92.3 MCH 30.3 MCHC 32.8 RDW 13.2 Plt Count 212 MPV 9.2 POC Capillary Glucose 97 97 Quality VTE Prophylaxis VTE prophylaxis: pharmacologic ordered
[2025-03-03] MEDS: THIAMINE HCL INJ 100 MG, FOLIC ACID INJ 1 MG, MAGNESIUM SULFATE INJ 1 GM, MULTIVITAMINS... IV CONT (09:50)
[2025-03-03] MEDS: FAMOTIDINE 20 MG/2 ML VIAL IV PUSH ×2 (09:50→20:40)
--- NOTE | 2025-03-03 10:18 | PCNFU ---
Nutrition Follow-Up Complete: Inadequate Oral Intake as related to ETOH Abuse as evidenced by poor po intake. Goal:meet estimated nutritional needs Pt not meeting goal Pt current nutrition is Regular, Ensure shakes BID. Nutrition recommendation: continue with current plan of care Last recorded weight is 49.5 kg. Bowel Motility: +BM 03/03 Labs Reviewed: Hgb:13.4, HCT:40.8 Meds Noted: thiamin, folic acid, MVI Skin: WNL Additional Notes: Pt continues on a regular diet, pt continues to refuse meals and meds. Continue with current plan of care, may need to consider alternative nutrition support if pt is not willing to eat PO Will monitor weight, labs, skin, diet orders, meds every 3 days.
--- NOTE | 2025-03-03 13:29 | PC.NURSE ---
Pt unable to comprehend questions. RN unable to perform CIWA at this time
--- NOTE | 2025-03-03 16:53 | PC.NURSE ---
Pt unable to comprehend questions. RN unable to perform CIWA at this time.
[2025-03-03] MEDS: ENOXAPARIN 40 MG/0.4 ML SYRINGE SUB-Q (20:41)
--- NOTE | 2025-03-03 20:55 | PC.NURSE ---
Pt refused all oral bedtime medications.
[2025-03-04] VITALS (8 sets, daily range): BP systolic 122–163; BP diastolic 73–93; PULSE 82–118; RESP 18–24; TEMP 36.5–36.9; O2SAT 96–100
[2025-03-04] MEDS: LORazepam INJ (*CRX) 2 MG/ML VIAL IV PUSH (00:05)
--- NOTE | 2025-03-04 00:13 | PC.NURSE ---
Pt unable to swallow 0000 dose of librium CIWA score 18, pt punching, kicking and crawling out of bed. Pt depend changed and 2mg of Ativan given per CIWA protocol.
[2025-03-04] MEDS: DEXTROSE 5%/0.9% SOD CHL 1,000 ML 75 ML IV CONT ×2 (04:13→17:26)
[2025-03-04] MEDS: diazePAM INJ (*CRX) 10 MG/2 ML SYRINGE 5 MG IV PUSH (05:46)
--- NOTE | 2025-03-04 08:30 | PM.IMPN2 ---
Assessment and Plan Assessment and Plan (1) Acute exacerbation of chronic obstructive pulmonary disease: Code(s): J44.1 - Chronic obstructive pulmonary disease with (acute) exacerbation Status: Acute Assessment and Plan: Patient is saturating well on room air Continue bronchodilators, fluticasone (2) Agitation: Code(s): R45.1 - Restlessness and agitation Status: Acute Assessment and Plan: Likely combination of alcohol withdrawal and delirium Continue Librium Off Precedex P.r.n. Ativan Monitor (3) Alcohol withdrawal: Code(s): F10.939 - Alcohol use, unspecified with withdrawal, unspecified Status: Acute Assessment and Plan: Continue in thiamine and folic acid (4) Delirium: Code(s): R41.0 - Disorientation, unspecified Status: Acute Assessment and Plan: See above (5) CAD (coronary artery disease): Code(s): I25.10 - Atherosclerotic heart disease of [place] coronary artery without angina pectoris Status: Acute Assessment and Plan: Continue aspirin losartan and statin (6) HTN (hypertension): Qualifiers: Hypertension type: primary hypertension Qualified Code(s): I10 - Essential (primary) hypertension Code(s): I10 - Essential (primary) hypertension Status: Chronic Assessment and Plan: Continue losartan Plan 03/04/2025 Continue current treatment and [facility] scale. 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 03/01: Patient was seen during the morning rounds today. Patient is a slight withdrawal. Requiring soft restraint. No shortness breath or chest pain. 03/02: Patient was seen during the morning rounds today. Less withdrawal, no sob or chest pain 03/03: Patient was seen during morning rounds today. No new overnight complaints. No shortness of breath or chest pain. Withdrawal is better. 03/04/2025 Patient was seen during morning rounds today. Patient is feeling better. No shortness of breath or chest pain. Patient withdrawal is much better. Review of Systems Review of Systems: All systems reviewed & are unremarkable except as noted in HPI and below ROS unobtainable: Yes unobtainable due to medical condition and unobtainable due to mental status Exam Narrative: General: Pt is drowsy Lungs/Chest: Trachea central course BS B/L, No crackles or wheezing. Cardiac: RRR. Normal S1 S2. No murmurs Circulation: Pedal pulses are intact and symmetrical. Abdomen: Normal bowel sounds.. Soft. NT. ND. Extremities: No clubbing, cyanosis or edema. Warm : Samson in place Neurologic: Patient is sleeping but wakes up on stimulation, resist exam is and does not follow commands. He is moving all 4 extremities and would not allow examination of his pupils Skin: No Rash Objective Data Vital Signs Vital Signs: Vital Signs - 24 hr 03/03/25 09:45 03/03/25 10:00 03/03/25 11:57 Temperature 36.4 C Pulse Rate 100 95 Pulse Rate [Monitor] Pulse Rate [Right Radial Palpation] Respiratory Rate 22 H Blood Pressure 153/82 H Pulse Oximetry Oxygen Delivery Room Air 03/03/25 12:00 03/03/25 12:00 03/03/25 14:00 Temperature Pulse Rate 95 98 98 Pulse Rate [Monitor] Pulse Rate [Right Radial Palpation] Respiratory Rate 22 H Blood Pressure Pulse Oximetry 98 Oxygen Delivery Room Air 03/03/25 16:08 03/03/25 20:00 03/03/25 20:00 Temperature 36.7 C Pulse Rate 101 H Pulse Rate [Monitor] 100 Pulse Rate [Right Radial Palpation] Respiratory Rate 20 Blood Pressure 114/96 H Pulse Oximetry 97 Oxygen Delivery Room Air 03/04/25 00:00 03/04/25 00:21 03/04/25 04:00 Temperature Pulse Rate 96 Pulse Rate [Monitor] 100 Pulse Rate [Right Radial Palpation] 82 Respiratory Rate 20 Blood Pressure 163/93 H Pulse Oximetry 98 Oxygen Delivery 03/04/25 05:43 03/04/25 07:54 Temperature 36.7 C Pulse Rate 88 90 Pulse Rate [Monitor] Pulse Rate [Right Radial Palpation] Respiratory Rate 24 H 22 H Blood Pressure 132/74 137/84 Pulse Oximetry 100 98 Oxygen Delivery Intake/Output Intake/Output: Intake & Output 03/01/25 03/02/25 03/03/25 03/04/25 23:59 23:59 23:59 23:59 Intake Total 1087.95 981.7 1763.3 1000 Balance 1087.95 981.7 1763.3 1000 Meds/Results Medications: Active Medications Generic Name Dose Route Start Last Admin Trade Name Freq PRN Reason Stop Dose Admin Albuterol/Ipratropium 3 ml 02/27/25 09:18 Ipratropium 0.5 Mg/Albuterol Sulfate 2.5 Mg (Base) Ampul.Neb 3 Ml INHALATION Q6HRT PRN Wheezing Aspirin 81 mg 02/26/25 08:00 03/03/25 09:50 Aspirin 81 Mg Chewable Tablet PO Not Given DAILY@0800 STEPHANIE Atorvastatin Calcium 20 mg 02/25/25 21:00 03/03/25 20:55 Atorvastatin 20 Mg Tablet PO Not Given QHS STEPHANIE Calcium Carbonate 200 mg 02/25/25 16:43 02/25/25 23:14 Calcium Carbonate (Tums) 500 Mg (200 Mg Elemental) PO 200 mg Q6H PRN Administration Indigestion Dextrose 12.5 gm 03/02/25 23:56 Dextrose 50% 25 Gm/50 Ml Syringe IV PUSH PRN PRN Hypoglycemia Protocol Diazepam 5 mg 03/04/25 06:00 03/04/25 05:46 Diazepam Inj (*Crx) 10 Mg/2 Ml Syringe IV PUSH 5 mg Q6HR STEPHANIE Administration Enoxaparin Sodium 40 mg 02/25/25 21:00 03/03/25 20:41 Enoxaparin 40 Mg/0.4 Ml Syringe SUB-Q 40 mg HS STEPHANIE Administration Famotidine 20 mg 02/26/25 09:00 03/03/25 20:40 Famotidine 20 Mg/2 Ml Vial IV PUSH 20 mg Q12HR STEPHANIE Administration Fish Oil 1 gm 02/25/25 21:00 03/03/25 20:55 [place] 3 Polyunsat Fatty Acids 1 Gm Cap PO Not Given Q12HR STEPHANIE Fluticasone/Umeclidinium/Vilanterol 1 puff 02/26/25 08:00 03/03/25 08:22 Fluticasone/Umeclidin/Vilanter 100-62.5-25 Mcg Ellipta INHALATION 1 puff DAILYRT STEPHANIE Administration Folic Acid 1 mg 02/26/25 09:00 03/03/25 09:50 Folic Acid 1 Mg Tablet PO Not Given DAILY STEPHANIE Glucagon 1 mg 03/02/25 23:56 Glucagon For Inj 1 Mg Vial IM PRN PRN Hypoglycemia Protocol Glucose 15 gm 03/02/25 23:56 Glucose Oral Gel 15 Gm Of Glucse In 37.5 Gm Tube PO PRN PRN Hypoglycemia Protocol Dextrose 1,000 mls @ 100 mls/hr 03/02/25 23:56 Dextrose 5% 1,000 Ml IVPB PRN PRN Hypoglycemia Protocol Dextrose/Sodium Chloride 1,000 mls @ 75 mls/hr 03/02/25 23:45 03/04/25 04:13 Dextrose 5% Sodium Chloride 0.9% IV CONT 75 mls/hr .[id number] STEPHANIE Administration Loratadine 10 mg 02/26/25 09:00 03/03/25 09:50 Loratadine 10 Mg Tablet PO Not Given DAILY [facility] Lorazepam 2 mg 02/25/25 21:17 02/27/25 23:02 Lorazepam (*Crx) 1 Mg Tablet PO 2 mg Q2H PRN Administration CIWA 8-10 Lorazepam 2 mg 02/27/25 07:29 03/04/25 00:05 Lorazepam Inj (*Crx) 2 Mg/Ml Vial IV PUSH 2 mg Q1H PRN Administration CIWA > 15 Lorazepam 1 mg 02/27/25 07:29 03/01/25 09:53 Lorazepam Inj (*Crx) 2 Mg/Ml Vial IV PUSH 1 mg Q1H PRN Administration CIWA 11-15 Losartan Potassium 25 mg 02/26/25 09:00 03/03/25 09:50 Losartan Potassium 25 Mg Tablet BY MOUTH Not Given DAILY [facility] Thiamine HCl 100 mg 02/26/25 09:00 03/03/25 09:50 Thiamine Hcl 100 Mg Tablet PO Not Given DAILY [facility] Radiology Results: ITS Impressions Chest X-Ray 02/25/25 11:04 IMPRESSION: 1. Possible small developing consolidation along the left heart border. Labs Labs: Laboratory Results - last 24 hr 03/03/25 03/03/25 03/04/25 12:04 17:53 06:13 POC Capillary Glucose 126 H 92 85 Quality VTE Prophylaxis VTE prophylaxis: pharmacologic ordered
[2025-03-04] MEDS: FLUTICASONE/UMECLIDIN/VILANTER 100-62.5-25 MCG ELLIPTA 1 PUFF INHALATION (08:34)
[2025-03-04] MEDS: FAMOTIDINE 20 MG/2 ML VIAL IV PUSH ×2 (09:38→20:39)
--- NOTE | 2025-03-04 12:39 | ADMGEN ---
This patient, Davion Valdez, was admitted to 3 [facility] Surg Room 333-01. Patient/family oriented to hospital policies and general routines including ID bracelet, bed and alarms, visiting hours, pain management, procedures, bathroom and other care routines, personal items, smoking policy, room service/diet, and visiting hours. Information on how to activate the Rapid Response Team has been discussed. Patient/Family are encouraged to report perceived risks to care and to ask questions if they do not understand what they are told or what they should do. received report from john.
--- NOTE | 2025-03-04 12:45 | PCSTNOTE ---
RNs suggested FIRMWARE MANAGER speak w/ pt's sitter Sudha as he had just arrived to their floor and Sudha has been with him for days. FIRMWARE MANAGER spoke with Sudha who stated that pt was not alert and oriented. Pt was asleep in bed at the time and was not able to be roused. Pt not appropriate for BSE at this time.
[2025-03-04] MEDS: ENOXAPARIN 40 MG/0.4 ML SYRINGE SUB-Q (20:39)
[2025-03-05] VITALS: BP 124/74; PULSE 100; PULSE 118; PULSE 82
[2025-03-05 03:39] VITALS: BP 124/74; PULSE 100; PULSE 118; PULSE 82
[2025-03-05 05:34] LABS: Hematocrit 38.6 % (42.0-52.0); Hemoglobin 12.8 g/dL (14.0-18.0); Immature Granulocyte Percent A 1.0 % (0-0.5); Lymphocytes Absolute Auto 0.68 K/mm3 (0.9-3.2); Mean Corpuscular HGB Conc 33.2 g/dl (32-36); Mean Corpuscular Hemoglobin 30.4 pg (26-34); Mean Corpuscular Volume 91.7 fl (80-100); Nucleated Red Blood Cells Absolute Auto 0.000 K/mm3 (0.0-0.012); Nucleated Red Blood Cells Perc 0.0 % (0.0-0.2); Platelet Count Result 180 k/mm3 (150-375); Red Blood Count 4.21 M/mm3 (4.6-6.20); White Blood Count 7.7 K/mm3 (4.5-10.0)
[2025-03-05 05:50] VITALS: BP 93/54; PULSE 84; RESP 16; TEMP 36.6; O2SAT 96
[2025-03-05 06:00] LABS: Alanine Aminotransferase 30 U/L (6-50); Albumin Level 2.9 g/dL (3.5-5.1); Alkaline Phosphatase 22 U/L (38-126); Anion Gap 2 mmol/L (4-12); Aspartate Amino Transferase 37 U/L (17-59); Bilirubin,Total 0.9 mg/dL (0.2-1.3); Blood Urea Nitrogen 9 mg/dL (9-20); Calcium 7.9 mg/dL (8.4-10.2); Carbon Dioxide 23 mmol/L (22-30); Chloride 110 mmol/L (98-107); Estimated CRCL calculation 58 ml/min; Estimated Glomerular Filt Rate > 60; Glucose 93 mg/dL (65-110); Potassium 3.0 mmol/L (3.4-5.0); Sodium 135 mmol/L (137-145); Total Protein 5.5 g/dL (6.3-8.2)
[2025-03-05] MEDS: DEXTROSE 5%/0.9% SOD CHL 1,000 ML 75 ML IV CONT (07:12)
[2025-03-05] MEDS: FAMOTIDINE 20 MG/2 ML VIAL IV PUSH ×2 (10:07→21:27)
--- NOTE | 2025-03-05 11:05 | PCNFU ---
Nutrition Follow-Up Complete: Inadequate Oral Intake as related to ETOH Abuse as evidenced by poor po intake. Goal:meet estimated nutritional needs Pt continues to not meet goal Pt current nutrition is Regular, Ensure TID. Nutrition recommendation: may need to consider alternative nutrition support Last recorded weight is 48.4 kg. Bowel Motility: +BM 03/05 Labs Reviewed: Hgb:12.8, HCT:8.6, NA:135, K:3.0, Cr:0.68, M.4 Meds Noted: thiamin, folic acid, MVI Skin: WNL Additional Notes: Pt continues to not be alert and oriented, minimal if any po intake of meals. Pt is now 5 days without adequate nutrition. Spoke with nursing about possible nutrition support. Recommend placing an NG tube for tube feedings if pt will leave tube in place, to utilize the gut, Otherwise consider PPN. Will monitor weight, labs, skin, diet orders, meds every 3 days.
--- NOTE | 2025-03-05 11:09 | PCSTNOTE ---
Please refer to the Bedside Swallow Evaluation in the EMR. Please note, silent aspiration cannot be ruled out at bedside. Pt is a 74-year-old male with a past medical history of Encephalomalacia, HTN, HLD, thoracic aortic aneurysm, CVA, COPD, and alcohol abuse. He presented this admission to the ED on 02/25/2025 with complaints of increased dyspnea. Bedside Swallow Evaluation orders placed 03/04/25 due to history of dysphagia; however, per RN, pt with notable coughing/choking episodes when pt was fed by family. RN also reports significant confusion and notable fatigued. She stated that he is unable to maintain alertness for a prolonged period of time and communicates with RN infrequently. RN agreeable to evaluation and was present for a majority of the evaluation. Upon SNOUT PULLER arrival to the room, pt positioned upright in chair and was asleep. Despite maximum efforts from RN and SNOUT PULLER, pt woke for about about 10 seconds at a time and was unable to consistently follow commands. During moments when the pt was awake, the SNOUT PULLER attempted to provide PO trials of ice chips x4 and moist swab x1. Pt was unable to fully manipulate the ice chip in his mouth and began to fall asleep with the ice chip in his mouth. The SNOUT PULLER woke him up again and he was instructed to swallow. Pt was noted to cough x2 after presentation of ice chips. Moist swabx1 was presented and pt demonstrated increased alertness and demonstrated the ability to swallow after the moist swab was removed. No overt signs or symptoms of aspiration were noted after trial of the moist swab. Given pt's presentation at the bedside, it is recommended that the pt be made NPO at this time. Giving the pt PO at this time is unsafe due to his persistent fatigue and his inability to maintain alertness when PO is present. Alternative feeding methods should be considered. Recommendations: 1. NPO; medications non-orally; moist swabs for comfort when pt is awake 2. ST to d/c due to pt not medically appropriate for services at this time given his inability to maintain alertness. Please re-consult ST when pt is medically ready. RN notified of these results and agreeable; Message left for MD with recommendations
--- NOTE | 2025-03-05 12:08 | PCRCNOTE ---
Window of time for administration has passed. See next scheduled administration.
--- NOTE | 2025-03-05 12:42 | P.PNIM_ITS ---
Assessment and Plan Assessment and Plan (1) Acute exacerbation of chronic obstructive pulmonary disease: Code(s): J44.1 - Chronic obstructive pulmonary disease with (acute) exacerbation Status: Acute Assessment and Plan: Patient is saturating well on room air Continue bronchodilators, fluticasone Initially treated with steroid and doxycycline This seems stable now (2) Agitation: Code(s): R45.1 - Restlessness and agitation Status: Acute Assessment and Plan: Likely combination of alcohol withdrawal and delirium Continue Librium Off Precedex P.r.n. Ativan Monitor Agitation has resolved. He is more and hypoactive delirium site. Doubt alcohol withdrawal ongoing since he is D 7 of admission (3) Alcohol withdrawal: Code(s): F10.939 - Alcohol use, unspecified with withdrawal, unspecified Status: Acute Assessment and Plan: Continue in thiamine and folic acid (4) Delirium: Code(s): R41.0 - Disorientation, unspecified Status: Acute Assessment and Plan: See above (5) CAD (coronary artery disease): Code(s): I25.10 - Atherosclerotic heart disease of [place] coronary artery without angina pectoris Status: Acute Assessment and Plan: Continue aspirin losartan and statin (6) HTN (hypertension): Qualifiers: Hypertension type: primary hypertension Qualified Code(s): I10 - Essential (primary) hypertension Code(s): I10 - Essential (primary) hypertension Status: Chronic Assessment and Plan: Continue losartan Plan 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 Will continue physical therapy DVT prophylaxis -Lovenox Stress ulcer prophylaxis -Pepcid Nutrition NPO as failed swallow evaluation will place NG tube to start feeding Code Status - Full Code Subjective Date/time seen: 03/05/25 12:42 Interval history: 74-year-old male with a past medical history of Encephalomalacia, HTN, HLD, thoracic aortic aneurysm, CVA, COPD, alcohol abuse presents to the ED on 02/25/2025 with complaints of increased dyspnea. 03/01: Patient was seen during the morning rounds today. Patient is a slight withdrawal. Requiring soft restraint. No shortness breath or chest pain. 03/02: Patient was seen during the morning rounds today. Less withdrawal, no sob or chest pain 03/03: Patient was seen during morning rounds today. No new overnight complaints. No shortness of breath or chest pain. Withdrawal is better. 03/04/2025 Patient was seen during morning rounds today. Patient is feeling better. No shortness of breath or chest pain. Patient withdrawal is much better. 03/05/2025: No overnight events. Patient failed swallow evaluation this a.m.. Patient is still drowsy not agitated. Discussed with nursing staff Review of Systems Review of Systems: All systems reviewed & are unremarkable except as noted in HPI and below ROS unobtainable: Yes unobtainable due to medical condition and unobtainable due to mental status Exam Narrative: General: Pt is drowsy Lungs/Chest: Trachea central course BS B/L, No crackles or wheezing. Cardiac: RRR. Normal S1 S2. No murmurs Circulation: Pedal pulses are intact and symmetrical. Abdomen: Normal bowel sounds.. Soft. NT. ND. Extremities: No clubbing, cyanosis or edema. Warm : Samson in place Neurologic: Patient is somnolent will follow some commands, right side weak, reflexes equal and symmetrical. Skin: No Rash Objective Data Vital Signs Vital Signs: Vital Signs - 24 hr 03/04/25 16:00 03/04/25 20:00 03/04/25 20:00 Temperature 98.4 F Pulse Rate 95 95 Pulse Rate [Bilateral Pedal (Dorsalis Pedis) Palpation] 118 H Pulse Rate [Monitor] 100 Pulse Rate [Right Radial Palpation] 82 Respiratory Rate 18 18 Blood Pressure 122/73 122/73 Pulse Oximetry 96 96 Oxygen Delivery Room Air 03/04/25 20:35 03/05/25 00:00 03/05/25 03:39 Temperature 97.7 F Pulse Rate 87 Pulse Rate [Bilateral Pedal (Dorsalis Pedis) Palpation] 118 H 118 H Pulse Rate [Monitor] 100 100 Pulse Rate [Right Radial Palpation] 82 82 Respiratory Rate 18 Blood Pressure 124/74 124/74 124/74 Pulse Oximetry 96 Oxygen Delivery 03/05/25 05:50 03/05/25 07:53 03/05/25 08:00 Temperature 97.8 F Pulse Rate 84 Pulse Rate [Bilateral Pedal (Dorsalis Pedis) Palpation] Pulse Rate [Monitor] Pulse Rate [Right Radial Palpation] Respiratory Rate 16 Blood Pressure 93/54 L Pulse Oximetry 96 Oxygen Delivery Room Air Room Air Intake/Output Intake/Output: Intake & Output 03/02/25 03/03/25 03/04/25 03/05/25 23:59 23:59 23:59 23:59 Intake Total 981.7 1763.3 1990.3 1050 Output Total 0 Balance 981.7 1763.3 1990. 1050 Meds/Results Medications: Active Medications Generic Name Dose Route Start Last Admin Trade Name Freq PRN Reason Stop Dose Admin Albuterol/Ipratropium 3 ml 02/27/25 09:18 Ipratropium 0.5 Mg/Albuterol Sulfate 2.5 Mg (Base) Ampul.Neb 3 Ml INHALATION Q6HRT PRN Wheezing Aspirin 81 mg 02/26/25 08:00 03/05/25 10:04 Aspirin 81 Mg Chewable Tablet PO Not Given DAILY@0800 STEPHANIE Atorvastatin Calcium 20 mg 02/25/25 21:00 03/04/25 20:39 Atorvastatin 20 Mg Tablet PO Not Given QHS STEPHANIE Calcium Carbonate 200 mg 02/25/25 16:43 02/25/25 23:14 Calcium Carbonate (Tums) 500 Mg (200 Mg Elemental) PO 200 mg Q6H PRN Administration Indigestion Dextrose 12.5 gm 03/02/25 23:56 Dextrose 50% 25 Gm/50 Ml Syringe IV PUSH PRN PRN Hypoglycemia Protocol Diazepam 5 mg 03/04/25 06:00 03/05/25 12:33 Diazepam Inj (*Crx) 10 Mg/2 Ml Syringe IV PUSH Not Given Q6HR STEPHANIE Enoxaparin Sodium 40 mg 02/25/25 21:00 03/04/25 20:39 Enoxaparin 40 Mg/0.4 Ml Syringe SUB-Q 40 mg HS STEPHANIE Administration Famotidine 20 mg 02/26/25 09:00 03/05/25 10:07 Famotidine 20 Mg/2 Ml Vial IV PUSH 20 mg Q12HR STEPHANIE Administration Fish Oil 1 gm 02/25/25 21:00 03/05/25 10:05 [place] 3 Polyunsat Fatty Acids 1 Gm Cap PO Not Given Q12HR STEPHANIE Fluticasone/Umeclidinium/Vilanterol 1 puff 02/26/25 08:00 03/05/25 12:08 Fluticasone/Umeclidin/Vilanter 100-62.5-25 Mcg Ellipta INHALATION Not Given DAILYRT STEPHANIE Folic Acid 1 mg 02/26/25 09:00 03/05/25 10:04 Folic Acid 1 Mg Tablet PO Not Given DAILY STEPHANIE Glucagon 1 mg 03/02/25 23:56 Glucagon For Inj 1 Mg Vial IM PRN PRN Hypoglycemia Protocol Glucose 15 gm 03/02/25 23:56 Glucose Oral Gel 15 Gm Of Glucse In 37.5 Gm Tube PO PRN PRN Hypoglycemia Protocol Dextrose 1,000 mls @ 100 mls/hr 03/02/25 23:56 Dextrose 5% 1,000 Ml IVPB PRN PRN Hypoglycemia Protocol Dextrose/Sodium Chloride 1,000 mls @ 75 mls/hr 03/02/25 23:45 03/05/25 07:12 Dextrose 5% Sodium Chloride 0.9% IV CONT 75 mls/hr .[id number] STEPHANIE Administration Loratadine 10 mg 02/26/25 09:00 03/05/25 10:04 Loratadine 10 Mg Tablet PO Not Given DAILY STEPHANIE Lorazepam 2 mg 02/25/25 21:17 02/27/25 23:02 Lorazepam (*Crx) 1 Mg Tablet PO 2 mg Q2H PRN Administration CIWA 8-10 Lorazepam 2 mg 02/27/25 07:29 03/04/25 00:05 Lorazepam Inj (*Crx) 2 Mg/Ml Vial IV PUSH 2 mg Q1H PRN Administration CIWA > 15 Lorazepam 1 mg 02/27/25 07:29 03/01/25 09:53 Lorazepam Inj (*Crx) 2 Mg/Ml Vial IV PUSH 1 mg Q1H PRN Administration CIWA 11-15 Losartan Potassium 25 mg 02/26/25 09:00 03/05/25 10:05 Losartan Potassium 25 Mg Tablet BY MOUTH Not Given DAILY [facility] Thiamine HCl 100 mg 02/26/25 09:00 03/05/25 10:05 Thiamine Hcl 100 Mg Tablet PO Not Given DAILY [facility] Radiology Results: ITS Impressions Chest X-Ray 02/25/25 11:04 IMPRESSION: 1. Possible small developing consolidation along the left heart border. Labs Labs: Laboratory Results - last 24 hr 03/04/25 03/04/25 03/05/25 17:09 23:30 04:45 WBC 7.7 RBC 4.21 L Hgb 12.8 L Hct 38.6 L MCV 91.7 MCH 30.4 MCHC 33.2 RDW 13.6 Plt Count 180 MPV 10.1 Immature Gran % (Auto) 1.0 H Neut % (Auto) 71.1 Lymph % (Auto) 8.[address] [place] % (Auto) 12.6 H Eos % (Auto) 6.3 H Baso % (Auto) 0.1 L Lymph # (Auto) 0.[address] [place] # (Auto) 1.0 H Eos # (Auto) 0.5 H Baso # (Auto) 0.0 Abs Immat Gran (auto) 0.08 H Absolute Neuts (auto) 5.5 Absolute Nucleated RBC 0.000 Nucleated RBC % 0.0 Sodium 135 L Potassium 3.0 L Chloride 110 H Carbon Dioxide 23 Anion Gap 2 L BUN 9 D Creatinine 0.68 L Estim Creat Clear Calc 58 Estimated GFR > 60 Glucose 93 POC Capillary Glucose 117 H 114 H Calcium 7.9 L Total Bilirubin 0.9 AST 37 ALT 30 Alkaline Phosphatase 22 L Total Protein 5.5 L Albumin 2.9 L 03/05/25 03/05/25 04:46 12:37 WBC RBC Hgb Hct MCV MCH MCHC RDW Plt Count MPV Immature Gran % (Auto) Neut % (Auto) Lymph % (Auto) [place] % (Auto) Eos % (Auto) Baso % (Auto) Lymph # (Auto) [place] # (Auto) Eos # (Auto) Baso # (Auto) Abs Immat Gran (auto) Absolute Neuts (auto) Absolute Nucleated RBC Nucleated RBC % Sodium Potassium Chloride Carbon Dioxide Anion Gap BUN Creatinine Estim Creat Clear Calc Estimated GFR Glucose POC Capillary Glucose 107 H 153 H Calcium Total Bilirubin AST ALT Alkaline Phosphatase Total Protein Albumin Quality VTE Prophylaxis VTE prophylaxis: pharmacologic ordered
[2025-03-05] MEDS: POTASSIUM CHLORIDE INJ 40 MEQ in SODIUM CHLORIDE 0.9% IV 500 ML 130 MEQ IVPB (13:13)
[2025-03-05 13:37] VITALS: BMI 17.2
--- NOTE | 2025-03-05 13:40 | PCDIET ---
Pt going for dobhoff placement for tube feeding. Recommendation for tube feeding: Jevity 1.5 @ 55ml/hr with 150ml flush q 4 hrs to provide 1815kcals, 77g protein, 1819ml free water. Recommend to start at 20ml/hr, advance by 10ml q 4hrs as tolerated, to goal rate.
[2025-03-05 16:00] VITALS: BP 133/79; PULSE 95; RESP 16; TEMP 36.2; O2SAT 100
--- NOTE | 2025-03-05 18:13 | PC.NURSE ---
patient pulled out dobhoff tube.
[2025-03-05 20:55] VITALS: BP 132/88; PULSE 99; RESP 20; TEMP 36.3; O2SAT 95
--- NOTE | 2025-03-05 21:18 | PC.NURSE ---
[id number]: Ng removed by pt; reinserted; waiting fort xray verification
[2025-03-05] MEDS: ENOXAPARIN 40 MG/0.4 ML SYRINGE SUB-Q (21:27)
[2025-03-05] MEDS: ATORVASTATIN 20 MG TABLET PO (21:27)
[2025-03-06] MEDS: DEXTROSE 5%/0.9% SOD CHL 1,000 ML 75 ML IV CONT ×2 (01:28→08:57)
--- NOTE | 2025-03-06 03:48 | PC.NURSE ---
0348: pt removed his NG tube twice during this shift despite wrist restraint.
[2025-03-06 05:22] VITALS: BP 129/84; PULSE 113; RESP 16; TEMP 36.3; O2SAT 100
[2025-03-06 06:48] LABS: Hematocrit 37.3 % (42.0-52.0); Hemoglobin 12.6 g/dL (14.0-18.0); Immature Granulocyte Percent A 0.6 % (0-0.5); Lymphocytes Absolute Auto 0.65 K/mm3 (0.9-3.2); Mean Corpuscular HGB Conc 33.8 g/dl (32-36); Mean Corpuscular Hemoglobin 30.6 pg (26-34); Mean Corpuscular Volume 90.5 fl (80-100); Nucleated Red Blood Cells Absolute Auto 0.000 K/mm3 (0.0-0.012); Nucleated Red Blood Cells Perc 0.0 % (0.0-0.2); Platelet Count Result 190 k/mm3 (150-375); Red Blood Count 4.12 M/mm3 (4.6-6.20); White Blood Count 8.0 K/mm3 (4.5-10.0)
[2025-03-06 07:05] LABS: Alanine Aminotransferase 35 U/L (6-50); Albumin Level 3.2 g/dL (3.5-5.1); Alkaline Phosphatase 34 U/L (38-126); Anion Gap 3 mmol/L (4-12); Aspartate Amino Transferase 42 U/L (17-59); Bilirubin,Total 0.7 mg/dL (0.2-1.3); Blood Urea Nitrogen 6 mg/dL (9-20); Calcium 8.4 mg/dL (8.4-10.2); Carbon Dioxide 26 mmol/L (22-30); Chloride 109 mmol/L (98-107); Estimated CRCL calculation 63 ml/min; Estimated Glomerular Filt Rate > 60; Glucose 117 mg/dL (65-110); Magnesium 1.8 mg/dL (1.6-2.3); Potassium 3.2 mmol/L (3.4-5.0); Sodium 138 mmol/L (137-145); Total Protein 6.1 g/dL (6.3-8.2)
[2025-03-06] MEDS: FAMOTIDINE 20 MG/2 ML VIAL IV PUSH ×2 (08:58→20:39)
--- NOTE | 2025-03-06 13:17 | PM.IMPN2 ---
Assessment and Plan Assessment and Plan (1) Acute exacerbation of chronic obstructive pulmonary disease: Code(s): J44.1 - Chronic obstructive pulmonary disease with (acute) exacerbation Status: Acute Assessment and Plan: Patient is saturating well on room air Continue bronchodilators, fluticasone Initially treated with steroid and doxycycline This seems stable now (2) Agitation: Code(s): R45.1 - Restlessness and agitation Status: Acute Assessment and Plan: Likely combination of alcohol withdrawal and delirium Continue Librium Off Precedex P.r.n. Ativan Monitor Agitation has resolved. He is more and hypoactive delirium site. Doubt alcohol withdrawal ongoing since he is more than a week of admission (3) Alcohol withdrawal: Code(s): F10.939 - Alcohol use, unspecified with withdrawal, unspecified Status: Acute Assessment and Plan: Continue in thiamine and folic acid (4) Delirium: Code(s): R41.0 - Disorientation, unspecified Status: Acute Assessment and Plan: See above Will need MRI brain to further evaluate (5) CAD (coronary artery disease): Code(s): I25.10 - Atherosclerotic heart disease of [place] coronary artery without angina pectoris Status: Acute Assessment and Plan: Continue aspirin losartan and statin (6) HTN (hypertension): Qualifiers: Hypertension type: primary hypertension Qualified Code(s): I10 - Essential (primary) hypertension Code(s): I10 - Essential (primary) hypertension Status: Chronic Assessment and Plan: Continue losartan Plan 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 Will continue physical therapy Dysphagia NG placed for feeding however had pulled out. Restrain p.r.n. re-attempt to NG placement and tube feed DVT prophylaxis -Lovenox Stress ulcer prophylaxis -Pepcid Nutrition NPO as failed swallow evaluation Code Status - Full Code Subjective Date/time seen: 03/06/25 13:17 Interval history: 74-year-old male with a past medical history of Encephalomalacia, HTN, HLD, thoracic aortic aneurysm, CVA, COPD, alcohol abuse presents to the ED on 02/25/2025 with complaints of increased dyspnea. 03/01: Patient was seen during the morning rounds today. Patient is a slight withdrawal. Requiring soft restraint. No shortness breath or chest pain. 03/02: Patient was seen during the morning rounds today. Less withdrawal, no sob or chest pain 03/03: Patient was seen during morning rounds today. No new overnight complaints. No shortness of breath or chest pain. Withdrawal is better. 03/04/2025 Patient was seen during morning rounds today. Patient is feeling better. No shortness of breath or chest pain. Patient withdrawal is much better. 03/05/2025: No overnight events. Patient failed swallow evaluation this a.m.. Patient is still drowsy not agitated. Discussed with nursing staff 03/06/2025: Overnight he pulled all the NG is there has been placed. Still confused with slurred speech. Work with therapy. Review of Systems Review of Systems: All systems reviewed & are unremarkable except as noted in HPI and below Exam Narrative: General: Pt is awake slurred speech weak right side Lungs/Chest: Trachea central course BS B/L, No crackles or wheezing. Cardiac: RRR. Normal S1 S2. No murmurs Circulation: Pedal pulses are intact and symmetrical. Abdomen: Normal bowel sounds.. Soft. NT. ND. Extremities: No clubbing, cyanosis or edema. Warm : Samson in place Neurologic: Patient is awake falls some commands, confused, right side weak, reflexes equal and symmetrical. Skin: No Rash Objective Data Vital Signs Vital Signs: Vital Signs - 24 hr 03/05/25 16:00 03/05/25 20:55 03/06/25 05:22 Temperature 97.1 F L 97.4 F L 97.4 F L Pulse Rate 95 99 113 H Respiratory Rate 16 20 16 Blood Pressure 133/79 132/88 129/84 Pulse Oximetry 100 95 100 Oxygen Delivery 03/06/25 08:00 Temperature Pulse Rate Respiratory Rate Blood Pressure Pulse Oximetry Oxygen Delivery Room Air Intake/Output Intake/Output: Intake & Output 03/03/25 03/04/25 03/05/25 03/06/25 23:59 23:59 23:59 23:59 Intake Total 1763.3 2049 561.2 Output Total 0 Balance 1763.3 2049 561.2 Meds/Results Medications: Active Medications Generic Name Dose Route Start Last Admin Trade Name Freq PRN Reason Stop Dose Admin Albuterol/Ipratropium 3 ml 02/27/25 09:18 Ipratropium 0.5 Mg/Albuterol Sulfate 2.5 Mg (Base) Ampul.Neb 3 Ml INHALATION Q6HRT PRN Wheezing Aspirin 81 mg 02/26/25 08:00 03/06/25 10:35 Aspirin 81 Mg Chewable Tablet PO Not Given DAILY@0800 STEPHANIE Atorvastatin Calcium 20 mg 02/25/25 21:00 03/05/25 21:27 Atorvastatin 20 Mg Tablet PO 20 mg QHS STEPHANIE Administration Calcium Carbonate 200 mg 02/25/25 16:43 02/25/25 23:14 Calcium Carbonate (Tums) 500 Mg (200 Mg Elemental) PO 200 mg Q6H PRN Administration Indigestion Dextrose 12.5 gm 03/02/25 23:56 Dextrose 50% 25 Gm/50 Ml Syringe IV PUSH PRN PRN Hypoglycemia Protocol Enoxaparin Sodium 40 mg 02/25/25 21:00 03/05/25 21:27 Enoxaparin 40 Mg/0.4 Ml Syringe SUB-Q 40 mg HS STEPHANIE Administration Famotidine 20 mg 02/26/25 09:00 03/06/25 08:58 Famotidine 20 Mg/2 Ml Vial IV PUSH 20 mg Q12HR STEPHANIE Administration Fish Oil 1 gm 02/25/25 21:00 03/06/25 10:36 [place] 3 Polyunsat Fatty Acids 1 Gm Cap PO Not Given Q12HR STEPHANIE Fluticasone/Umeclidinium/Vilanterol 1 puff 02/26/25 08:00 03/05/25 12:08 Fluticasone/Umeclidin/Vilanter 100-62.5-25 Mcg Ellipta INHALATION Not Given DAILYRT STEPHANIE Folic Acid 1 mg 02/26/25 09:00 03/06/25 10:36 Folic Acid 1 Mg Tablet PO Not Given DAILY STEPHANIE Glucagon 1 mg 03/02/25 23:56 Glucagon For Inj 1 Mg Vial IM PRN PRN Hypoglycemia Protocol Glucose 15 gm 03/02/25 23:56 Glucose Oral Gel 15 Gm Of Glucse In 37.5 Gm Tube PO PRN PRN Hypoglycemia Protocol Dextrose 1,000 mls @ 100 mls/hr 03/02/25 23:56 Dextrose 5% 1,000 Ml IVPB PRN PRN Hypoglycemia Protocol Dextrose/Sodium Chloride 1,000 mls @ 75 mls/hr 03/02/25 23:45 03/06/25 08:57 Dextrose 5% Sodium Chloride 0.9% IV CONT 75 mls/hr .[id number] STEPHANIE Administration Loratadine 10 mg 02/26/25 09:00 03/06/25 10:36 Loratadine 10 Mg Tablet PO Not Given DAILY [facility] Losartan Potassium 25 mg 02/26/25 09:00 03/06/25 10:36 Losartan Potassium 25 Mg Tablet BY MOUTH Not Given DAILY STEPHANIE Thiamine HCl 100 mg 02/26/25 09:00 03/06/25 10:36 Thiamine Hcl 100 Mg Tablet PO Not Given DAILY STEPHANIE Radiology Results: ITS Impressions Chest X-Ray 02/25/25 11:04 IMPRESSION: 1. Possible small developing consolidation along the left heart border. Labs Labs: Laboratory Results - last 24 hr 03/05/25 03/06/25 03/06/25 23:16 06:06 08:02 WBC 8.0 RBC 4.12 L Hgb 12.6 L Hct 37.3 L MCV 90.5 MCH 30.6 MCHC 33.8 RDW 13.6 Plt Count 190 MPV 10.2 Immature Gran % (Auto) 0.6 H Neut % (Auto) 73.3 H Lymph % (Auto) 8.1 L [place] % (Auto) 13.3 H Eos % (Auto) 4.6 H Baso % (Auto) 0.1 L Lymph # (Auto) 0.65 L [place] # (Auto) 1.1 H Eos # (Auto) 0.4 H Baso # (Auto) 0.0 Abs Immat Gran (auto) 0.05 H Absolute Neuts (auto) 5.9 Absolute Nucleated RBC 0.000 Nucleated RBC % 0.0 Sodium 138 Potassium 3.2 L Chloride 109 H Carbon Dioxide 26 Anion Gap 3 L BUN 6 L Creatinine 0.61 L Estim Creat Clear Calc 63 Estimated GFR > 60 Glucose 117 H POC Capillary Glucose 140 H 120 H 124 H Calcium 8.4 Magnesium 1.8 Total Bilirubin 0.7 AST 42 ALT 35 Alkaline Phosphatase 34 L Total Protein 6.1 L Albumin 3.2 L 03/06/25 11:40 WBC RBC Hgb Hct MCV MCH MCHC RDW Plt Count MPV Immature Gran % (Auto) Neut % (Auto) Lymph % (Auto) [place] % (Auto) Eos % (Auto) Baso % (Auto) Lymph # (Auto) [place] # (Auto) Eos # (Auto) Baso # (Auto) Abs Immat Gran (auto) Absolute Neuts (auto) Absolute Nucleated RBC Nucleated RBC % Sodium Potassium Chloride Carbon Dioxide Anion Gap BUN Creatinine Estim Creat Clear Calc Estimated GFR Glucose POC Capillary Glucose 107 H Calcium Magnesium Total Bilirubin AST ALT Alkaline Phosphatase Total Protein Albumin Quality VTE Prophylaxis VTE prophylaxis: pharmacologic ordered
[2025-03-06 16:00] VITALS: BP 157/80; PULSE 98; RESP 14; TEMP 36.2; O2SAT 100
[2025-03-06 16:18] LABS: Hematocrit 37.5 % (42.0-52.0); Hemoglobin 12.7 g/dL (14.0-18.0); Immature Granulocyte Percent A 0.6 % (0-0.5); Lymphocytes Absolute Auto 0.57 K/mm3 (0.9-3.2); Mean Corpuscular HGB Conc 33.9 g/dl (32-36); Mean Corpuscular Hemoglobin 30.8 pg (26-34); Mean Corpuscular Volume 91.0 fl (80-100); Nucleated Red Blood Cells Absolute Auto 0.000 K/mm3 (0.0-0.012); Nucleated Red Blood Cells Perc 0.0 % (0.0-0.2); Platelet Count Result 186 k/mm3 (150-375); Red Blood Count 4.12 M/mm3 (4.6-6.20); White Blood Count 9.3 K/mm3 (4.5-10.0)
[2025-03-06 16:29] LABS: Alanine Aminotransferase 34 U/L (6-50); Albumin Level 3.3 g/dL (3.5-5.1); Alkaline Phosphatase 31 U/L (38-126); Anion Gap 3 mmol/L (4-12); Aspartate Amino Transferase 36 U/L (17-59); Bilirubin,Total 0.8 mg/dL (0.2-1.3); Blood Urea Nitrogen 6 mg/dL (9-20); Calcium 8.5 mg/dL (8.4-10.2); Carbon Dioxide 27 mmol/L (22-30); Chloride 108 mmol/L (98-107); Estimated CRCL calculation 63 ml/min; Estimated Glomerular Filt Rate > 60; Glucose 114 mg/dL (65-110); Magnesium 1.7 mg/dL (1.6-2.3); Potassium 3.4 mmol/L (3.4-5.0); Sodium 138 mmol/L (137-145); Total Protein 6.2 g/dL (6.3-8.2)
[2025-03-06 16:31] LABS: Partial Thromboplastin Time 28.4 Seconds (22.3-36.8)
[2025-03-06 16:37] LABS: Transferrin 166 mg/dL (206-381)
[2025-03-06] MEDS: AMINO ACIDS 4.25%/D5W/LYTES/CA 1,000 ML 80 ML IV CONT (17:53)
[2025-03-06] MEDS: FAT EMULSIONS IV 20% 250 ML 20.83 ML IVPB (17:54)
[2025-03-06] MEDS: ENOXAPARIN 40 MG/0.4 ML SYRINGE SUB-Q (20:39)
[2025-03-06] MEDS: ATORVASTATIN 20 MG TABLET PO (20:40)
[2025-03-06] MEDS: OMEGA 3 POLYUNSAT FATTY ACIDS 1 GM CAP PO (20:40)
[2025-03-06 23:09] VITALS: BP 145/84; PULSE 101; RESP 20; TEMP 36.2; O2SAT 95
[2025-03-07] MEDS: DEXTROSE 5%/0.9% SOD CHL 1,000 ML 75 ML IV CONT (04:43)
[2025-03-07] MEDS: AMINO ACIDS 4.25%/D5W/LYTES/CA 1,000 ML 80 ML IV CONT ×2 (04:46→17:07)
[2025-03-07 06:40] VITALS: BP 153/88; PULSE 104; RESP 20; TEMP 36.7; O2SAT 97
[2025-03-07 07:15] LABS: Hematocrit 44.0 % (42.0-52.0); Hemoglobin 14.8 g/dL (14.0-18.0); Immature Granulocyte Percent A 0.7 % (0-0.5); Lymphocytes Absolute Auto 0.68 K/mm3 (0.9-3.2); Mean Corpuscular HGB Conc 33.6 g/dl (32-36); Mean Corpuscular Hemoglobin 30.8 pg (26-34); Mean Corpuscular Volume 91.5 fl (80-100); Nucleated Red Blood Cells Absolute Auto 0.000 K/mm3 (0.0-0.012); Nucleated Red Blood Cells Perc 0.0 % (0.0-0.2); Platelet Count Result 234 k/mm3 (150-375); Red Blood Count 4.81 M/mm3 (4.6-6.20); White Blood Count 14.3 K/mm3 (4.5-10.0)
[2025-03-07 07:44] LABS: Alanine Aminotransferase 36 U/L (6-50); Albumin Level 3.8 g/dL (3.5-5.1); Alkaline Phosphatase 31 U/L (38-126); Anion Gap 6 mmol/L (4-12); Aspartate Amino Transferase 40 U/L (17-59); Bilirubin,Total 0.8 mg/dL (0.2-1.3); Blood Urea Nitrogen 13 mg/dL (9-20); Calcium 8.6 mg/dL (8.4-10.2); Carbon Dioxide 27 mmol/L (22-30); Chloride 101 mmol/L (98-107); Estimated CRCL calculation 59 ml/min; Estimated Glomerular Filt Rate > 60; Glucose 146 mg/dL (65-110); Magnesium 1.9 mg/dL (1.6-2.3); Potassium 4.0 mmol/L (3.4-5.0); Sodium 134 mmol/L (137-145); Total Protein 7.1 g/dL (6.3-8.2)
[2025-03-07 08:12] LABS: Triglycerides 148 mg/dL (<150)
[2025-03-07] MEDS: FAMOTIDINE 20 MG/2 ML VIAL IV PUSH ×2 (10:19→21:51)
--- NOTE | 2025-03-07 13:07 | P.PNIM_ITS ---
Assessment and Plan Assessment and Plan (1) Acute exacerbation of chronic obstructive pulmonary disease: Code(s): J44.1 - Chronic obstructive pulmonary disease with (acute) exacerbation Status: Acute Assessment and Plan: Patient is saturating well on room air Continue bronchodilators, fluticasone Initially treated with steroid and doxycycline This seems stable now (2) Agitation: Code(s): R45.1 - Restlessness and agitation Status: Acute Assessment and Plan: Likely combination of alcohol withdrawal and delirium Continue Librium Off Precedex P.r.n. Ativan Monitor Agitation has resolved. He is more and hypoactive delirium site. Doubt alcohol withdrawal ongoing since he is more than a week of admission CT head is negative MRI brain pending (3) Alcohol withdrawal: Code(s): F10.939 - Alcohol use, unspecified with withdrawal, unspecified Status: Acute Assessment and Plan: Continue in thiamine and folic acid (4) Delirium: Code(s): R41.0 - Disorientation, unspecified Status: Acute Assessment and Plan: See above MRI brain is pending (5) CAD (coronary artery disease): Code(s): I25.10 - Atherosclerotic heart disease of [place] coronary artery without angina pectoris Status: Acute Assessment and Plan: Continue aspirin losartan and statin (6) HTN (hypertension): Qualifiers: Hypertension type: primary hypertension Qualified Code(s): I10 - Essential (primary) hypertension Code(s): I10 - Essential (primary) hypertension Status: Chronic Assessment and Plan: Continue losartan Plan 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 Will continue physical therapy Dysphagia NG placed for feeding however had pulled out. Restrain p.r.n. re- attempt to NG placement and tube feed. PPN ordered for now DVT prophylaxis -Lovenox Stress ulcer prophylaxis -Pepcid Nutrition NPO as failed swallow evaluation Code Status - Full Code Subjective Date/time seen: 03/07/25 13:07 Interval history: 74-year-old male with a past medical history of Encephalomalacia, HTN, HLD, thoracic aortic aneurysm, CVA, COPD, alcohol abuse presents to the ED on 02/25/2025 with complaints of increased dyspnea. 03/01: Patient was seen during the morning rounds today. Patient is a slight withdrawal. Requiring soft restraint. No shortness breath or chest pain. 03/02: Patient was seen during the morning rounds today. Less withdrawal, no sob or chest pain 03/03: Patient was seen during morning rounds today. No new overnight complaints. No shortness of breath or chest pain. Withdrawal is better. 03/04/2025 Patient was seen during morning rounds today. Patient is feeling better. No shortness of breath or chest pain. Patient withdrawal is much better. 03/05/2025: No overnight events. Patient failed swallow evaluation this a.m.. Patient is still drowsy not agitated. Discussed with nursing staff 03/06/2025: Overnight he pulled all the NG is there has been placed. Still confused with slurred speech. Work with therapy. 03/07/2025: Patient more somnolent today. No other overnight events. CT head was reviewed. Labs reviewed. Remains on PPI and that was ordered yesterday. Review of Systems Review of Systems: ROS unobtainable: Yes unobtainable due to medical condition Exam Narrative: General: Pt is somnolent slurred speech weak right side Lungs/Chest: Trachea central course BS B/L, No crackles or wheezing. Cardiac: RRR. Normal S1 S2. No murmurs Circulation: Pedal pulses are intact and symmetrical. Abdomen: Normal bowel sounds.. Soft. NT. ND. Extremities: No clubbing, cyanosis or edema. Warm : [place] in place Neurologic: Patient is somnolent, confused, right side weak, Skin: No Rash Objective Data Vital Signs Vital Signs: Vital Signs - 24 hr 03/06/25 16:00 03/06/25 20:00 03/06/25 23:09 Temperature 97.2 F L 97.2 F L Pulse Rate 98 101 H Respiratory Rate 14 20 Blood Pressure 157/80 H 145/84 H Pulse Oximetry 100 95 Oxygen Delivery Room Air 03/07/25 06:40 Temperature 98.0 F Pulse Rate 104 H Respiratory Rate 20 Blood Pressure 153/88 H Pulse Oximetry 97 Oxygen Delivery Intake/Output Intake/Output: Intake & Output 03/04/25 03/05/25 03/06/25 03/07/25 23:59 23:59 23:59 23:59 Intake Total 2049 1561.2 870.7 Output Total 0 Balance 2049 1561.2 870.7 Meds/Results Medications: Active Medications Generic Name Dose Route Start Last Admin Trade Name Freq PRN Reason Stop Dose Admin Albuterol/Ipratropium 3 ml 02/27/25 09:18 Ipratropium 0.5 Mg/Albuterol Sulfate 2.5 Mg (Base) Ampul.Neb 3 Ml INHALATION Q6HRT PRN Wheezing Aspirin 81 mg 02/26/25 08:00 03/07/25 09:44 Aspirin 81 Mg Chewable Tablet PO Not Given DAILY@0800 STEPHANIE Atorvastatin Calcium 20 mg 02/25/25 21:00 03/06/25 20:40 Atorvastatin 20 Mg Tablet PO 20 mg QHS STEPHANIE Administration Calcium Carbonate 200 mg 02/25/25 16:43 02/25/25 23:14 Calcium Carbonate (Tums) 500 Mg (200 Mg Elemental) PO 200 mg Q6H PRN Administration Indigestion Dextrose 12.5 gm 03/02/25 23:56 Dextrose 50% 25 Gm/50 Ml Syringe IV PUSH PRN PRN Hypoglycemia Protocol Enoxaparin Sodium 40 mg 02/25/25 21:00 03/06/25 20:39 Enoxaparin 40 Mg/0.4 Ml Syringe SUB-Q 40 mg HS STEPHANIE Administration Famotidine 20 mg 02/26/25 09:00 03/07/25 10:19 Famotidine 20 Mg/2 Ml Vial IV PUSH 20 mg Q12HR STEPHANIE Administration Fish Oil 1 gm 02/25/25 21:00 03/07/25 09:45 [place] 3 Polyunsat Fatty Acids 1 Gm Cap PO Not Given Q12HR STEPHANIE Fluticasone/Umeclidinium/Vilanterol 1 puff 02/26/25 08:00 03/07/25 09:29 Fluticasone/Umeclidin/Vilanter 100-62.5-25 Mcg Ellipta INHALATION Not Given DAILYRT STEPHANIE Folic Acid 1 mg 02/26/25 09:00 03/07/25 09:44 Folic Acid 1 Mg Tablet PO Not Given DAILY STEPHANIE Glucagon 1 mg 03/02/25 23:56 Glucagon For Inj 1 Mg Vial IM PRN PRN Hypoglycemia Protocol Glucose 15 gm 03/02/25 23:56 Glucose Oral Gel 15 Gm Of Glucse In 37.5 Gm Tube PO PRN PRN Hypoglycemia Protocol Dextrose 1,000 mls @ 100 mls/hr 03/02/25 23:56 Dextrose 5% 1,000 Ml IVPB PRN PRN Hypoglycemia Protocol Dextrose 1,000 mls @ 50 mls/hr 03/06/25 15:35 Dextrose 10% IV CONT .Q20H PRN if PN is interrupted Amino Acids/Electrolytes/Dextrose 1,000 mls @ 80 mls/hr 03/06/25 17:00 03/07/25 04:46 Clinimix E 4.25%/5% Solution IV CONT 80 mls/hr .[id number] STEPHANIE Administration Protocol Fat Emulsion Intravenous 250 mls @ 20.833 mls/hr 03/06/25 17:00 03/06/25 17:54 Lipids 20% IVPB 20.83 mls/hr Q24H STEPHANIE Administration Insulin Aspart 2 - 5 units 03/06/25 18:00 03/07/25 05:34 Insulin Aspart (*Bkc) 100 Units/Ml SUB-Q Not Given Q6HR STEPHANIE Protocol Loratadine 10 mg 02/26/25 09:00 03/07/25 09:44 Loratadine 10 Mg Tablet PO Not Given DAILY STEPHANIE Losartan Potassium 25 mg 02/26/25 09:00 03/07/25 09:44 Losartan Potassium 25 Mg Tablet BY MOUTH Not Given DAILY STEPHANIE Thiamine HCl 100 mg 02/26/25 09:00 03/07/25 09:45 Thiamine Hcl 100 Mg Tablet PO Not Given DAILY [facility] Radiology Results: ITS Impressions Chest X-Ray 02/25/25 11:04 IMPRESSION: 1. Possible small developing consolidation along the left heart border. Head CT 03/06/25 14:18 IMPRESSION: 1. No acute intracranial findings. Significant chronic ischemic changes particularly involving basal ganglia on the left side with internal capsule with presence of old lacunar infarct. 2. Sinusitis as described above. Labs Labs: Laboratory Results - last 24 hr 03/06/25 03/06/25 03/07/25 16:14 18:35 00:37 WBC 9.3 RBC 4.12 L Hgb 12.7 L Hct 37.5 L MCV 91.0 MCH 30.8 MCHC 33.9 RDW 13.6 Plt Count 186 MPV 9.9 Immature Gran % (Auto) 0.6 H Neut % (Auto) 78.2 H Lymph % (Auto) 6.1 L [place] % (Auto) 11.6 H Eos % (Auto) 3.3 Baso % (Auto) 0.2 Lymph # (Auto) 0.57 L [place] # (Auto) 1.1 H Eos # (Auto) 0.3 Baso # (Auto) 0.0 Abs Immat Gran (auto) 0.06 H Absolute Neuts (auto) 7.3 H Absolute Nucleated RBC 0.000 Nucleated RBC % 0.0 APTT 28.4 Sodium 138 Potassium 3.4 Chloride 108 H Carbon Dioxide 27 Anion Gap 3 L BUN 6 L Creatinine 0.61 L Estim Creat Clear Calc 63 Estimated GFR > 60 Glucose 114 H POC Capillary Glucose 139 H 124 H Calcium 8.5 Phosphorus Magnesium 1.7 Transferrin 166 L Total Bilirubin 0.8 AST 36 ALT 34 Alkaline Phosphatase 31 L Total Protein 6.2 L Albumin 3.3 L Triglycerides 03/07/25 03/07/25 06:05 06:57 WBC 14.3 H RBC 4.81 Hgb 14.8 Hct 44.0 MCV 91.5 MCH 30.8 MCHC 33.6 RDW 13.6 Plt Count 234 MPV 10.3 Immature Gran % (Auto) 0.7 H Neut % (Auto) 82.6 H Lymph % (Auto) 4.7 L [place] % (Auto) 10.2 H Eos % (Auto) 1.7 Baso % (Auto) 0.1 L Lymph # (Auto) 0.68 L [place] # (Auto) 1.5 H Eos # (Auto) 0.3 Baso # (Auto) 0.0 Abs Immat Gran (auto) 0.10 H Absolute Neuts (auto) 11.8 H Absolute Nucleated RBC 0.000 Nucleated RBC % 0.0 APTT Sodium 134 L Potassium 4.0 Chloride 101 Carbon Dioxide 27 Anion Gap 6 BUN 13 D Creatinine 0.66 L Estim Creat Clear Calc 59 Estimated GFR > 60 Glucose 146 H POC Capillary Glucose 156 H Calcium 8.6 Phosphorus 4.0 Magnesium 1.9 Transferrin Total Bilirubin 0.8 AST 40 ALT 36 Alkaline Phosphatase 31 L Total Protein 7.1 Albumin 3.8 Triglycerides 148 Quality VTE Prophylaxis VTE prophylaxis: pharmacologic ordered
[2025-03-07 14:00] VITALS: BP 111/66; PULSE 106; RESP 18; TEMP 36.9; O2SAT 95
--- NOTE | 2025-03-07 15:21 | PCOTNOTE ---
Per RN, pt has been sleeping all day and would like to not have him be disturbed. Will continue per poc duration/frequency.
[2025-03-07] MEDS: FAT EMULSIONS IV 20% 250 ML 20.83 ML IVPB (17:08)
[2025-03-07] MEDS: ENOXAPARIN 40 MG/0.4 ML SYRINGE SUB-Q (21:51)
[2025-03-07 22:00] VITALS: BP 119/71; PULSE 109; RESP 18; TEMP 37.8; O2SAT 95
[2025-03-08 01:33] VITALS: TEMP 37.4
[2025-03-08] MEDS: AMINO ACIDS 4.25%/D5W/LYTES/CA 1,000 ML 80 ML IV CONT ×2 (05:39→18:46)
[2025-03-08 06:00] VITALS: BP 108/68; PULSE 109; RESP 16; TEMP 37.1; O2SAT 100
--- NOTE | 2025-03-08 06:21 | PC.NURSE ---
0620: pt febrile; Tylenol suppository given. Other vitals stable. NPO, PPN running.
[2025-03-08 06:24] LABS: Hematocrit 41.8 % (42.0-52.0); Hemoglobin 14.0 g/dL (14.0-18.0); Immature Granulocyte Percent A 0.7 % (0-0.5); Lymphocytes Absolute Auto 1.03 K/mm3 (0.9-3.2); Mean Corpuscular HGB Conc 33.5 g/dl (32-36); Mean Corpuscular Hemoglobin 31.1 pg (26-34); Mean Corpuscular Volume 92.9 fl (80-100); Nucleated Red Blood Cells Absolute Auto 0.000 K/mm3 (0.0-0.012); Nucleated Red Blood Cells Perc 0.0 % (0.0-0.2); Platelet Count Result 225 k/mm3 (150-375); Red Blood Count 4.50 M/mm3 (4.6-6.20); White Blood Count 14.8 K/mm3 (4.5-10.0)
[2025-03-08 06:37] VITALS: TEMP 37.9
[2025-03-08] MEDS: ACETAMINOPHEN 650 MG SUPPOSITORY RECTAL (06:37)
[2025-03-08 06:42] LABS: INR 1.2; Prothrombin Time 15.0 Seconds (11.1-14.7)
[2025-03-08 06:43] LABS: Alanine Aminotransferase 27 U/L (6-50); Albumin Level 3.2 g/dL (3.5-5.1); Alkaline Phosphatase 27 U/L (38-126); Anion Gap 2 mmol/L (4-12); Aspartate Amino Transferase 39 U/L (17-59); Bilirubin,Total 0.8 mg/dL (0.2-1.3); Blood Urea Nitrogen 21 mg/dL (9-20); Calcium 8.1 mg/dL (8.4-10.2); Carbon Dioxide 27 mmol/L (22-30); Chloride 103 mmol/L (98-107); Estimated CRCL calculation 58 ml/min; Estimated Glomerular Filt Rate > 60; Glucose 110 mg/dL (65-110); Magnesium 2.1 mg/dL (1.6-2.3); Partial Thromboplastin Time 37.0 Seconds (22.3-36.8); Potassium 3.9 mmol/L (3.4-5.0); Sodium 132 mmol/L (137-145); Total Protein 6.3 g/dL (6.3-8.2)
[2025-03-08 06:59] LABS: Transferrin 151 mg/dL (206-381)
--- NOTE | 2025-03-08 09:07 | PCRCNOTE ---
Patient unable to follow commands. Cass Koo
--- NOTE | 2025-03-08 09:14 | PCOTNOTE ---
Attempted to see Patient. Patient sleeping, somewhat difficulty to arouse, when attempting to move the Patient for activity, shaking head no. Will try back at a later time.
[2025-03-08] MEDS: FAMOTIDINE 20 MG/2 ML VIAL IV PUSH ×2 (09:47→21:00)
--- NOTE | 2025-03-08 10:42 | PCNFU ---
Nutrition Follow-Up Complete: Inadequate Oral Intake as related to ETOH Abuse as evidenced by poor po intake. Goal:meet estimated nutritional needs Pt progressing towards goal via alternative nutrition support Pt current nutrition is Regular, PPN clinimix E 4.25/5 @ 80ml/hr. Nutrition recommendation: continue with current plan of care Last recorded weight is 48.4 kg. Bowel Motility: +BM 03/08 Labs Reviewed: HCT:40.8, Alb:3.2, Na:132, BUN:21, Cr:0.67, Glu:144 Meds Noted: thiamin, folic acid, MVI Skin: WNL Additional Notes: pt had a dobhoff placed saturday, tube feedings were started but pt pulled tube out. PPN initiated, currently running at 80ml/hr and providing 1152kcals, 82g protein (60% estimated energy needs, 115% protein needs) Will monitor weight, labs, skin, diet orders, follow up every Saturday and Saturday
--- NOTE | 2025-03-08 11:07 | PCSTNOTE ---
Please refer to the Bedside Swallow Evaluation in the EMR. Please note, silent aspiration cannot be ruled out at bedside. Pt is a 74-year-old male with a past medical history of Encephalomalacia, HTN, HLD, thoracic aortic aneurysm, CVA, COPD, and alcohol abuse. He presented this admission to the ED on 02/25/2025 with complaints of increased dyspnea. Bedside Swallow Evaluation orders placed 03/08/25 after discussion with RN stating that he was notably more alert this date. RN stated that pt is now following directions more frequently and is asking for his significant other frequently. RN agreeable to bedside swallow evaluation. Upon entry into pt's room, pt was asleep; however, woke with moderate verbal cues from the [employer]. An oral mechanism exam was completed this date and was remarkable for pt being edentulous. Pt was noted to follow commands with minimal repetition this date and was more alert and interactive with the [employer] than the previous evaluation on 03/05/25. PO trials included ice chips x4, thin liquid via teaspoon x3, and pudding x2. Pt was noted to demonstrate immediate coughing after 2 of 3 teaspoons of thin liquids and after pudding trials x2. This could be indicative of penetration and/or aspiration. No overt signs and symptoms of aspiration were observed with trials of ice chips x4. Given pt's presentation at the bedside and increase in alertness, a modified barium swallow study is recommended to be completed to further assess the safety of this pt's swallow and recommend a diet. Recommendations: 1. NPO; medications non-orally; moist swabs and ice chips for comfort when pt is awake and with RN supervision 2. MBS to be completed to further assess pt's swallow function RN notified of these results and agreeable; Message left for MD with recommendations
--- NOTE | 2025-03-08 11:08 | P.PNIM_ITS ---
Assessment and Plan Assessment and Plan (1) Acute exacerbation of chronic obstructive pulmonary disease: Code(s): J44.1 - Chronic obstructive pulmonary disease with (acute) exacerbation Status: Acute Assessment and Plan: Patient is saturating well on room air Continue bronchodilators, fluticasone Initially treated with steroid and doxycycline This seems stable now (2) Agitation: Code(s): R45.1 - Restlessness and agitation Status: Acute Assessment and Plan: Likely combination of alcohol withdrawal and delirium Continue Librium Off Precedex P.r.n. Ativan Monitor Agitation has resolved. He is more and hypoactive delirium site. Doubt alcohol withdrawal ongoing since he is more than a week of admission CT head is negative MRI brain with no acute findings, limited with motion (3) Alcohol withdrawal: Code(s): F10.939 - Alcohol use, unspecified with withdrawal, unspecified Status: Acute Assessment and Plan: Continue in thiamine and folic acid (4) Delirium: Code(s): R41.0 - Disorientation, unspecified Status: Acute Assessment and Plan: See above MRI brain negative for acute stroke. 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 Will continue physical therapy Dysphagia NG placed for feeding however had pulled out. Restrain p.r.n. re- attempt to NG placement and tube feed. PPN ordered for now. Will attempt MBS as he is more awake today. Currently remains NPO Fever mild spikes with mild leukocytosis noted. CT with sinusitis noted. Has some cough. Chest x-ray obtained today. Will also get UA. Will start on doxycycline and metronidazole. Has allergy to penicillin with throat swelling. DVT prophylaxis -Lovenox Stress ulcer prophylaxis -Pepcid Nutrition NPO as failed swallow evaluation Code Status - Full Code Subjective Date/time seen: 03/08/25 11:08 Interval history: 74-year-old male with a past medical history of Encephalomalacia, HTN, HLD, thoracic aortic aneurysm, CVA, COPD, alcohol abuse presents to the ED on 02/25/2025 with complaints of increased dyspnea. 03/01: Patient was seen during the morning rounds today. Patient is a slight withdrawal. Requiring soft restraint. No shortness breath or chest pain. 03/02: Patient was seen during the morning rounds today. Less withdrawal, no sob or chest pain 03/03: Patient was seen during morning rounds today. No new overnight complaints. No shortness of breath or chest pain. Withdrawal is better. 03/04/2025 Patient was seen during morning rounds today. Patient is feeling better. No shortness of breath or chest pain. Patient withdrawal is much better. 03/05/2025: No overnight events. Patient failed swallow evaluation this a.m.. Patient is still drowsy not agitated. Discussed with nursing staff 03/06/2025: Overnight he pulled all the NG is there has been placed. Still confused with slurred speech. Work with therapy. 03/07/2025: Patient more somnolent today. No other overnight events. CT head was reviewed. Labs reviewed. Remains on PPI and that was ordered yesterday. 03/08/2025: Patient more awake today. Having some cough. Was also febrile la st night. Remains on PPN. Review of Systems Review of Systems: All systems reviewed & are unremarkable except as noted in HPI and below Exam Narrative: General: Pt is awake and alert some slurred speech weak right side Lungs/Chest: Trachea central course BS B/L, No crackles or wheezing. Cardiac: RRR. Normal S1 S2. No murmurs Circulation: Pedal pulses are intact and symmetrical. Abdomen: Normal bowel sounds.. Soft. NT. ND. Extremities: No clubbing, cyanosis or edema. Warm : Samson in place Neurologic: Patient is awake and alert, oriented to place and person not to time, right side weak, generalized weakness Skin: No Rash Objective Data Vital Signs Vital Signs: Vital Signs - 24 hr 03/07/25 14:00 03/07/25 22:00 03/08/25 01:33 Temperature 98.5 F 100.1 F H 99.3 F Pulse Rate 106 H 109 H Respiratory Rate 18 18 Blood Pressure 111/66 119/71 Pulse Oximetry 95 95 03/08/25 06:00 03/08/25 06:37 Temperature 98.8 F 100.2 F H Pulse Rate 109 H Respiratory Rate 16 Blood Pressure 108/68 Pulse Oximetry 100 Intake/Output Intake/Output: Intake & Output 03/05/25 03/06/25 03/07/25 03/08/25 23:59 23:59 23:59 23:59 Intake Total 2049 1561.2 2808.7 1000 Balance 2049 1561.2 2808.7 1000 Meds/Results Medications: Active Medications Generic Name Dose Route Start Last Admin Trade Name Freq PRN Reason Stop Dose Admin Acetaminophen 650 mg 03/08/25 06:00 03/08/25 06:37 Acetaminophen 650 Mg Suppository RECTAL 650 mg Q6H PRN Administration Mild Pain (1-3) or Fever Albuterol/Ipratropium 3 ml 02/27/25 09:18 Ipratropium 0.5 Mg/Albuterol Sulfate 2.5 Mg (Base) Ampul.Neb 3 Ml INHALATION Q6HRT PRN Wheezing Aspirin 81 mg 02/26/25 08:00 03/08/25 09:47 Aspirin 81 Mg Chewable Tablet PO Not Given DAILY@0800 STEPHANIE Atorvastatin Calcium 20 mg 02/25/25 21:00 03/07/25 21:52 Atorvastatin 20 Mg Tablet PO Not Given QHS STEPHANIE Calcium Carbonate 200 mg 02/25/25 16:43 02/25/25 23:14 Calcium Carbonate (Tums) 500 Mg (200 Mg Elemental) PO 200 mg Q6H PRN Administration Indigestion Dextrose 12.5 gm 03/02/25 23:56 Dextrose 50% 25 Gm/50 Ml Syringe IV PUSH PRN PRN Hypoglycemia Protocol Enoxaparin Sodium 40 mg 02/25/25 21:00 03/07/25 21:51 Enoxaparin 40 Mg/0.4 Ml Syringe SUB-Q 40 mg HS STEPHANIE Administration Famotidine 20 mg 02/26/25 09:00 03/08/25 09:47 Famotidine 20 Mg/2 Ml Vial IV PUSH 20 mg Q12HR STEPHANIE Administration Fish Oil 1 gm 02/25/25 21:00 03/08/25 09:48 [place] 3 Polyunsat Fatty Acids 1 Gm Cap PO Not Given Q12HR STEPHANIE Folic Acid 1 mg 02/26/25 09:00 03/08/25 09:48 Folic Acid 1 Mg Tablet PO Not Given DAILY STEPHANIE Glucagon 1 mg 03/02/25 23:56 Glucagon For Inj 1 Mg Vial IM PRN PRN Hypoglycemia Protocol Glucose 15 gm 03/02/25 23:56 Glucose Oral Gel 15 Gm Of Glucse In 37.5 Gm Tube PO PRN PRN Hypoglycemia Protocol Dextrose 1,000 mls @ 100 mls/hr 03/02/25 23:56 Dextrose 5% 1,000 Ml IVPB PRN PRN Hypoglycemia Protocol Dextrose 1,000 mls @ 50 mls/hr 03/06/25 15:35 Dextrose 10% IV CONT .Q20H PRN if PN is interrupted Amino Acids/Electrolytes/Dextrose 1,000 mls @ 80 mls/hr 03/06/25 17:00 03/08/25 05:39 Clinimix E 4.25%/5% Solution IV CONT 80 mls/hr .[id number] STEPHANIE Administration Protocol Fat Emulsion Intravenous 250 mls @ 20.833 mls/hr 03/06/25 17:00 03/07/25 17:08 Lipids 20% IVPB 20.83 mls/hr Q24H STEPHANIE Administration Metronidazole 500 mg in 100 mls @ 100 mls/hr 03/08/25 12:00 Flagyl 500 Mg/Iso Soln 100 Ml IVPB Q6H STEPHANIE Doxycycline Hyclate 100 mg/ 100 mls @ 100 mls/hr 03/08/25 11:05 Sodium Chloride IVPB Q12H STEPHANIE Insulin Aspart 2 - 5 units 03/06/25 18:00 03/08/25 01:28 Insulin Aspart (*Bkc) 100 Units/Ml SUB-Q Not Given Q6HR STEPHANIE Protocol Loratadine 10 mg 02/26/25 09:00 03/08/25 09:48 Loratadine 10 Mg Tablet PO Not Given DAILY [facility] Losartan Potassium 25 mg 02/26/25 09:00 03/08/25 09:48 Losartan Potassium 25 Mg Tablet BY MOUTH Not Given DAILY [facility] Thiamine HCl 100 mg 02/26/25 09:00 03/08/25 09:48 Thiamine Hcl 100 Mg Tablet PO Not Given DAILY [facility] Radiology Results: ITS Impressions Head CT 03/06/25 14:18 IMPRESSION: 1. No acute intracranial findings. Significant chronic ischemic changes particularly involving basal ganglia on the left side with internal capsule with presence of old lacunar infarct. 2. Sinusitis as described above. Brain MRI 03/07/25 16:03 IMPRESSION: 1. Significantly compromised examination due to motion artifact on multiple sequences. 2. No evidence of acute ischemia on diffusion sequence. Presence of significant chronic ischemic changes as described above. Abdomen X-Ray 03/07/25 20:14 IMPRESSION: 1. Nasogastric tube in stomach. Chest X-Ray 03/08/25 10:17 Impression: 1: Mild interstitial infiltrates bilaterally, likely chronic. Mild edema not excluded. Labs Labs: Laboratory Results - last 24 hr 03/07/25 03/07/25 03/08/25 13:31 17:58 01:00 WBC RBC Hgb Hct MCV MCH MCHC RDW Plt Count MPV Immature Gran % (Auto) Neut % (Auto) Lymph % (Auto) [place] % (Auto) Eos % (Auto) Baso % (Auto) Lymph # (Auto) [place] # (Auto) Eos # (Auto) Baso # (Auto) Abs Immat Gran (auto) Absolute Neuts (auto) Absolute Nucleated RBC Nucleated RBC % PT INR APTT Sodium Potassium Chloride Carbon Dioxide Anion Gap BUN Creatinine Estim Creat Clear Calc Estimated GFR Glucose POC Capillary Glucose 156 H 113 H 144 H Calcium Phosphorus Magnesium Transferrin Total Bilirubin AST ALT Alkaline Phosphatase Total Protein Albumin 03/08/25 06:06 WBC 14.8 H RBC 4.50 L Hgb 14.0 Hct 41.8 L MCV 92.9 MCH 31.1 MCHC 33.5 RDW 13.8 Plt Count 225 MPV 10.5 H Immature Gran % (Auto) 0.7 H Neut % (Auto) 81.0 H Lymph % (Auto) 7.0 L [place] % (Auto) 9.5 H Eos % (Auto) 1.7 Baso % (Auto) 0.1 L Lymph # (Auto) 1.03 [place] # (Auto) 1.4 H Eos # (Auto) 0.3 Baso # (Auto) 0.0 Abs Immat Gran (auto) 0.11 H Absolute Neuts (auto) 12.0 H Absolute Nucleated RBC 0.000 Nucleated RBC % 0.0 PT 15.0 H INR 1.2 APTT 37.0 H Sodium 132 L Potassium 3.9 Chloride 103 Carbon Dioxide 27 Anion Gap 2 L BUN 21 H Creatinine 0.67 L Estim Creat Clear Calc 58 Estimated GFR > 60 Glucose 110 POC Capillary Glucose Calcium 8.1 L Phosphorus 4.2 Magnesium 2.1 Transferrin 151 L Total Bilirubin 0.8 AST 39 ALT 27 Alkaline Phosphatase 27 L Total Protein 6.3 Albumin 3.2 L Quality VTE Prophylaxis VTE prophylaxis: pharmacologic ordered
[2025-03-08] MEDS: DOXYCYCLINE IV 100 MG in SODIUM CHLORIDE 0.9% IV 100 ML IVPB ×2 (12:01→21:00)
[2025-03-08] MEDS: metroNIDAZOLE 500 MG/ISO 100ML 500 MG/100 ML BAG 100 MG IVPB ×2 (13:08→17:38)
[2025-03-08 14:00] VITALS: BP 126/75; PULSE 111; RESP 16; TEMP 36.7; O2SAT 99
[2025-03-08 15:55] LABS: Add Urine Microscopic? NO; Appearance Urine Clear (Clear); Glucose Urine UA Negative (Negative); Leukocyte Esterase Ur Negative LEU/UL (Negative); Nitrate Urine Negative (Negative); Specific Grav Ur 1.014 (1.001-1.035)
[2025-03-08] MEDS: FAT EMULSIONS IV 20% 250 ML 20.83 ML IVPB (17:13)
[2025-03-08] MEDS: ENOXAPARIN 40 MG/0.4 ML SYRINGE SUB-Q (21:00)
[2025-03-08] MEDS: KETOROLAC 30 MG/ML VIAL (*BKC) IV PUSH (21:00)
[2025-03-08 22:00] VITALS: BP 154/94; PULSE 110; RESP 18; TEMP 36.4; O2SAT 97
[2025-03-09] MEDS: metroNIDAZOLE 500 MG/ISO 100ML 500 MG/100 ML BAG 100 MG IVPB ×3 (05:10→12:07)
[2025-03-09 06:00] VITALS: BP 147/90; PULSE 94; RESP 18; TEMP 36.6; O2SAT 100
[2025-03-09 06:20] LABS: Hematocrit 40.3 % (42.0-52.0); Hemoglobin 13.4 g/dL (14.0-18.0); Immature Granulocyte Percent A 0.8 % (0-0.5); Lymphocytes Absolute Auto 1.12 K/mm3 (0.9-3.2); Mean Corpuscular HGB Conc 33.3 g/dl (32-36); Mean Corpuscular Hemoglobin 30.5 pg (26-34); Mean Corpuscular Volume 91.6 fl (80-100); Nucleated Red Blood Cells Absolute Auto 0.000 K/mm3 (0.0-0.012); Nucleated Red Blood Cells Perc 0.0 % (0.0-0.2); Platelet Count Result 256 k/mm3 (150-375); Red Blood Count 4.40 M/mm3 (4.6-6.20); White Blood Count 13.5 K/mm3 (4.5-10.0)
[2025-03-09 06:35] LABS: Alanine Aminotransferase 25 U/L (6-50); Albumin Level 3.3 g/dL (3.5-5.1); Alkaline Phosphatase 24 U/L (38-126); Anion Gap 7 mmol/L (4-12); Aspartate Amino Transferase 34 U/L (17-59); Bilirubin,Total 0.8 mg/dL (0.2-1.3); Blood Urea Nitrogen 34 mg/dL (9-20); Calcium 8.4 mg/dL (8.4-10.2); Carbon Dioxide 23 mmol/L (22-30); Chloride 102 mmol/L (98-107); Estimated CRCL calculation 44 ml/min; Estimated Glomerular Filt Rate > 60; Glucose 96 mg/dL (65-110); Magnesium 2.2 mg/dL (1.6-2.3); Potassium 4.0 mmol/L (3.4-5.0); Sodium 132 mmol/L (137-145); Total Protein 6.5 g/dL (6.3-8.2)
[2025-03-09] MEDS: DOXYCYCLINE IV 100 MG in SODIUM CHLORIDE 0.9% IV 100 ML IVPB (09:12)
[2025-03-09] MEDS: FAMOTIDINE 20 MG/2 ML VIAL IV PUSH (09:13)
[2025-03-09 11:18] LABS: Triglycerides 123 mg/dL (<150)
[2025-03-09] MEDS: DEXTROSE 10% 1,000 ML 50 ML IV CONT (11:27)
--- NOTE | 2025-03-09 13:33 | PCNFU ---
Nutrition Follow-Up Complete: Inadequate Oral Intake as related to ETOH Abuse as evidenced by poor po intake. Goal:meet estimated nutritional needs Pt not meeting goal at this time Pt current nutrition is NPO, PPN on hold. Nutrition recommendation: await MBS results and restart PPN if NPO or initiate diet if able to take food PO Last recorded weight is 48.4 kg. Bowel Motility: +BM 03/09 Labs Reviewed: HCT:41.8, Alb:3.2, NA:132, BUN:21, Cr:0.67, Glu:144 Meds Noted: thiamin, folic acid, MVI Skin: WNL Additional Notes: Pt remains NPO, to have a MBS this afternoon for possible swallow function. Pt PPN on hold at this time due to issues with the IV per nursing. Recommend to restart if pt is to remain NPO. Otherwise advance diet if able to following MBS and speech evaluation. Will monitor weight, labs, skin, diet orders, meds every Saturday and Saturday
[2025-03-09 14:00] VITALS: BP 120/71; PULSE 97; RESP 20; TEMP 36.5; O2SAT 100
--- NOTE | 2025-03-09 14:55 | P.PNIM_ITS ---
Assessment and Plan Assessment and Plan (1) Acute exacerbation of chronic obstructive pulmonary disease: Code(s): J44.1 - Chronic obstructive pulmonary disease with (acute) exacerbation Status: Acute Assessment and Plan: Patient is saturating well on room air Continue bronchodilators, fluticasone Initially treated with steroid and doxycycline This seems stable now (2) Agitation: Code(s): R45.1 - Restlessness and agitation Status: Acute Assessment and Plan: Likely combination of alcohol withdrawal and delirium Continue Librium Off Precedex P.r.n. Ativan Monitor Agitation has resolved. He is more and hypoactive delirium site. Doubt alcohol withdrawal ongoing since he is more than a week of admission CT head is negative MRI brain with no acute findings, limited with motion Much improved now (3) Alcohol withdrawal: Code(s): F10.939 - Alcohol use, unspecified with withdrawal, unspecified Status: Acute Assessment and Plan: Continue in thiamine and folic acid (4) Delirium: Code(s): R41.0 - Disorientation, unspecified Status: Acute Assessment and Plan: See above MRI brain negative for acute stroke. 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 Will continue physical therapy Dysphagia NG placed for feeding however had pulled out. Restrain p.r.n. re- attempt to NG placement and tube feed. PPN ordered for now. Re-attempted MBS 03/09/2025 and did well. Will start on a diet. Will stop PPN Fever mild spikes with mild leukocytosis noted. CT with sinusitis noted. Has some cough. Chest x-ray negative UA negative Started on doxycycline and metronidazole. Has allergy to penicillin with throat swelling. Right arm thrombophlebitis. Will check venous duplex DVT prophylaxis -Lovenox Stress ulcer prophylaxis -Pepcid Nutrition NPO as failed swallow evaluation Code Status - Full Code Subjective Date/time seen: 03/09/25 14:55 Interval history: 74-year-old male with a past medical history of Encephalomalacia, HTN, HLD, thoracic aortic aneurysm, CVA, COPD, alcohol abuse presents to the ED on 02/25/2025 with complaints of increased dyspnea. 03/01: Patient was seen during the morning rounds today. Patient is a slight withdrawal. Requiring soft restraint. No shortness breath or chest pain. 03/02: Patient was seen during the morning rounds today. Less withdrawal, no sob or chest pain 03/03: Patient was seen during morning rounds today. No new overnight complaints. No shortness of breath or chest pain. Withdrawal is better. 03/04/2025 Patient was seen during morning rounds today. Patient is feeling better. No shortness of breath or chest pain. Patient withdrawal is much better. 03/05/2025: No overnight events. Patient failed swallow evaluation this a.m.. Patient is still drowsy not agitated. Discussed with nursing staff 03/06/2025: Overnight he pulled all the NG is there has been placed. Still confused with slurred speech. Work with therapy. 03/07/2025: Patient more somnolent today. No other overnight events. CT head was reviewed. Labs reviewed. Remains on PPI and that was ordered yesterday. 03/08/2025: Patient more awake today. Having some cough. Was also febrile last night. Remains on PPN. 03/09/2025: Patient is much more awake and alert oriented. Feeling better wants to go home. MBS performed today and did not aspirate. Will be started on diet. No fever. Right arm swollen due to thrombophlebitis. Review of Systems Review of Systems: All systems reviewed & are unremarkable except as noted in HPI and below Exam Narrative: General: Pt is awake and alert oriented x3, not in acute distress Lungs/Chest: Trachea central course BS B/L, No crackles or wheezing. Cardiac: RRR. Normal S1 S2. No murmurs Circulation: Pedal pulses are intact and symmetrical. Abdomen: Normal bowel sounds.. Soft. NT. ND. Extremities: No clubbing, cyanosis or edema. Warm : Samson in place right arm swelling Neurologic: Patient is awake and alert, oriented to time place and person right side weak, much stronger Skin: No Rash Objective Data Vital Signs Vital Signs: Vital Signs - 24 hr 03/08/25 20:00 03/08/25 22:00 03/09/25 06:00 Temperature 97.5 F L 97.8 F Pulse Rate 110 H 94 Respiratory Rate 18 18 Blood Pressure 154/94 H 147/90 H Pulse Oximetry 97 100 Oxygen Delivery Room Air 03/09/25 09:10 Temperature Pulse Rate Respiratory Rate Blood Pressure Pulse Oximetry Oxygen Delivery Room Air Intake/Output Intake/Output: Intake & Output 03/06/25 03/07/25 03/08/25 03/09/25 23:59 23:59 23:59 23:59 Intake Total 1561.2 2808.7 2650 1400 Output Total 400 Balance 1561.2 2808.7 2250 1400 Meds/Results Medications: Active Medications Generic Name Dose Route Start Last Admin Trade Name Freq PRN Reason Stop Dose Admin Acetaminophen 650 mg 03/08/25 06:00 03/08/25 06:37 Acetaminophen 650 Mg Suppository RECTAL 650 mg Q6H PRN Administration Mild Pain (1-3) or Fever Albuterol/Ipratropium 3 ml 02/27/25 09:18 Ipratropium 0.5 Mg/Albuterol Sulfate 2.5 Mg (Base) Ampul.Neb 3 Ml INHALATION Q6HRT PRN Wheezing Aspirin 81 mg 02/26/25 08:00 03/08/25 09:47 Aspirin 81 Mg Chewable Tablet PO Not Given DAILY@0800 STEPHANIE Atorvastatin Calcium 20 mg 02/25/25 21:00 03/09/25 02:28 Atorvastatin 20 Mg Tablet PO Not Given QHS STEPHANIE Calcium Carbonate 200 mg 02/25/25 16:43 02/25/25 23:14 Calcium Carbonate (Tums) 500 Mg (200 Mg Elemental) PO 200 mg Q6H PRN Administration Indigestion Dextrose 12.5 gm 03/02/25 23:56 Dextrose 50% 25 Gm/50 Ml Syringe IV PUSH PRN PRN Hypoglycemia Protocol Enoxaparin Sodium 40 mg 02/25/25 21:00 03/08/25 21:00 Enoxaparin 40 Mg/0.4 Ml Syringe SUB-Q 40 mg HS STEPHANIE Administration Famotidine 20 mg 02/26/25 09:00 03/09/25 09:13 Famotidine 20 Mg/2 Ml Vial IV PUSH 20 mg Q12HR STEPHANIE Administration Fish Oil 1 gm 02/25/25 21:00 03/09/25 02:30 [place] 3 Polyunsat Fatty Acids 1 Gm Cap PO Not Given Q12HR STEPHANIE Folic Acid 1 mg 02/26/25 09:00 03/08/25 09:48 Folic Acid 1 Mg Tablet PO Not Given DAILY STEPHANIE Glucagon 1 mg 03/02/25 23:56 Glucagon For Inj 1 Mg Vial IM PRN PRN Hypoglycemia Protocol Glucose 15 gm 03/02/25 23:56 Glucose Oral Gel 15 Gm Of Glucse In 37.5 Gm Tube PO PRN PRN Hypoglycemia Protocol Dextrose 1,000 mls @ 100 mls/hr 03/02/25 23:56 Dextrose 5% 1,000 Ml IVPB PRN PRN Hypoglycemia Protocol Dextrose 1,000 mls @ 50 mls/hr 03/06/25 15:35 03/09/25 11:27 Dextrose 10% IV CONT 50 mls/hr .Q20H PRN Administration if PN is interrupted Amino Acids/Electrolytes/Dextrose 1,000 mls @ 80 mls/hr 03/06/25 17:00 03/09/25 11:25 Clinimix E 4.25%/5% Solution IV CONT Infused .[id number] STEPHANIE Infusion Protocol Fat Emulsion Intravenous 250 mls @ 20.833 mls/hr 03/06/25 17:00 03/08/25 17:13 Lipids 20% IVPB 20.83 mls/hr Q24H STEPHANIE Administration Metronidazole 500 mg in 100 mls @ 100 mls/hr 03/08/25 12:00 03/09/25 13:07 Flagyl 500 Mg/Iso Soln 100 Ml IVPB Infused Q6H STEPHANIE Infusion Doxycycline Hyclate 100 mg/ 100 mls @ 100 mls/hr 03/08/25 11:30 03/09/25 10:12 Sodium Chloride IVPB Infused Q12HR STEPHANIE Infusion Insulin Aspart 2 - 5 units 03/06/25 18:00 03/09/25 12:06 Insulin Aspart (*Bkc) 100 Units/Ml SUB-Q Not Given Q6HR STEPHANIE Protocol Loratadine 10 mg 02/26/25 09:00 03/08/25 09:48 Loratadine 10 Mg Tablet PO Not Given DAILY [facility] Losartan Potassium 25 mg 02/26/25 09:00 03/08/25 09:48 Losartan Potassium 25 Mg Tablet BY MOUTH Not Given DAILY [facility] Thiamine HCl 100 mg 02/26/25 09:00 03/08/25 09:48 Thiamine Hcl 100 Mg Tablet PO Not Given DAILY STEPHANIE Radiology Results: ITS Impressions Head CT 03/06/25 14:18 IMPRESSION: 1. No acute intracranial findings. Significant chronic ischemic changes particularly involving basal ganglia on the left side with internal capsule with presence of old lacunar infarct. 2. Sinusitis as described above. Brain MRI 03/07/25 16:03 IMPRESSION: 1. Significantly compromised examination due to motion artifact on multiple sequences. 2. No evidence of acute ischemia on diffusion sequence. Presence of significant chronic ischemic changes as described above. Abdomen X-Ray 03/07/25 20:14 IMPRESSION: 1. Nasogastric tube in stomach. Chest X-Ray 03/08/25 10:17 Impression: 1: Mild interstitial infiltrates bilaterally, likely chronic. Mild edema not excluded. Labs Labs: Laboratory Results - last 24 hr 03/08/25 03/08/25 03/08/25 06:33 15:48 18:19 WBC RBC Hgb Hct MCV MCH MCHC RDW Plt Count MPV Immature Gran % (Auto) Neut % (Auto) Lymph % (Auto) [place] % (Auto) Eos % (Auto) Baso % (Auto) Lymph # (Auto) [place] # (Auto) Eos # (Auto) Baso # (Auto) Abs Immat Gran (auto) Absolute Neuts (auto) Absolute Nucleated RBC Nucleated RBC % Sodium Potassium Chloride Carbon Dioxide Anion Gap BUN Creatinine Estim Creat Clear Calc Estimated GFR Glucose POC Capillary Glucose 114 H 89 Calcium Phosphorus Magnesium Total Bilirubin AST ALT Alkaline Phosphatase Total Protein Albumin Triglycerides Urine Color Yellow Urine Appearance Clear Urine pH 5.5 Ur Specific [place] 1.014 Urine Protein Negative Urine Glucose (UA) Negative Urine Ketones Negative Ur Blood (Man) Negative Urine Nitrate Negative Urine Bilirubin Negative Urine Urobilinogen 1.0 Leukocyte Esterase Rfl Negative 03/09/25 03/09/25 03/09/25 00:14 05:26 05:44 WBC 13.5 H RBC 4.40 L Hgb 13.4 L Hct 40.3 L MCV 91.6 MCH 30.5 MCHC 33.3 RDW 13.8 Plt Count 256 MPV 10.8 H Immature Gran % (Auto) 0.8 H Neut % (Auto) 78.3 H Lymph % (Auto) 8.3 L [place] % (Auto) 10.2 H Eos % (Auto) 2.2 Baso % (Auto) 0.2 Lymph # (Auto) 1.12 [place] # (Auto) 1.4 H Eos # (Auto) 0.3 Baso # (Auto) 0.0 Abs Immat Gran (auto) 0.11 H Absolute Neuts (auto) 10.5 H Absolute Nucleated RBC 0.000 Nucleated RBC % 0.0 Sodium 132 L Potassium 4.0 Chloride 102 Carbon Dioxide 23 Anion Gap 7 BUN 34 H D Creatinine 0.90 Estim Creat Clear Calc 44 Estimated GFR > 60 Glucose 96 POC Capillary Glucose 117 H 108 H Calcium 8.4 Phosphorus 5.6 H Magnesium 2.2 Total Bilirubin 0.8 AST 34 ALT 25 Alkaline Phosphatase 24 L Total Protein 6.5 Albumin 3.3 L Triglycerides 123 Urine Color Urine Appearance Urine pH Ur Specific [place] Urine Protein Urine Glucose (UA) Urine Ketones Ur Blood (Man) Urine Nitrate Urine Bilirubin Urine Urobilinogen Leukocyte Esterase [facility] 03/09/25 11:24 WBC RBC Hgb Hct MCV MCH MCHC RDW Plt Count MPV Immature Gran % (Auto) Neut % (Auto) Lymph % (Auto) [place] % (Auto) Eos % (Auto) Baso % (Auto) Lymph # (Auto) [place] # (Auto) Eos # (Auto) Baso # (Auto) Abs Immat Gran (auto) Absolute Neuts (auto) Absolute Nucleated RBC Nucleated RBC % Sodium Potassium Chloride Carbon Dioxide Anion Gap BUN Creatinine Estim Creat Clear Calc Estimated GFR Glucose POC Capillary Glucose 95 Calcium Phosphorus Magnesium Total Bilirubin AST ALT Alkaline Phosphatase Total Protein Albumin Triglycerides Urine Color Urine Appearance Urine pH Ur Specific [place] Urine Protein Urine Glucose (UA) Urine Ketones Ur Blood (Man) Urine Nitrate Urine Bilirubin Urine Urobilinogen Leukocyte Esterase Rfl Quality VTE Prophylaxis VTE prophylaxis: pharmacologic ordered
--- NOTE | 2025-03-09 15:04 | PCSTNOTE ---
Please refer to the Modified Barium Swallow Evaluation in the EMR. The patient was positioned in a lateral view and presented the following consistencies: 5cc/tsp thin liquid barium, thin liquid barium via cup, pudding mixed with barium paste, and cracker coated with barium paste. Oral Stage: Oral preparation and transit was viewed to be timely for all consistencies. Pharyngeal Stage: When presented all the above consistencies swallow initiation was completed in a timely manner without viewed aspiration or penetration. Mild residual was viewed to remain in the vallecula for tsp and cup amounts thin liquid due to reduced lingual pressure. Patient was able to clear when cued to perform a repeat swallow. Recommend: 1. Minced and Moist /Level 5 2. thin Liquid / Level 0 3. Upright with meals 4. Small bites and drinks 5. Frequent Observation 6. Speech services to address tongue base retraction and swallow precautions.
[2025-03-09] MEDS: ATORVASTATIN 20 MG TABLET PO (21:07)
[2025-03-09] MEDS: DOXYCYCLINE HYCLATE 100 MG TABLET PO (21:07)
[2025-03-09] MEDS: ENOXAPARIN 40 MG/0.4 ML SYRINGE SUB-Q (21:07)
[2025-03-09] MEDS: SALINE 0.65% NAS SOLN 44 ML BTL 1 SPRAY NASAL (21:08)
[2025-03-09 21:51] VITALS: BP 103/75; PULSE 101; RESP 20; TEMP 36.3; O2SAT 98
[2025-03-10 00:55] VITALS: PULSE 78; RESP 16; O2SAT 98
[2025-03-10] MEDS: IPRATROPIUM 0.5 MG/ALBUTEROL SULFATE 2.5 MG (BASE) AMPUL.NEB 3 ML INHALATION (00:55)
[2025-03-10 06:00] VITALS: BP 132/82; PULSE 106; RESP 20; TEMP 36.3; O2SAT 99
[2025-03-10 06:53] LABS: Anion Gap 7 mmol/L (4-12); Blood Urea Nitrogen 25 mg/dL (9-20); Calcium 8.4 mg/dL (8.4-10.2); Carbon Dioxide 23 mmol/L (22-30); Chloride 104 mmol/L (98-107); Estimated CRCL calculation 59 ml/min; Estimated Glomerular Filt Rate > 60; Glucose 103 mg/dL (65-110); Potassium 3.9 mmol/L (3.4-5.0); Sodium 134 mmol/L (137-145)
[2025-03-10] MEDS: DOXYCYCLINE HYCLATE 100 MG TABLET PO (08:09)
[2025-03-10] MEDS: LORATADINE 10 MG TABLET PO (08:09)
[2025-03-10] MEDS: OMEGA 3 POLYUNSAT FATTY ACIDS 1 GM CAP PO (08:09)
[2025-03-10] MEDS: LOSARTAN POTASSIUM 25 MG TABLET BY MOUTH (08:09)
[2025-03-10] MEDS: FOLIC ACID 1 MG TABLET PO (08:09)
[2025-03-10] MEDS: THIAMINE HCL 100 MG TABLET PO (08:09)
[2025-03-10] MEDS: ASPIRIN 81 MG CHEWABLE TABLET PO (08:09)
[2025-03-10] MEDS: CALCIUM CARBONATE (TUMS) 500 MG (200 MG ELEMENTAL) PO (08:09)
--- NOTE | 2025-03-10 11:00 | PCNFU ---
Nutrition Follow-Up Complete: Inadequate Oral Intake as related to ETOH Abuse as evidenced by poor po intake. Goal: meet estimated nutritional needs Patient will continue current goal. Pt current nutrition is Minced and Moist, Level 5. Nutrition Recommendations: Ensure Plus High Protein BID. Last recorded weight is 51.8 kg, up from 49.4 kg on admit. Bowel Motility: Last reported BM 03/09 Labs Reviewed: BUN 25, Na 134, Alb 3.3, Hct 40.3, Hgb 13.4 Meds Noted:Thiamine, Folic Acid, MVI Skin: WNL Additional Notes: Patient had MBS 03/09 recommending Minced and Moist, Level 5 diet. Oral Intake has been > 75% of meals. Recommending Ensure Plus High Protein BID for additional 350 kcal and 20 gm protein. Agree with diet orders. Will monitor weight, labs, skin, diet orders, meds every 5 days.
--- NOTE | 2025-03-10 11:51 | P.PNIM_ITS ---
Assessment and Plan Assessment and Plan (1) Acute exacerbation of chronic obstructive pulmonary disease: Code(s): J44.1 - Chronic obstructive pulmonary disease with (acute) exacerbation Status: Acute Assessment and Plan: Patient is saturating well on room air Continue bronchodilators, fluticasone Initially treated with steroid and doxycycline This seems stable now (2) Agitation: Code(s): R45.1 - Restlessness and agitation Status: Acute Assessment and Plan: Likely combination of alcohol withdrawal and delirium Continue Librium Off Precedex P.r.n. Ativan Monitor Agitation has resolved. He is more and hypoactive delirium site. Doubt alcohol withdrawal ongoing since he is more than a week of admission CT head is negative MRI brain with no acute findings, limited with motion Much improved now (3) Alcohol withdrawal: Code(s): F10.939 - Alcohol use, unspecified with withdrawal, unspecified Status: Acute Assessment and Plan: Continue in thiamine and folic acid (4) Delirium: Code(s): R41.0 - Disorientation, unspecified Status: Acute Assessment and Plan: See above MRI brain negative for acute stroke. 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 Will continue physical therapy Dysphagia NG placed for feeding however had pulled out. Restrain p.r.n. re- attempt to NG placement and tube feed. PPN ordered for now. Re-attempted MBS 03/09/2025 and did well. Will start on a diet. Will stop PPN Fever mild spikes with mild leukocytosis noted. CT with sinusitis noted. Has some cough. Chest x-ray negative UA negative Started on doxycycline and metronidazole. Has allergy to penicillin with throat swelling. Right arm thrombophlebitis. Will check venous duplex DVT prophylaxis -Lovenox Stress ulcer prophylaxis -Pepcid Nutrition NPO as failed swallow evaluation Code Status - Full Code Subjective Date/time seen: 03/10/25 11:51 Interval history: 74-year-old male with a past medical history of Encephalomalacia, HTN, HLD, thoracic aortic aneurysm, CVA, COPD, alcohol abuse presents to the ED on 02/25/2025 with complaints of increased dyspnea. 03/01: Patient was seen during the morning rounds today. Patient is a slight withdrawal. Requiring soft restraint. No shortness breath or chest pain. 03/02: Patient was seen during the morning rounds today. Less withdrawal, no sob or chest pain 03/03: Patient was seen during morning rounds today. No new overnight complaints. No shortness of breath or chest pain. Withdrawal is better. 03/04/2025 Patient was seen during morning rounds today. Patient is feeling better. No shortness of breath or chest pain. Patient withdrawal is much better. 03/05/2025: No overnight events. Patient failed swallow evaluation this a.m.. Patient is still drowsy not agitated. Discussed with nursing staff 03/06/2025: Overnight he pulled all the NG is there has been placed. Still confused with slurred speech. Work with therapy. 03/07/2025: Patient more somnolent today. No other overnight events. CT head was reviewed. Labs reviewed. Remains on PPI and that was ordered yesterday. 03/08/2025: Patient more awake today. Having some cough. Was also febrile last night. Remains on PPN. 03/09/2025: Patient is much more awake and alert oriented. Feeling better wants to go home. MBS performed today and did not aspirate. Will be started on diet. No fever. Right arm swollen due to thrombophlebitis. 03/10/2025 Patient was seen in the morning today. Feeling much better. No Shortness of breath or chest pain. No abdominal pain, nausea, no vomiting. Review of Systems Review of Systems: All systems reviewed & are unremarkable except as noted in HPI and below ROS unobtainable: Yes unobtainable due to medical condition and unobtainable due to mental status Exam Narrative: General: Pt is awake and alert oriented x3, not in acute distress Lungs/Chest: Trachea central course BS B/L, No crackles or wheezing. Cardiac: RRR. Normal S1 S2. No murmurs Circulation: Pedal pulses are intact and symmetrical. Abdomen: Normal bowel sounds.. Soft. NT. ND. Extremities: No clubbing, cyanosis or edema. Right upper extremity thrombophelibits : Samson in place right arm swelling Neurologic: Patient is awake and alert, oriented to time place and person right side weak, much stronger Skin: No Rash Objective Data Vital Signs Vital Signs: Vital Signs - 24 hr 03/09/25 14:00 03/09/25 21:51 03/10/25 00:55 Temperature 36.5 C 36.3 C L Pulse Rate 97 101 H 78 Respiratory Rate 20 20 16 Blood Pressure 120/71 103/75 Pulse Oximetry 100 98 98 Oxygen Delivery Room Air Fraction of Inspired Oxygen 21 03/10/25 00:55 03/10/25 06:00 03/10/25 08:00 Temperature 36.3 C L Pulse Rate 78 106 H Respiratory Rate 16 20 Blood Pressure 132/82 Pulse Oximetry 99 Oxygen Delivery Room Air Fraction of Inspired Oxygen Intake/Output Intake/Output: Intake & Output 03/07/25 03/08/25 03/09/25 03/10/25 23:59 23:59 23:59 23:59 Intake Total 2808.7 2650 1650 240 Output Total 400 Balance 2808.7 2250 1650 240 Meds/Results Medications: Active Medications Generic Name Dose Route Start Last Admin Trade Name Freq PRN Reason Stop Dose Admin Acetaminophen 325 mg 03/10/25 09:03 Acetaminophen 325 Mg Tablet PO Q4H PRN Mild Pain (1-3) or Fever Albuterol/Ipratropium 3 ml 02/27/25 09:18 03/10/25 00:55 Ipratropium 0.5 Mg/Albuterol Sulfate 2.5 Mg (Base) Ampul.Neb 3 Ml INHALATION 3 ml Q6HRT PRN Administration Wheezing Aspirin 81 mg 02/26/25 08:00 03/10/25 08:09 Aspirin 81 Mg Chewable Tablet PO 81 mg DAILY@0800 STEPHANIE Administration Atorvastatin Calcium 20 mg 02/25/25 21:00 03/09/25 21:07 Atorvastatin 20 Mg Tablet PO 20 mg QHS STEPHANIE Administration Calcium Carbonate 200 mg 02/25/25 16:43 03/10/25 08:09 Calcium Carbonate (Tums) 500 Mg (200 Mg Elemental) PO 200 mg Q6H PRN Administration Indigestion Dextrose 12.5 gm 03/02/25 23:56 Dextrose 50% 25 Gm/50 Ml Syringe IV PUSH PRN PRN Hypoglycemia Protocol Doxycycline Hyclate 100 mg 03/09/25 21:00 03/10/25 08:09 Doxycycline Hyclate 100 Mg Tablet PO 100 mg Q12HR STEPHANIE Administration Enoxaparin Sodium 40 mg 02/25/25 21:00 03/09/25 21:07 Enoxaparin 40 Mg/0.4 Ml Syringe SUB-Q 40 mg HS STEPHANIE Administration Famotidine 20 mg 02/26/25 09:00 03/10/25 11:41 Famotidine 20 Mg/2 Ml Vial IV PUSH Not Given Q12HR STEPHANIE Fish Oil 1 gm 02/25/25 21:00 03/10/25 08:09 [place] 3 Polyunsat Fatty Acids 1 Gm Cap PO 1 gm Q12HR STEPHANIE Administration Folic Acid 1 mg 02/26/25 09:00 03/10/25 08:09 Folic Acid 1 Mg Tablet PO 1 mg DAILY STEPHANIE Administration Glucagon 1 mg 03/02/25 23:56 Glucagon For Inj 1 Mg Vial IM PRN PRN Hypoglycemia Protocol Glucose 15 gm 03/02/25 23:56 Glucose Oral Gel 15 Gm Of Glucse In 37.5 Gm Tube PO PRN PRN Hypoglycemia Protocol Dextrose 1,000 mls @ 100 mls/hr 03/02/25 23:56 Dextrose 5% 1,000 Ml IVPB PRN PRN Hypoglycemia Protocol Dextrose 1,000 mls @ 50 mls/hr 03/06/25 15:35 03/09/25 15:50 Dextrose 10% IV CONT Infused .Q20H PRN Infusion if PN is interrupted Loratadine 10 mg 02/26/25 09:00 03/10/25 08:09 Loratadine 10 Mg Tablet PO 10 mg DAILY STEPHANIE Administration Losartan Potassium 25 mg 02/26/25 09:00 03/10/25 08:09 Losartan Potassium 25 Mg Tablet BY MOUTH 25 mg DAILY STEPHANIE Administration Metronidazole 500 mg 03/09/25 22:00 03/10/25 05:33 Metronidazole 500 Mg Tablet PO 500 mg Q8HR STEPHANIE Administration Sodium Chloride 1 spray 03/09/25 20:00 03/09/25 21:08 Saline 0.65% Anotny Soln 44 Ml Btl NASAL 1 spray Q6HR PRN Administration Congestion Thiamine HCl 100 mg 02/26/25 09:00 03/10/25 08:09 Thiamine Hcl 100 Mg Tablet PO 100 mg DAILY STEPHANIE Administration Radiology Results: ITS Impressions Head CT 03/06/25 14:18 IMPRESSION: 1. No acute intracranial findings. Significant chronic ischemic changes particularly involving basal ganglia on the left side with internal capsule with presence of old lacunar infarct. 2. Sinusitis as described above. Brain MRI 03/07/25 16:03 IMPRESSION: 1. Significantly compromised examination due to motion artifact on multiple sequences. 2. No evidence of acute ischemia on diffusion sequence. Presence of significant chronic ischemic changes as described above. Abdomen X-Ray 03/07/25 20:14 IMPRESSION: 1. Nasogastric tube in stomach. Chest X-Ray 03/08/25 10:17 Impression: 1: Mild interstitial infiltrates bilaterally, likely chronic. Mild edema not excluded. Modified Barium Swallow 03/09/25 16:00 IMPRESSION: Patient tolerated regular consistency oral feedings in the upright position. Please correlate with speech pathologist findings and specific feeding recommendations. Venous Doppler Study 03/09/25 16:29 IMPRESSION: 1. No deep venous thrombosis. Labs Labs: Laboratory Results - last 24 hr 03/10/25 05:21 Sodium 134 L Potassium 3.9 Chloride 104 Carbon Dioxide 23 Anion Gap 7 BUN 25 H Creatinine 0.70 Estim Creat Clear Calc 59 Estimated GFR > 60 Glucose 103 Calcium 8.4 Phosphorus 3.8 Quality VTE Prophylaxis VTE prophylaxis: pharmacologic ordered
--- NOTE | 2025-03-10 12:14 | PM.DS ---
DS: Admitting Diagnosis Discharge Date 03/10/2025 Admitting Diagnosis Acute exacerbation of COPD DS: Discharge Diagnosis Discharge Diagnosis (1) Acute exacerbation of chronic obstructive pulmonary disease: Code(s): J44.1 - Chronic obstructive pulmonary disease with (acute) exacerbation Status: Acute Assessment and Plan: Patient is saturating well on room air Continue bronchodilators, fluticasone Initially treated with steroid and doxycycline This seems stable now (2) Agitation: Code(s): R45.1 - Restlessness and agitation Status: Acute Assessment and Plan: Likely combination of alcohol withdrawal and delirium Continue Librium Off Precedex P.r.n. Ativan Monitor Agitation has resolved. He is more and hypoactive delirium site. Doubt alcohol withdrawal ongoing since he is more than a week of admission CT head is negative MRI brain with no acute findings, limited with motion Much improved now (3) Alcohol withdrawal: Code(s): F10.939 - Alcohol use, unspecified with withdrawal, unspecified Status: Acute Assessment and Plan: Continue in thiamine and folic acid (4) Delirium: Code(s): R41.0 - Disorientation, unspecified Status: Acute Assessment and Plan: See above MRI brain negative for acute stroke. 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 Will continue physical therapy Dysphagia NG placed for feeding however had pulled out. Restrain p.r.n. re-attempt to NG placement and tube feed. PPN ordered for now. Re-attempted MBS 03/09/2025 and did well. Will start on a diet. Will stop PPN Fever mild spikes with mild leukocytosis noted. CT with sinusitis noted. Has some cough. Chest x-ray negative UA negative Started on doxycycline and metronidazole. Has allergy to penicillin with throat swelling. Right arm thrombophlebitis. Will check venous duplex DVT prophylaxis -Lovenox Stress ulcer prophylaxis -Pepcid Nutrition NPO as failed swallow evaluation Code Status - Full Code DS: Summary Hospital Course Reason for hospitalization: Acute exacerbation of COPD Hospital Course: 74 years old male was admitted with acute exacerbation of COPD. Patient has history of chronic alcohol abuse. Patient was also found to be in a severe withdrawal. Patient was given IV antibiotic, nebulizer treatment and steroids. CIWA scale was followed. Consult was given to patient. Patient did not have any complicating the stay in the hospital. Today patient feeling better was discharged home stable condition. Follow-up scheduled. Status at Discharge Cognitive/behavioral status at discharge: Stable Time Spent with Patient Time attestation: Total time spent providing and/or coordinating discharge services: 30 minutes Exam Narrative: General: Pt is awake and alert oriented x3, not in acute distress Lungs/Chest: Trachea central course BS B/L, No crackles or wheezing. Cardiac: RRR. Normal S1 S2. No murmurs Circulation: Pedal pulses are intact and symmetrical. Abdomen: Normal bowel sounds.. Soft. NT. ND. Extremities: No clubbing, cyanosis or edema. Right upper extremity thrombophelibits : Samson in place right arm swelling Neurologic: Patient is awake and alert, oriented to time place and person right side weak, much stronger Skin: No Rash DS: Data Data Completed and Pending Labs on day of discharge: Labs from last 24 hours 03/10/25 05:21 Sodium 134 L Potassium 3.9 Chloride 104 Carbon Dioxide 23 Anion Gap 7 BUN 25 H Creatinine 0.70 Estim Creat Clear Calc 59 Estimated GFR > 60 Glucose 103 Calcium 8.4 Phosphorus 3.8 Discharge Plan Discharge Attending physician on discharge: Meng Olvera Consulting providers: Kalpesh Arredondo Adarsh Discharging Clinician: Meng Olvera Patient Disposition: Home Activity: as tolerated Diet: as tolerated Patient Instructions: Antibiotic Form Patient Language: Bahamian Stand Alone Forms: General Discharge Information Follow-up/Referrals: Cb Malcolm DO [Primary Care Provider, Family Practice] Discharge Medications: New thiamine HCl (vitamin B1) [Vitamin B-1] 100 mg Tablet 100 mg PO DAILY Qty: 30 0RF doxycycline hyclate 100 mg Tablet 100 mg PO Q12HR Qty: 14 0RF ciprofloxacin HCl 250 mg Tablet 250 mg PO Q12HR Qty: 14 0RF Continued albuterol sulfate 90 mcg/actuation HFA aerosol inhaler 2 puff INHALATION Q4H PRN (Reason: bronchospasm) Qty: 8.5 3RF Breztri Aerosphere 160-9-4.8 mcg/actuation HFA aerosol inhaler See Rx Instructions .ROUTE .COMPLEX Qty: 11 0RF Dose Instruction: Inhale 2 puffs by mouth twice daily Rx Instructions: Inhale 2 puffs by mouth twice daily atorvastatin 20 mg tablet 20 mg PO QHS Qty: 30 0RF Rx Instructions: NEEDS APPOINTMENT losartan 25 mg tablet See Rx Instructions .ROUTE .COMPLEX Qty: 90 0RF Dose Instruction: Take 1 tablet by mouth once daily Rx Instructions: Take 1 tablet by mouth once daily aspirin 81 mg tablet 81 mg PO DAILY Qty: 30 0RF Discontinued loratadine [Claritin] 10 mg tablet 10 mg PO DAILY Qty: 90 0RF omega-3 fatty acids-vitamin E 1,000 mg capsule 1 cap PO QAM AND QHS Date of admission: 02/26/25 15:22 Primary Care Provider: bC Malcolm Admitting Provider: Donald Choi Attending physician on admission: Donald Choi Condition: Stable Quality VTE Prophylaxis VTE prophylaxis: pharmacologic ordered
--- NOTE | 2025-03-10 13:00 | PC.NURSE ---
patient adamant on going home. pt refusing to stay in bed. pt was educated on infection and need for antibiotic, pt insisted on being discharged home. provider contacted about pt condition and discharge was ordered.
== END 2025-03-10 13:50 | disposition home or self-care (01) | DRG 190 ==
LOC: ANHED 12:02 → ANH3MEDSUR 13:18 → ANHICU 02-27 00:24 → ANHIMU 02-28 09:51 → ANH3MEDSUR 03-10 12:12 → ANHIMU 03-12 10:18 → ANH3MEDSUR 03-12 10:18
PROVIDERS: Internal Medicine; Nurse Practitioner Adult Health; Nurse Practitioner Gerontology; Admitting Provider General Practice; Emergency Provider Emergency Medicine; PCP Family Medicine; Visit Provider Internal Medicine
DX: J44.1 Chronic obstructive pulmonary disease with (acute) exacerbation (principal); J18.9 Pneumonia, unspecified organism; I69.351 Hemiplegia and hemiparesis following cerebral infarction affecting right dominant side; F10.131 Alcohol abuse with withdrawal delirium; I25.10 Atherosclerotic heart disease of native coronary artery without angina pectoris; I80.8 Phlebitis and thrombophlebitis of other sites; J44.0 Chronic obstructive pulmonary disease with (acute) lower respiratory infection; J32.9 Chronic sinusitis, unspecified; G93.89 Other specified disorders of brain; D36.10 Benign neoplasm of peripheral nerves and autonomic nervous system, unspecified; R73.03 Prediabetes; R44.1 Visual hallucinations; Z20.822 Contact with and (suspected) exposure to COVID-19; Z87.891 Personal history of nicotine dependence; Z79.82 Long term (current) use of aspirin
CPT/HCPCS: 36415; 43752; 70450; 70551; 71045; 74230; 80048; 80053; 81003; 82803; 82948; 83605; 83735; 83880; 84100; 84466; 84478; 84484; 85025; 85027; 85610; 85730; 87040; 87637; 87641; 92526; 92610; 93005; 93971; 94640; 96365; 96366; 97110; 97116; 97161; 97162; 97165; 97166; 97530; 97535; 99285; A9270; G0378; J1650; J1836; J1885; J2060; J2919; J3360; J3411; J3475; J3480; J7030; J7040; J7042; J7120; J7121; J7512